=== PATIENT | male | born 1975 | race Caucasian/White ===

== ENCOUNTER 2016-07-15 11:50 | Emergency (ER) | payer BC, OTHER ==
[~2016-07-15] VITALS: Ht 190.5 cm; Wt 87.5 kg
[~2016-07-15 11:50] MED LIST: ACET325T96 PO; ASCA500 PO; CHOL100010 PO; CLS1 PO; CYAN100020 PO; ESCI1TAB10 PO; HYDR-5688 PO; PRD5 PO; RMCI IV; RWSE PR; ZOLP5TAB PO
[2016-07-15 11:53] VITALS: TEMP 36.5; Ht 190.5 cm; Wt 87.5 kg
[2016-07-15] MEDS ORDERED: DULO60CA44 PO (12:07)
[2016-07-15] MEDS ORDERED: VEDO1INJ IV (12:07)
[2016-07-15] MEDS ORDERED: ONDANSETRON INJ 2 MG/ML 2 ML VIAL IV STA (12:27)
[2016-07-15] MEDS ORDERED: SODIUM CHLORIDE 0.9% 1000ML 1,000 ML IV STA (12:27)
[2016-07-15 12:57] LABS: BASO % 0.3 %; BASO ABS # 0.02 K/uL (0-0.2); COMPLETE YES; EOS % 5.3 %; HEMATOCRIT 38.5 % (42-52); IG% 0.4 %; LYMPH % 21.1 %; LYMPH ABS # 1.55 K/uL (1.2-3.4); MEAN CELL VOLUME 79.7 fL (80-100); MEAN CORPUSCULAR HEMOGLOBIN 28.6 pg (25-34); MEAN CORPUSCULAR HGB CONC 35.8 g/dl (32-36); MEAN PLATELET VOLUME 8.5 fL (7.4-10.4); MONO % 6.5 %; NEUT % 66.4 %; PLATELET COUNT 155 K/uL (130-400); RED BLOOD COUNT 4.83 M/uL (4.7-6.1); WHITE BLOOD COUNT 7.34 K/uL (4.8-10.8)
[2016-07-15 13:15] LABS: CALCIUM 8.8 mg/dl (8.5-10.1); POTASSIUM 3.4 mmol/L (3.5-5.1)
[2016-07-15] MEDS ORDERED: PRED20TA PO (14:41)
--- NOTE | 2016-07-15 14:55 | Gastrointestinal Consultation ---
Gastrointestinal Consultation Date of Consultation: Jul 15, 2016 Consulting Physician: Donis Reason for Consultation: IBD flare History of Present Illness Patient is a 40 year old male with a past medical history significant for ulcerative colitis. This was first diagnosed in 2003. He presented to the ED today for evaluation of continued rectal bleeding with diarrhea and associated abdominal pain. GI was consulted. He follows closely with Dr. Edouard. He has failed treatment with Remicade, mesalamine, steroids and recently started treatment with entyvio infusion (first dose 07/14/16). He reports continued bloody BM, reporting stooling up to 10 times daily with associated abdominal pain. His abdominal pain is localized in the left lower quadrant and is sharp and cramping. He denies fever,chills, chest pain, SOB, black BMs, N/V. The patient is adamant about going home this afternoon and does not wish to be admitted for IV steroid treatment or a more thorough inpatient work-up, stating "I cannot miss work tomorrow". He is without an elevated white count and HGB is 13.8. His most recent colonoscopy was in May - severe proctosigmoiditis. Past Medical/Surgical History Medical Problems: (1) Abdominal pain Status: Acute (2) GI bleed Status: Acute (3) Intractable pain Status: Acute (4) Nausea vomiting and diarrhea Status: Acute (5) Renal colic Status: Acute Family History Diabetes mellitus FHx: cancer Social History Smoking Status: Never Smoker Alcohol Use: occasionally Drug Use: none Marital Status: Housing Status: lives with family Occupation Status: employed Allergies Coded Allergies: Mercaptopurine (Verified Allergy, Severe, SUPPRESSED IMMUNITY, 07/15/16) Morphine (Verified Adverse Reaction, Mild, HEADACHE, 07/15/16) Prochlorperazine (Verified Adverse Reaction, Mild, DYSTONIC, 07/15/16) NSAIDs (Verified Adverse Reaction, Unknown, SEE BELOW, 07/15/16) DOES NOT TAKE D/T COLITIS Current Medications Home Meds and Scripts Medications Dose Route/Sig Max Daily Dose Days Date Category Cymbalta (Duloxetine Hcl) 60 Mg Cap 60 Mg PO DAILY 07/15/16 Reported Entyvio (Vedolizumab) 300 Mg Inj Unknown Dose IV 07/15/16 Reported Vitamin B12 (Cyanocobalamin) 1,000 Mcg Tab 1,000 Mcg PO DAILY 04/08/16 Reported Vitamin D (Cholecalciferol) 1,000 Unit Tab 1,000 Units PO DAILY 04/08/16 Reported Vitamin C (Ascorbic Acid) 500 Mg Tab 500 Mg PO DAILY 04/08/16 Reported [place] 5MG/325MG (Acetaminophen/Hydrocodone Bitart) Tab 1 Tablet PO Q4H PRN 04/08/16 Reported Ambien (Zolpidem Tartrate) 5 Mg Tab 1 Tab PO HS PRN 30 11/29/15 Reported Tylenol (Acetaminophen) 325 Mg Tab 325 Mg PO Q4 PRN 11/17/15 Reported Review of Systems Constitutional: No chills, No fever Respiratory: No cough, No shortness of breath Cardiac: No chest pain, No edema Abdomen: + GI bleeding, + diarrhea, + pain, No nausea, No vomiting Physical Exam Date Time Temp Pulse Resp B/P Pulse Ox O2 Delivery O2 Flow Rate FiO2 07/15/16 13:38 81 16 99 Room Air 07/15/16 12:40 74 18 117/78 97 Room Air 07/15/16 11:53 36.5 90 18 137/90 97 Room Air General Appearance: no apparent distress Eyes: PERRL ENT: hearing grossly normal Neck: supple, trachea midline Respiratory/Chest: lungs clear, normal breath sounds, no respiratory distress, no accessory muscle use Cardiovascular: regular rate, rhythm, no edema, no gallop, no JVD, no murmur Abdomen: normal bowel sounds, soft, no organomegaly, no pulsatile mass, + tenderness Neurologic/Psych: alert, normal mood/affect, oriented x 3 Skin: normal color, no jaundice, warm/dry, no rash Laboratory Results Last 24 Hours Test 07/15/16 12:34 White Blood Count 7.34 K/uL Red Blood Count 4.83 M/uL Hemoglobin 13.8 g/dL Hematocrit 38.5 % Mean Corpuscular Volume 79.7 fL Mean Corpuscular Hemoglobin 28.6 pg Mean Corpuscular Hemoglobin Concent 35.8 g/dl Platelet Count 155 K/uL Mean Platelet Volume 8.5 fL Neutrophils (%) (Auto) 66.4 % Lymphocytes (%) (Auto) 21.1 % Monocytes (%) (Auto) 6.5 % Eosinophils (%) (Auto) 5.3 % Basophils (%) (Auto) 0.3 % Neutrophils # (Auto) 4.87 K/uL Lymphocytes # (Auto) 1.55 K/uL Monocytes # (Auto) 0.48 K/uL Eosinophils # (Auto) 0.39 K/uL Basophils # (Auto) 0.02 K/uL RDW Standard Deviation 43.8 fL RDW Coefficient of Variation 15.1 % Immature Granulocyte % (Auto) 0.4 % Immature Granulocyte # (Auto) 0.03 K/uL Sodium Level 141 mmol/L Potassium Level 3.4 mmol/L Chloride Level 106 mmol/L Carbon Dioxide Level 23 mmol/L Anion Gap 12.0 mmol/L Blood Urea Nitrogen 12 mg/dl Creatinine 1.00 mg/dl Est Creatinine Clear Calc Drug Dose 115.0 ml/min Estimated GFR () 107.1 Estimated GFR (Non- 92.4 BUN/Creatinine Ratio 12.0 Random Glucose 83 mg/dl Calcium Level 8.8 mg/dl Total Bilirubin 0.5 mg/dl Direct Bilirubin 0.1 mg/dl Aspartate Amino Transf (AST/SGOT) 15 U/L Alanine Aminotransferase (ALT/SGPT) 16 U/L Alkaline Phosphatase 52 U/L Total Protein 6.8 gm/dl Albumin 3.5 gm/dl Lipase 134 U/L Impression Patient is a 40 year old male with abdominal pain, rectal bleeding and diarrhea with a recent colonoscopy less than a month ago that was suggestive of severe proctosigmoiditis. He has recently stated Entyvio but appears to be in an acute flare, will treat with steroids now. Plan 1. stool cultures - c.diff 2. Begin steroid taper - 40 mg prednisone x 1 week, 30 mg prednisone x 1 week, 20 mg prednisone x 1 week, 10 mg prednisone x 1 week 3. Follow up outpatient with Dr. Edouard 4. Please seek medical attention with persisting or worsening rectal bleeding, abdominal pain or if new symptoms arise. Please discharge patient from the ED with a prescription to complete the above described prednisone taper.
[2016-07-15 15:04] VITALS: BP 122/78; PULSE 68; O2SAT 97
--- NOTE | 2016-07-15 17:45 | EMERGENCY ROOM VISIT NOTE ---
History Report prepared by Adriano: Carmen Treadwell Under the Supervision of: Dr. Bharat Funk M.D. First contact with patient: 12:11 Chief Complaint: ABDOMINAL PAIN Stated Complaint: COLITIS FLARE, AB PAIN, DIARRHEA Nursing Triage Summary: Ulcerative colitis flair for 4 months, told by PCP to come to ED. Unable to keep hydrated. 9lb weight loss in 8 days. Diarrhea. History of Present Illness The patient is a 40 year old male who presents to the Emergency Room with complaints of increased pain to his lower left abdominal quadrant over the past 8 days. Currently, he rates his discomfort as a 7/10, which becomes worse after eating, and when moving his bowels. The patient has a history of ulcerative colitis and experienced a flare up for 4 months prior to arrival, including pain to his lower left abdominal quadrant and multiple episodes of bloody diarrhea. At that time, he visited the ED and was hospitalized, and after being seen by GI, he was given mesalamine enemas and was then placed on steroids. As his pain and diarrhea has persisted since that time, the patient had a colonoscopy on June 24, which showed moderately severe proctosigmoiditis. Over the past 8 days, patient has continued to experience worsening pain to his left lower quadrant, as well as several movements of bloody diarrhea. He states that he has not been able to eat or drink very well as it has become to painful , and he now believes that he has become dehydrated. Patient states that he was switched from Remicade to Entyvio yesterday without improvement of his symptoms. He denies recent fevers, chills, chest pain, shortness of breath, vomiting or urinary symptoms. Source of History: patient Onset: over the past 8 days Position: abdomen (LLQ) Symptom Intensity: 7/10 Timing: worsening Modifying Factors (Worsening): eating, defecation Associated Symptoms: + diarrhea, No SOB, No chest pain, No chills, No fevers , No urinary symptoms, No vomiting Review of Systems See HPI for pertinent positives & negatives. A total of 10 systems reviewed and were otherwise negative. Past Medical & Surgical Medical Problems: (1) back surgery (2) Clostridium difficile colitis (3) Ulcerative colitis (4) Ulcerative colitis Family History Diabetes mellitus FHx: cancer Social History Smoking Status: Never Smoker Alcohol Use: occasionally Drug Use: none Marital Status: Housing Status: lives with family Occupation Status: employed Current/Historical Medications Scheduled Ascorbic Acid (Vitamin C), 500 MG PO DAILY Cholecalciferol (Vitamin D), 1,000 UNITS PO DAILY Cyanocobalamin (Vitamin B12), 1,000 MCG PO DAILY Duloxetine Hcl (Cymbalta), 60 MG PO DAILY Prednisone (Prednisone), 2 TAB PO DAILY Scheduled PRN Acetaminophen Tab (Tylenol), 325 MG PO Q4 PRN for Pain or Fever Hydrocodone/Acetaminophen 5MG/325MG ([place] 5MG/325MG), 1 TABLET PO Q4H PRN for Pain Zolpidem Tartrate (Ambien), 1 TAB PO HS PRN for Sleep Miscellaneous Medications Vedolizumab (Entyvio), Unknown Dose IV Allergies Coded Allergies: Mercaptopurine (Verified Allergy, Severe, SUPPRESSED IMMUNITY, 07/15/16) Morphine (Verified Adverse Reaction, Mild, HEADACHE, 07/15/16) Prochlorperazine (Verified Adverse Reaction, Mild, DYSTONIC, 07/15/16) NSAIDs (Verified Adverse Reaction, Unknown, SEE BELOW, 07/15/16) DOES NOT TAKE D/T COLITIS Physical Exam Vital Signs Date Time Temp Pulse Resp B/P Pulse Ox O2 Delivery O2 Flow Rate FiO2 07/15/16 15:04 68 16 122/78 97 07/15/16 13:38 81 16 99 Room Air 07/15/16 12:40 74 18 117/78 97 Room Air 07/15/16 11:53 36.5 90 18 137/90 97 Room Air Physical Exam Constitutional: Vital signs reviewed. Eyes: Pupils are equal round reactive to light. Conjunctiva are noninjected. ENT: Pharynx is clear without erythema or exudate. Mucous membranes are moist. Neck supple without meningeal signs. Respiratory: Clear to auscultation bilaterally. Breath sounds are equal bilaterally. Cardiovascular: Regular rate and rhythm. No rubs or gallops. GI: Soft, nondistended. Tenderness to the left lower quadrant. Bowel sounds are present. Musculoskeletal: No peripheral edema. No CVA tenderness. Integumentary: No cyanosis. Neurological: The patient is awake and alert. No focal deficits. Psychiatric: Normal affect. Medical Decision & Procedures Laboratory Results 07/15/16 12:34 Red Blood Count 4.83, Mean Corpuscular Volume 79.7, Mean Corpuscular Hemoglobin 28.6, Mean Corpuscular Hemoglobin Concent 35.8, Mean Platelet Volume 8.5, Neutrophils (%) (Auto) 66.4, Lymphocytes (%) (Auto) 21.1, Monocytes (%) (Auto) 6.5, Eosinophils (%) (Auto) 5.3, Basophils (%) (Auto) 0.3, Neutrophils # (Auto) 4.87, Lymphocytes # (Auto) 1.55, Monocytes # (Auto) 0.48, Eosinophils # (Auto) 0.39, Basophils # (Auto) 0.02 07/15/16 12:34 Test 07/15/16 12:34 White Blood Count 7.34 K/uL (4.8-10.8) Red Blood Count 4.83 M/uL (4.7-6.1) Hemoglobin 13.8 g/dL (14.0-18.0) Hematocrit 38.5 % (42-52) Mean Corpuscular Volume 79.7 fL (80-100) Mean Corpuscular Hemoglobin 28.6 pg (25-34) Mean Corpuscular Hemoglobin Concent 35.8 g/dl (32-36) Platelet Count 155 K/uL (130-400) Mean Platelet Volume 8.5 fL (7.4-10.4) Neutrophils (%) (Auto) 66.4 % Lymphocytes (%) (Auto) 21.1 % Monocytes (%) (Auto) 6.5 % Eosinophils (%) (Auto) 5.3 % Basophils (%) (Auto) 0.3 % Neutrophils # (Auto) 4.87 K/uL (1.4-6.5) Lymphocytes # (Auto) 1.55 K/uL (1.2-3.4) Monocytes # (Auto) 0.48 K/uL (0.11-0.59) Eosinophils # (Auto) 0.39 K/uL (0-0.5) Basophils # (Auto) 0.02 K/uL (0-0.2) RDW Standard Deviation 43.8 fL (36.4-46.3) RDW Coefficient of Variation 15.1 % (11.5-14.5) Immature Granulocyte % (Auto) 0.4 % Immature Granulocyte # (Auto) 0.03 K/uL (0.00-0.02) Anion Gap 12.0 mmol/L (3-11) Est Creatinine Clear Calc Drug Dose 115.0 ml/min Estimated GFR () 107.1 Estimated GFR (Non- 92.4 BUN/Creatinine Ratio 12.0 (10-20) Calcium Level 8.8 mg/dl (8.5-10.1) Total Bilirubin 0.5 mg/dl (0.2-1) Direct Bilirubin 0.1 mg/dl (0-0.2) Aspartate Amino Transf (AST/SGOT) 15 U/L (15-37) Alanine Aminotransferase (ALT/SGPT) 16 U/L (12-78) Alkaline Phosphatase 52 U/L (45-117) Total Protein 6.8 gm/dl (6.4-8.2) Albumin 3.5 gm/dl (3.4-5.0) Lipase 134 U/L (73-393) Laboratory results as reviewed by me. Medications Administered Medications (Trade) Dose Ordered Sig/Luis Carlos Route Start Time Stop Time Status Last Admin Dose Admin Ondansetron HCl 4 mg 4 mg NOW STAT IV 07/15/16 12:27 07/15/16 12:29 DC 07/15/16 12:41 4 MG Sodium Chloride (Nss 1000ml) 1,000 ml @ 999 mls/hr Q1H1M STAT IV 07/15/16 12:27 07/15/16 13:27 DC 07/15/16 12:41 999 MLS/HR ED Course 1215: The patient was evaluated in room A4. A complete history and physical exam was performed. 1227: NSS bolus IV and Zofran 4 mg IV were ordered. 1335: I have reviewed the results of the patient's previous colonoscopy, as well as his lab tests today. The lease attendant will be contacted. 1340: I discussed the patient's case with Yvonne Chang PA-C of GI. She will be in to evaluate the patient. 1440: Yvonne Chang PA-C has evaluated the patient. She suggested placing him on 40 mg of Prednisone for a week, and would then start him on a taper when she follows up with him in their office next week. Medical Decision This is a 40-year-old male who presents with abdominal pain. Differential diagnosis includes ulcerative colitis flare, enteritis, colitis, anemia. I did perform a limited focused review of portions of the patient's old chart on the electronic medical record. The patient was admitted in March for an ulcerative colitis flare. He was seen by GI, who added a mesalamine enema, then placed him on steroids. The patient also had a colonoscopy on June 24, which showed moderately severe proctosigmoiditis. I did evaluate the patient as noted above. He is presenting with continued pain for the past 4 months which has worsened over the past 8 days. IV access was established. I did treat the patient with IV Zofran. He was also given normal saline IV. I did order and review the patient's blood work as noted in the electronic medical record. He is slightly anemic. His white blood cell count is not elevated. His potassium is slightly low. This is likely from his diarrhea. I did consult gastroenterology. The patient was evaluated here by gastroenterology and after discussion with the patient they recommended the patient take prednisone. She asked me to place the patient on 40 mg of prednisone daily for a week and they will continue tapering prednisone follow up. The patient was therefore discharged with a prescription for prednisone. [place] Drug Monitoring Program Search Results: patient reviewed within database Drug Monitoring Findings: Patient is on the no narcotics list. Consults Time Called: 1335, 1440 Consulting Physician: Yvonne Chang PA-C GI Returned Call: 1340, 1440 1340: Discussed the patient's case. She will be in to evaluate him. 1440: Yvonne Chang PA-C has evaluated the patient. She suggested placing him on 40 mg of Prednisone for a week, and would then start him on a taper when she follows up with him in their office next week. Impression Primary Impression: Exacerbation of ulcerative colitis Scribe Attestation The scribe's documentation has been prepared under my direct and personally reviewed by me in its entirety. I confirm that the note above accurately reflects all work, treatment, procedures, and medical decision making performed by me. Departure Information Dispostion Home / Self-Care Prescriptions Prednisone (Prednisone) 20 Mg Tab 2 TAB PO DAILY for 7 Days, #14 TAB FOR 4 DAYS Prov: Bharat Funk M.D. 07/15/16 Referrals Oscar Ruiz M.D. (PCP) Forms Call Back Authorization, HOME CARE DOCUMENTATION FORM, IMPORTANT VISIT INFORMATION Patient Instructions Colitis Ulcerative Ch, My [facility] Additional Instructions You have been examined and treated today on an emergency basis only. This is not a substitute for, or an effort to provide, complete comprehensive medical care. It is impossible to recognize and treat all injuries or illnesses in a single emergency department visit. It is therefore important that you follow up closely with your physician within a week. Call as soon as possible for an appointment. Return for worsening symptoms or if you develop fever or any other concerning symptoms. Problem Qualifiers Primary Impression: Exacerbation of ulcerative colitis Digestive disease complication type: with rectal bleeding Qualified Codes: K51.911 - Ulcerative colitis, unspecified with rectal bleeding
[2016-09-10] MEDS ORDERED: ONDA8TAB12 PO (13:31)
== END 2016-07-15 15:04 | disposition home or self-care (01) ==
LOC: C.EDB 11:52 → C.EDA 15:04
DX: K51.90 Ulcerative colitis, unspecified, without complications (principal); Z79.899 Other long term (current) drug therapy

== ENCOUNTER → 2016-09-12 | Day surgery (SDC) | payer BC ==
[2016-09-10 13:31] VITALS: BMI 22.0
[~2016-09-12] VITALS: Ht 190.5 cm; Wt 79.5 kg
[~2016-09-12] MED LIST changes: +ACET-1222 PO; +ATV/1 PO; +CIPR-255 PO; +CLB/200 PO; -CLS1 PO; +DULO60CA44 PO; +ENOX40IN SQ; -ESCI1TAB10 PO; +FENTANYL CITRATE INJ 50 MCG/1 ML 2 ML VIAL IV ONE; +FENTANYL CITRATE INJ 50 MCG/1 ML 2 ML VIAL ONE; +FLUC150T54 PO; +HYDROmorphone INJ 1 MG/ML SYR IV PRN; +LIDOCAINE HCL 2% 2 ML VIAL (20MG/ML) ONE; +MULT-506 PO; +ONDA4TAB10 SL; +ONDA8TAB12 PO; +ONDANSETRON INJ 2 MG/ML 2 ML VIAL ONE; +OXYC-292 PO; +OXYC1TAB3 PO; -PRD5 PO; +PROPOFOL IV EMULSION 10 MG/ML 20 ML VIAL IV ONE; -RMCI IV; -RWSE PR; +ZOLP10TA6 PO
[2016-09-12 10:54] VITALS: Ht 190.5 cm; Wt 79.5 kg
--- NOTE | 2016-09-12 12:16 | Endo History and Physical ---
History & Physical Date of Service: Sep 12, 2016. Chief Complaint: HX ULCERATIVE COLITIS Referring Physician: DR. IFTIKHAR MA History of Present Illness H/o ulcerative colitis Past Surgical History Hx Cardiac Surgery: No Hx Internal Defibrillator: No Hx Pacemaker: No Hx Abdominal Surgery: Yes (APPY) Hx of Implantable Prosthesis: No Hx Post-Op Nausea and Vomiting: No Hx Cancer Surgery: No Hx Thoracic Surgery: Yes (LUMBAR CYST EXCISION-NEUROSURGERY) Hx Orthopedic: Yes (RT RCR, LEFT KNEE ARTHROSCOPY) Hx Urinary Tract Surgery: No Family History None Social History Smoking Status: Never Smoker Hx Substance Use: Yes (SEE MED REC) Hx Alcohol Use: Yes (RARELY) Allergies Coded Allergies: Mercaptopurine (Verified Allergy, Severe, SUPPRESSED IMMUNITY, 09/12/16) Morphine (Verified Adverse Reaction, Mild, HEADACHE, 09/12/16) Prochlorperazine (Verified Adverse Reaction, Mild, DYSTONIC, 09/12/16) NSAIDs (Verified Adverse Reaction, Unknown, SEE BELOW, 09/12/16) DOES NOT TAKE D/T COLITIS Current Medications Reported Home Medications Medications Dose Route/Sig Max Daily Dose Days Date Category Zofran (Ondansetron Hcl) 8 Mg Tab 8 Mg PO PRN PRN 09/10/16 Reported Cymbalta (Duloxetine Hcl) 60 Mg Cap 60 Mg PO QAM 07/15/16 Reported Vitamin B12 (Cyanocobalamin) 1,000 Mcg Tab 1,000 Mcg PO QAM 04/08/16 Reported Vitamin D (Cholecalciferol) 1,000 Unit Tab 1,000 Units PO QAM 04/08/16 Reported Vitamin C (Ascorbic Acid) 500 Mg Tab 500 Mg PO QAM 04/08/16 Reported [place] 5MG/325MG (Acetaminophen/Hydrocodone Bitart) Tab 1 Tablet PO Q4H PRN 04/08/16 Reported Ambien (Zolpidem Tartrate) 5 Mg Tab 1 Tab PO HS PRN 30 11/29/15 Reported Tylenol (Acetaminophen) 325 Mg Tab 325 Mg PO Q4 PRN 11/17/15 Reported Vital Signs Weight (Kilograms): 79.55 Height (Feet): 6 Height (Inches): 3 Date Time Temp Pulse Resp B/P Pulse Ox O2 Delivery O2 Flow Rate FiO2 09/12/16 11:00 37.3 97 18 108/66 95 Room Air Physical Exam General Appearance: no apparent distress Respiratory/Chest: Auscultation: breath sounds normal Cardiovascular: Heart Auscultation: RRR Abdomen: Inspection & Palpation: soft Assessment and Plan UC - EGD/cscopy
[2016-09-12] MEDS: FENTANYL CITRATE INJ 50 MCG/1 ML 2 ML VIAL IV PRN ×2 (13:46→14:25)
--- NOTE | 2016-09-12 13:51 | GI REPORT ---
Procedure Date: 09/12/2016 11:49 AM Procedure: Upper GI endoscopy Indications: Nausea Medicines: See the Anesthesia note for documentation of the administered medications Complications: No immediate complications. Estimated Blood Loss: Estimated blood loss: none. Procedure: Pre-Anesthesia Assessment: - After reviewing the risks and benefits, the patient was deemed in satisfactory condition to undergo the procedure. - ASA Grade Assessment: III - A patient with severe systemic disease. After obtaining informed consent, the endoscope was passed under direct vision. Throughout the procedure, the patient's blood pressure, pulse, and oxygen saturations were monitored continuously. The Scope was introduced through the mouth, and advanced to the second part of duodenum. The upper GI endoscopy was accomplished without difficulty. The patient tolerated the procedure well. Findings: The examined esophagus was normal. A few sessile polyps with no bleeding and no stigmata of recent bleeding were found in the stomach. A few of these polyps were removed with a cold biopsy forceps. Resection and retrieval were complete. The exam of the stomach was otherwise normal. The examined duodenum was normal. Biopsies were taken with a cold forceps in the entire duodenum for histology. Impression: - A few gastric polyps, sampled. Otherwise normal exam. Recommendation: - Await pathology results. - Discharge patient to home. Sam Edouard M.D. Sam Edouard MD 09/12/2016 1:51:47 PM This report has been signed electronically. Note Initiated On: 09/12/2016 11:49 AM I attest to the content of the Intraoperative Record and orders documented therein, exceptions below
[2016-09-12 14:15] VITALS: BP 114/69; PULSE 84; O2SAT 98
--- NOTE | 2016-09-12 14:22 | GI REPORT ---
Procedure Date: 09/12/2016 12:36 PM Procedure: Colonoscopy Indications: Follow-up of ulcerative colitis Medicines: See the Anesthesia note for documentation of the administered medications Complications: No immediate complications. Estimated Blood Loss: Estimated blood loss: none. Procedure: Pre-Anesthesia Assessment: - ASA Grade Assessment: III - A patient with severe systemic disease. After I obtained informed consent, the scope was passed under direct vision. Throughout the procedure, the patient's blood pressure, pulse, and oxygen saturations were monitored continuously. The scope was introduced through the anus and advanced to the terminal ileum. The colonoscopy was performed without difficulty. The patient tolerated the procedure well. Findings: The perianal and digital rectal examinations were normal. Prep through entire intestine was fair, with semi solid stool in the proximal colon. There was evidence of severe watson colitis. These changes were more severe distally, with shallow circumferential ulceration in the sigmoid. There was diffuse, circumferential granularity, friability, and edema of the entire colon; the colon was covered in exudate. Ileum was normal. Biopsies taken from throughout the colon and the ileum. Impression: Severe watson colitis. Fair prep. Recommendation: - Discharge patient to home. - Surgery referral. Sam Edouard M.D. Sam Edouard MD 09/12/2016 2:21:59 PM This report has been signed electronically. Note Initiated On: 09/12/2016 12:36 PM I attest to the content of the Intraoperative Record and orders documented therein, exceptions below
[2016-09-12 15:49] LABS: HEMATOCRIT 28.9 % (42-52); MEAN CELL VOLUME 76.1 fL (80-100); MEAN CORPUSCULAR HEMOGLOBIN 25.5 pg (25-34); MEAN CORPUSCULAR HGB CONC 33.6 g/dl (32-36); MEAN PLATELET VOLUME 7.4 fL (7.4-10.4); PLATELET COUNT 178 K/uL (130-400)
--- NOTE | 2016-09-12 15:49 | Discharge Instructions ---
Endoscopy Patient Instructions Date / Procedure(s) Performed Sep 12, 2016. Colonoscopy, EGD Allergy Information Coded Allergies: Mercaptopurine (Verified Allergy, Severe, SUPPRESSED IMMUNITY, 09/12/16) Morphine (Verified Adverse Reaction, Mild, HEADACHE, 09/12/16) Prochlorperazine (Verified Adverse Reaction, Mild, DYSTONIC, 09/12/16) NSAIDs (Verified Adverse Reaction, Unknown, SEE BELOW, 09/12/16) DOES NOT TAKE D/T COLITIS Discharge Date / Findings Sep 12, 2016. Severe colitis. + C diff. Unremarkable EGD. Provider Instructions Activity Restrictions - No exercising or heavy lifting for 24 hours. - Do not drink alcohol the day of the procedure. - Do not drive a car or operate machinery until the day after the procedure. - Do not make any important decisions or sign important papers in 24 hours after the procedure. Following Day: - Return to full activity which may include returning to work/school. Diet Start your diet with liquids and light foods (jello, soup, juice, toast). Then eat your usual diet if not nauseated. Treatment For Common After Affects For mild abdominal pain, bloating, or excessive gas: - Rest - Eat lightly - Lie on right side Follow-Up Information Follow-up with DR. IFTIKHAR MA as scheduled Anesthesia Information What You Should Know You have had a procedure that required some medicine to reduce anxiety and discomfort. This treatment is called moderate sedation. After receiving the treatment, you may be sleepy, but you will be able to breathe on your own. The effects of the treatment may last for several hours. Follow these instructions along with Activity/Diet recommendations noted above: * Do NOT do anything where dizziness or clumsiness would be dangerous. * Rest quietly at home today, then you can be up and about tomorrow. * Have a responsible person stay with you the rest of today. * You may have had an I.V. today. If so, you may take the dressing off later today. Recommendations Call your doctor if: * Trouble breathing * Continuous vomiting for more than 24 hours * Temperature above 101 degrees * Severe abdominal pain or bloating * Pain not relieved by pain medicine ordered * There is increased drainage or redness from any incision * A large amount of rectal bleeding greater than 2-3 tablespoons. (If you had a polyp/s removed or have hemorrhoids, a small amount of blood - from the rectum is to be expected.) * You have any unanswered questions or concerns. IN THE EVENT OF A SERIOUS EMERGENCY, GO TO THE NEAREST EMERGENCY ROOM Your discharge instructions were prepared by provider Sam Guzman. Patient Instructions Signature Page Jesús Cummins Patient (or Guardian) Signature/Date: I have read and understand the instructions given to me by my caregivers. Caregiver/RN/Doctor Signature/Date: The above-named patient and/or guardian has received patient instructions on this date. + Original Patient Signature Page (only) stays with chart. Please make copy for patient.
--- NOTE | 2016-09-12 15:50 | Anesthesiology Progress Note ---
Anesthesia Post Op Note Date & Time Sep 12, 2016 at 15:49 Vital Signs Pain Intensity: 6.0 Vital Signs Past 12 Hours Date Time Temp Pulse Resp B/P Pulse Ox O2 Delivery O2 Flow Rate FiO2 09/12/16 14:15 84 16 114/69 98 Room Air 09/12/16 13:25 94 16 93/52 98 Room Air 09/12/16 13:10 93 16 93/52 97 Room Air 09/12/16 12:55 99 16 105/67 97 Room Air 09/12/16 11:00 37.3 97 18 108/66 95 Room Air Notes Mental Status: alert / awake / arousable, participated in evaluation Pt Amnestic to Procedure: Yes Nausea / Vomiting: adequately controlled Pain: adequately controlled, improving with treatment Airway Patency, RR, SpO2: stable & adequate BP & HR: stable & adequate Hydration State: stable & adequate Anesthetic Complications: no major complications apparent Pain improved with several doses of fentanyl and dilaudid. States pain is now tolerable and is appropriate for discharge. All questions answered.
[2016-09-12 16:11] LABS: C-REACTIVE PROTEIN 7.75 mg/dl (0-0.29)
[2016-09-12 16:29] LABS: BASO % 0.5 %; BASO ABS # 0.04 K/uL (0-0.2); COMPLETE YES; EOS % 15.4 %; IG% 0.4 %; LYMPH % 23.9 %; LYMPH ABS # 1.98 K/uL (1.2-3.4); MONO % 7.5 %; NEUT % 52.3 %
== END | disposition home or self-care (01) ==
LOC: C.GI 10:26
PROVIDERS: ATTEND Internal Medicine Gastroenterology
DX: K51.00 Ulcerative (chronic) pancolitis without complications (principal); R11.0 Nausea; K31.7 Polyp of stomach and duodenum

== ENCOUNTER 2016-10-26 06:13 | Inpatient (IN) | payer BC ==
[2016-10-26] VITALS (7 sets, daily range): BP systolic 94–136; BP diastolic 60–78; PULSE 62–69; TEMP 36.6–36.9; O2SAT 98–99; Ht 190.5 cm; Wt 80.6 kg
[~2016-10-26] VITALS: Ht 190.5 cm; Wt 80.6 kg
[~2016-10-26 06:13] MED LIST changes: -ACET-1222 PO; -ATV/1 PO; -CIPR-255 PO; -CLB/200 PO; -ENOX40IN SQ; -FENTANYL CITRATE INJ 50 MCG/1 ML 2 ML VIAL IV ONE; -FENTANYL CITRATE INJ 50 MCG/1 ML 2 ML VIAL ONE; -FLUC150T54 PO; -HYDROmorphone INJ 1 MG/ML SYR IV PRN; -LIDOCAINE HCL 2% 2 ML VIAL (20MG/ML) ONE; -MULT-506 PO; -ONDA4TAB10 SL; -ONDANSETRON INJ 2 MG/ML 2 ML VIAL ONE; -OXYC-292 PO; -OXYC1TAB3 PO; -PROPOFOL IV EMULSION 10 MG/ML 20 ML VIAL IV ONE; -ZOLP10TA6 PO
[2016-10-26] MEDS ORDERED: ACET-1222 PO (06:48)
[2016-10-26] MEDS ORDERED: ENOX40IN SQ (06:52)
[2016-10-26] MEDS ORDERED: KETOROLAC TROMETHAMINE 30 MG/ML VIAL IV STA (06:53)
[2016-10-26] MEDS ORDERED: HYDROmorphone INJ 2 MG/ML SYR/VIAL IV STA (06:53)
[2016-10-26] MEDS ORDERED: ONDANSETRON INJ 2 MG/ML 2 ML VIAL IV STA (06:53)
[2016-10-26] MEDS ORDERED: HYDROmorphone INJ 2 MG/ML SYR/VIAL ONE ×2 (06:53→12:58)
[2016-10-26] MEDS ORDERED: SODIUM CHLORIDE 0.9% 1000ML 1,000 ML IV STA ×2 (06:53)
[2016-10-26] MEDS ORDERED: MULT-506 PO (06:53)
[2016-10-26 06:54] LABS: HEMATOCRIT 32.9 % (42-52); MEAN CELL VOLUME 74.6 fL (80-100); MEAN CORPUSCULAR HEMOGLOBIN 21.8 pg (25-34); MEAN CORPUSCULAR HGB CONC 29.2 g/dl (32-36); MEAN PLATELET VOLUME 7.7 fL (7.4-10.4); PLATELET COUNT 168 K/uL (130-400); RED BLOOD COUNT 4.41 M/uL (4.7-6.1)
[2016-10-26] MEDS ORDERED: OXYC1TAB3 PO (06:54)
[2016-10-26] MEDS ORDERED: KETOROLAC TROMETHAMINE 30 MG/ML VIAL ONE (06:54)
[2016-10-26] MEDS ORDERED: ONDANSETRON INJ 2 MG/ML 2 ML VIAL ONE (06:54)
--- NOTE | 2016-10-26 06:59 | EMERGENCY ROOM VISIT NOTE ---
History Report prepared by Adriano: He Martino Under the Supervision of: Dr. Rosa M Buck D.O. First contact with patient: 06:44 Chief Complaint: FLANK PAIN Stated Complaint: KIDNEY STONE History of Present Illness The patient is a 41 year old male who presents to the Emergency Room with complaints of persistent left sided flank pain beginning about 1 hour ago. He notes he had a kidney stone about 1 year ago, and that his current pain is similar, just on the other side. He rates his pain a 9/10 in severity. He reports having his colon removed due to ulcerative colitis 3 weeks ago at [facility], but has not had any other issues since this surgery. He has an ostomy bag in his abdomen, and denies and blood in the bag. He also denies any urinary symptoms. He is on oxycodone at home for his pain, but has not taken it in the past few days as he notes he has not needed. The patient admits to having an allergy to compazine, morphine, and mercaptopurine. Source of History: patient Onset: about 1 hour ago Position: other (left flank) Symptom Intensity: 9/10 Quality: other (flank pain) Timing: other (persistent) Associated Symptoms: No urinary symptoms Note: Patient denies any blood in his ostomy. Review of Systems See HPI for pertinent positives & negatives. A total of 10 systems reviewed and were otherwise negative. Past Medical & Surgical Medical Problems: (1) back surgery (2) Clostridium difficile colitis (3) Ulcerative colitis (4) Ulcerative colitis Surgical Problems: (1) History of appendectomy (2) History of knee surgery (3) History of shoulder surgery (4) History of total colectomy Family History Diabetes mellitus FHx: cancer Social History Smoking Status: Never Smoker Alcohol Use: occasionally Drug Use: none Marital Status: Housing Status: lives with family Occupation Status: employed Current/Historical Medications Scheduled Ascorbic Acid (Vitamin C), 500 MG PO QAM Cholecalciferol (Vitamin D), 1,000 UNITS PO QAM Cyanocobalamin (Vitamin B12), 1,000 MCG PO QAM Duloxetine Hcl (Cymbalta), 60 MG PO QAM Enoxaparin (Lovenox), 40 MG SQ DAILY Multivitamin (Multivitamin), 1 TAB PO DAILY Scheduled PRN Acetaminophen (Acetaminophen Extra Stren), 1,000 MG PO Q6H PRN for Pain or Fever Lorazepam (Ativan), 1 MG PO TID PRN for Anxiety Ondansetron Hcl (Zofran), 8 MG PO Q8 PRN for Nausea Oxycodone Ir (Roxicodone Ir), 10 MG PO Q6H PRN for Pain Zolpidem Tartrate (Ambien), 5 MG PO HS PRN for Sleep Allergies Coded Allergies: Mercaptopurine (Verified Allergy, Severe, SUPPRESSED IMMUNITY, 09/12/16) Morphine (Verified Adverse Reaction, Mild, HEADACHE, 09/12/16) Prochlorperazine (Verified Adverse Reaction, Mild, DYSTONIC, 09/12/16) NSAIDs (Verified Adverse Reaction, Unknown, SEE BELOW, 09/12/16) DOES NOT TAKE D/T COLITIS Physical Exam Vital Signs Date Time Temp Pulse Resp B/P Pulse Ox O2 Delivery O2 Flow Rate FiO2 10/26/16 09:35 99 Room Air 10/26/16 08:00 73 16 107/62 99 Room Air 10/26/16 06:17 36.5 91 18 116/80 100 Room Air Physical Exam General: Patient is extremely uncomfortable secondary to left flank pain. HEENT: Head - normocephalic and atraumatic Pupils are equal, round, and reactive to light. Extraocular eye muscles are intact, and sclera are anicteric. Nose - moist nasal mucosa without discharge. Mouth - moist buccal mucosa. Oropharynx is nonerythematous and there is no tonsillar exudate or edema noted. Neck: Supple; no JVD, nuchal rigidity, cervical lymphadenopathy, or auscultated bruits. Heart: Regular rate and rhythm. There is a normal S1 and S2 with no murmurs, clicks, or gallops appreciated. Lungs: Clear to auscultation bilaterally with no wheezes, rales, or rhonchi. Back: Left CVA tenderness noted. Abdomen: Soft, completely nontender, nondistended, with good bowel sounds. There are no palpable pulsatile masses or hepatosplenomegaly. There is no guarding, rigidity, or rebound noted. Extremities: No evidence of cyanosis, clubbing, or edema. There are easily palpable peripheral pulses. Skin: Skin is pale and diaphoretic. Medical Decision & Procedures ER Provider Diagnostic Interpretation: Radiology results as stated below per my review and the radiologist's interpretation: EUFEMIA CHEST RADIOGRAPH AND UPRIGHT AND SUPINE AP RADIOGRAPHS OF THE ABDOMEN FINDINGS: Lung volumes are normal. There is no pneumothorax or pleural effusion. Calcified nodules within the lungs are unchanged and suggest granulomas. Cardiomediastinal silhouette is normal. There is no evidence of pulmonary edema. There is no free air. Bowel gas pattern is normal. No urinary calculi are identified. IMPRESSION: 1. No free air or evidence of bowel obstruction. 2. No urinary calculi identified. 3. No acute cardiopulmonary findings. Electronically signed by: Timbo Stokes M.D. 10/26/2016 7:56 AM Dictated Date/Time: 10/26/2016 7:55 AM RENAL ULTRASOUND FINDINGS: There is no hydronephrosis. The right kidney measures 10.7 x 4.6 x 5.3 cm and the left measures 12.4 x 5.7 x 5.7 cm. No urinary calculi are identified by sonography. There is a 1.6 cm cyst within the lower pole of the right kidney. Neither ureteral jet was identified. Mild splenomegaly is similar to prior CT. Numerous hepatic cysts are noted. A 2 cm hypoechoic right hepatic lobe lesion was shown to likely reflect a hemangioma on prior imaging studies. A small to moderate amount of ascites is noted. IMPRESSION: 1. No hydronephrosis. No calculi identified by sonography. 2. Small to moderate ascites. 3. Several hepatic lesions which likely reflect cysts and hemangiomas, as shown on prior imaging studies. 4. Mild splenomegaly, either unchanged or slightly increased since CT of December 27, 2015. Electronically signed by: Timbo Stokes M.D. 10/26/2016 7:52 AM Dictated Date/Time: 10/26/2016 7:47 AM Laboratory Results 10/26/16 06:33 10/26/16 06:33 Test 10/26/16 00:00 10/26/16 06:25 10/26/16 06:33 Urine Random Creatinine 380.0 mg/dl Urine Random Sodium 194 mEq/L Urine Random Potassium 51.5 mEq/L Urine Random Chloride 248 mEq/L Urine Color YELLOW Urine Appearance CLEAR (CLEAR) Urine pH 5.5 (4.5-7.5) Urine Specific [place] 1.017 (1.000-1.030) Urine Protein NEG (NEG) Urine Glucose (UA) NEG (NEG) Urine Ketones NEG (NEG) Urine Occult Blood TRACE (NEG) Urine Nitrite NEG (NEG) Urine Bilirubin NEG (NEG) Urine Urobilinogen NEG (NEG) Urine Leukocyte Esterase NEG (NEG) Urine WBC (Auto) 1-5 /hpf (0-5) Urine RBC (Auto) 0-4 /hpf (0-4) Urine Hyaline Casts (Auto) 0 /lpf (0-5) Urine Epithelial Cells (Auto) 0-5 /lpf (0-5) Urine Bacteria (Auto) NEG (NEG) Red Blood Count 4.41 M/uL (4.7-6.1) Mean Corpuscular Volume 74.6 fL (80-100) Mean Corpuscular Hemoglobin 21.8 pg (25-34) Mean Corpuscular Hemoglobin Concent 29.2 g/dl (32-36) RDW Standard Deviation 44.4 fL (36.4-46.3) RDW Coefficient of Variation 16.2 % (11.5-14.5) Mean Platelet Volume 7.7 fL (7.4-10.4) Anion Gap 8.0 mmol/L (3-11) Est Creatinine Clear Calc Drug Dose 54.3 ml/min Estimated GFR () 46.0 Estimated GFR (Non- 39.7 BUN/Creatinine Ratio 6.8 (10-20) Calcium Level 8.5 mg/dl (8.5-10.1) Laboratory results per my review. Medications Administered Medications (Trade) Dose Ordered Sig/Luis Carlos Route Start Time Stop Time Status Last Admin Dose Admin Sodium Chloride 1,000 ml @ 999 mls/hr Q1H1M STAT IV 10/26/16 06:53 10/26/16 07:53 DC 10/26/16 07:00 999 MLS/HR Sodium Chloride (Nss 1000ml) 1,000 ml @ 250 mls/hr Q4H STAT IV 10/26/16 06:53 10/26/16 10:52 DC 10/26/16 08:12 250 MLS/HR Ketorolac Tromethamine (Toradol Inj) 30 mg NOW STAT IV 10/26/16 06:53 10/26/16 06:56 DC 10/26/16 07:01 30 MG Hydromorphone HCl (Dilaudid Inj) 2 mg NOW STAT IV 10/26/16 06:53 10/26/16 06:56 DC 10/26/16 07:00 2 MG Ondansetron HCl (Zofran Inj) 4 mg NOW STAT IV 10/26/16 06:53 10/26/16 06:56 DC 10/26/16 07:00 4 MG Hydromorphone HCl (Dilaudid Inj) 1 mg NOW STAT IV 10/26/16 08:06 10/26/16 08:07 DC 10/26/16 08:12 1 MG Hydromorphone HCl (Dilaudid Inj) 1 mg NOW STAT IV 10/26/16 09:53 10/26/16 09:54 DC 10/26/16 10:03 1 MG Procedure Medications Ordered: 0653: Ordered Zofran Inj 4 mg IV, Dilaudid Inj 2 mg IV, Toradol Inj 30 mg IV, NSS 1,000 ml @ 250 mls/hr IV, and NSS 1,000 ml @ 999 mls/hr IV. 0806: Ordered Dilaudid Inj 1 mg IV. 0953: Ordered Dilaudid Inj 1 mg IV. ED Course 0649: Past medical records reviewed. The patient was evaluated in room A3. A complete history and physical exam was performed. In review of the patient's records, it is noted that he has had 4 CT scans of his abdomen and pelvis at this institution, and he describes an additional 3 CT scans in the past 8 months during his most recent flare of ulcerative colitis. 0653: Ordered Zofran Inj 4 mg IV, Dilaudid Inj 2 mg IV, Toradol Inj 30 mg IV, NSS 1,000 ml @ 250 mls/hr IV, and NSS 1,000 ml @ 999 mls/hr IV. 0717: I went to reassess the patient, and he is at US. The nurses tell me that the patient was more comfortable prior to going to US. 0806: Upon returning from radiology, the patient had increased left flank pain. I Ordered Dilaudid Inj 1 mg IV. 0809: I reassessed the patient. He is again more comfortable with the second dose of Dilaudid. He notes he has never had issues with his kidneys in the past. 0848: Discussed the patient's case with Dr. Chandler. The patient will be evaluated for further management. 0953: Ordered Dilaudid Inj 1 mg IV. Medical Decision The patient is a 41 year old male who presents to the Emergency Room with complaints of persistent left sided flank pain beginning about 1 hour ago. Differential Diagnoses: Bowel obstruction, ureteral stone, pyelonephritis, colitis, and perforated viscous. Laboratory Interpretations: WBC of 5.7; hemoglobin is 9.6; creatinine is 2; glucose is 105; UA shows trace blood. This is a 41-year-old male patient with history of ureteral colic and recent total colectomy from ulcerative colitis with colostomy. Plain x-rays and ultrasound were essentially unremarkable. However, the patient 's creatinine has doubled and is now 2.0. I kept the patient abreast of the results. I discussed the case with the [facility] hospitalist and they will evaluate for further management.. Consults Time Called: 0840 Consulting Physician: [place]. [place], [facility] [place] Returned Call: [phone] Discussed the patient's case with Dr. Chandler. The patient will be evaluated for further management. Impression Primary Impression: Acute renal failure Additional Impression: Left flank pain Scribe Attestation The scribe's documentation has been prepared under my direction and personally reviewed by me in its entirety. I confirm that the note above accurately reflects all work, treatment, procedures, and medical decision making performed by me. Departure Information Dispostion Being Evaluated By Hospitalist Referrals Oscar Ruiz M.D. (PCP) Patient Instructions My [facility] Health Problem Qualifiers
[2016-10-26] MEDS ORDERED: ATV/1 PO (07:01)
[2016-10-26 07:04] LABS: BUN/CREATININE RATIO 6.8 (10-20); CALCIUM 8.5 mg/dl (8.5-10.1); POTASSIUM 3.6 mmol/L (3.5-5.1)
[2016-10-26 07:05] LABS: URINE APPEARANCE CLEAR (CLEAR); URINE BILIRUBIN NEG (NEG); URINE COLOR YELLOW; URINE EPITHELIAL CELL AUTO 0-5 /lpf (0-5); URINE NITRITE NEG (NEG); URINE PH 5.5 (4.5-7.5); URINE SPECIFIC GRAVITY 1.017 (1.000-1.030); UROBILINOGEN NEG (NEG); ZZUR CULT IF INDIC CLEAN CATCH NO
[2016-10-26 07:06] LABS: MANUAL MICROSCOPIC REQUIRED? NO; REVIEW REQ? NO
--- NOTE | 2016-10-26 07:53 | DIAGNOSTIC IMAGING REPORT ---
RENAL ULTRASOUND CLINICAL HISTORY: Evaluate for left-sided ureteral stone. COMPARISON STUDY: CT of the abdomen and pelvis December 27, 2015. TECHNIQUE: Sonography of the kidneys and the urinary bladder was performed. FINDINGS: There is no hydronephrosis. The right kidney measures 10.7 x 4.6 x 5.3 cm and the left measures 12.4 x 5.7 x 5.7 cm. No urinary calculi are identified by sonography. There is a 1.6 cm cyst within the lower pole of the right kidney. Neither ureteral jet was identified. Mild splenomegaly is similar to prior CT. Numerous hepatic cysts are noted. A 2 cm hypoechoic right hepatic lobe lesion was shown to likely reflect a hemangioma on prior imaging studies. A small to moderate amount of ascites is noted. IMPRESSION: 1. No hydronephrosis. No calculi identified by sonography. 2. Small to moderate ascites. 3. Several hepatic lesions which likely reflect cysts and hemangiomas, as shown on prior imaging studies. 4. Mild splenomegaly, either unchanged or slightly increased since CT of December 27, 2015. Electronically signed by: Timbo Stokes M.D. 10/26/2016 7:52 AM Dictated Date/Time: 10/26/2016 7:47 AM
--- NOTE | 2016-10-26 07:58 | DIAGNOSTIC IMAGING REPORT ---
PA CHEST RADIOGRAPH AND UPRIGHT AND SUPINE AP RADIOGRAPHS OF THE ABDOMEN CLINICAL HISTORY: Abdominal pain. Evaluate for left-sided stone and small bowel obstruction. COMPARISON STUDY: CT of the abdomen and pelvis December 27, 2015 and chest radiograph April 09, 2016. FINDINGS: Lung volumes are normal. There is no pneumothorax or pleural effusion. Calcified nodules within the lungs are unchanged and suggest granulomas. Cardiomediastinal silhouette is normal. There is no evidence of pulmonary edema. There is no free air. Bowel gas pattern is normal. No urinary calculi are identified. IMPRESSION: 1. No free air or evidence of bowel obstruction. 2. No urinary calculi identified. 3. No acute cardiopulmonary findings. Electronically signed by: Timbo Stokes M.D. 10/26/2016 7:56 AM Dictated Date/Time: 10/26/2016 7:55 AM
[2016-10-26] MEDS ORDERED: HYDROmorphone INJ 1 MG/ML SYR IV STA ×2 (08:06→09:53)
--- NOTE | 2016-10-26 10:14 | History and Physical ---
History & Physical Date & Time of Service: Oct 26, 2016 at 10:07 Chief Complaint: Kidney Stone Primary Care Physician: Oscar Ruiz M.D. History of Present Illness Source: patient Mr. Au is a 41 year-old male with known Ulcerative colitis s/p recent total colectomy with colostomy a few weeks ago at [facility] and a prior renal calculi a year ago who comes in with left flank pain x1 day. He reports he was doing well post-op and was in his usual state of health until this morning when he had sudden onset left flank pain reminiscent of his kidney stone pain from a year ago. He has been eating and drinking well until this morning, no nausea/ vomiting. No NSAID use. No increased output from colostomy bag but did note some watery, loose output in the past 24 hours. He notes no dysuria, hematuria, or increased in urinary frequency. No fevers/chills. Of note, he was given toradol this morning prior to labs coming back. Past Medical/Surgical History Medical Problems: (1) back surgery Status: Chronic (2) Clostridium difficile colitis Status: Resolved (3) Ulcerative colitis Status: Chronic Family History Diabetes mellitus FHx: cancer PMH - ulcerative colitis s/p total colectomy with ostomy - anxiety/depression PSH - multiple scopings EGD/colonoscopy - appendectomy - total colectomy with colostomy Fhx: no kidney diseases known Social History Smoking Status: Never Smoker Drug Use: none Marital Status: Housing status: lives with significant other Occupational Status: employed Immunizations History of Influenza Vaccine: No History of Tetanus Vaccine?: Yes History of Pneumococcal: No History of Hepatitis B Vaccine: No Allergies Coded Allergies: Mercaptopurine (Verified Allergy, Severe, SUPPRESSED IMMUNITY, 09/12/16) Morphine (Verified Adverse Reaction, Mild, HEADACHE, 09/12/16) Prochlorperazine (Verified Adverse Reaction, Mild, DYSTONIC, 09/12/16) NSAIDs (Verified Adverse Reaction, Unknown, SEE BELOW, 09/12/16) DOES NOT TAKE D/T COLITIS Home Medications Scheduled Ascorbic Acid (Vitamin C), 500 MG PO QAM Cholecalciferol (Vitamin D), 1,000 UNITS PO QAM Cyanocobalamin (Vitamin B12), 1,000 MCG PO QAM Duloxetine Hcl (Cymbalta), 60 MG PO QAM Enoxaparin (Lovenox), 40 MG SQ DAILY Multivitamin (Multivitamin), 1 TAB PO DAILY Scheduled PRN Acetaminophen (Acetaminophen Extra Stren), 1,000 MG PO Q6H PRN for Pain or Fever Lorazepam (Ativan), 1 MG PO TID PRN for Anxiety Ondansetron Hcl (Zofran), 8 MG PO Q8 PRN for Nausea Oxycodone Ir (Roxicodone Ir), 10 MG PO Q6H PRN for Pain Zolpidem Tartrate (Ambien), 5 MG PO HS PRN for Sleep Review of Systems ROS as per HPI. Rest of ROS negative. Physical Exam Vital Signs Date Time Temp Pulse Resp B/P Pulse Ox O2 Delivery O2 Flow Rate FiO2 10/26/16 09:35 99 Room Air 10/26/16 08:00 73 16 107/62 99 Room Air 10/26/16 06:17 36.5 91 18 116/80 100 Room Air NAD, aox3, anicteric s1 s2 rrr, no murmurs/rubs/gallops appreciated ctab no w/r/r abd soft, ostomy noted with minimal output, nt/nd +left cva tenderness no LE edema Diagnostics Laboratory Results Results Past 24 Hours Test 10/26/16 06:25 10/26/16 06:33 Range/Units Urine Color YELLOW Urine Appearance CLEAR CLEAR Urine pH 5.5 4.5-7.5 Urine Specific [place] 1.017 1.000-1.030 Urine Protein NEG NEG Urine Glucose (UA) NEG NEG Urine Ketones NEG NEG Urine Occult Blood TRACE NEG Urine Nitrite NEG NEG Urine Bilirubin NEG NEG Urine Urobilinogen NEG NEG Urine Leukocyte Esterase NEG NEG Urine WBC (Auto) 1-5 0-5 /hpf Urine RBC (Auto) 0-4 0-4 /hpf Urine Hyaline Casts (Auto) 0 0-5 /lpf Urine Epithelial Cells (Auto) 0-5 0-5 /lpf Urine Bacteria (Auto) NEG NEG White Blood Count 5.70 4.8-10.8 K/uL Red Blood Count 4.41 4.7-6.1 M/uL Hemoglobin 9.6 14.0-18.0 g/dL Hematocrit 32.9 42-52 % Mean Corpuscular Volume 74.6 80-100 fL Mean Corpuscular Hemoglobin 21.8 25-34 pg Mean Corpuscular Hemoglobin Concent 29.2 32-36 g/dl RDW Standard Deviation 44.4 36.4-46.3 fL RDW Coefficient of Variation 16.2 11.5-14.5 % Platelet Count 168 130-400 K/uL Mean Platelet Volume 7.7 7.4-10.4 fL Sodium Level 143 136-145 mmol/L Potassium Level 3.6 3.5-5.1 mmol/L Chloride Level 108 98-107 mmol/L Carbon Dioxide Level 27 21-32 mmol/L Anion Gap 8.0 3-11 mmol/L Blood Urea Nitrogen 14 7-18 mg/dl Creatinine 2.00 0.60-1.40 mg/dl Est Creatinine Clear Calc Drug Dose 54.3 ml/min Estimated GFR () 46.0 Estimated GFR (Non- 39.7 BUN/Creatinine Ratio 6.8 10-20 Random Glucose 105 70-99 mg/dl Calcium Level 8.5 8.5-10.1 mg/dl Diagnostic Radiology RENAL ULTRASOUND CLINICAL HISTORY: Evaluate for left-sided ureteral stone. COMPARISON STUDY: CT of the abdomen and pelvis December 27, 2015. TECHNIQUE: Sonography of the kidneys and the urinary bladder was performed. FINDINGS: There is no hydronephrosis. The right kidney measures 10.7 x 4.6 x 5.3 cm and the left measures 12.4 x 5.7 x 5.7 cm. No urinary calculi are identified by sonography. There is a 1.6 cm cyst within the lower pole of the right kidney. Neither ureteral jet was identified. Mild splenomegaly is similar to prior CT. Numerous hepatic cysts are noted. A 2 cm hypoechoic right hepatic lobe lesion was shown to likely reflect a hemangioma on prior imaging studies. A small to moderate amount of ascites is noted. IMPRESSION: 1. No hydronephrosis. No calculi identified by sonography. 2. Small to moderate ascites. 3. Several hepatic lesions which likely reflect cysts and hemangiomas, as shown on prior imaging studies. 4. Mild splenomegaly, either unchanged or slightly increased since CT of December 27, 2015. PA CHEST RADIOGRAPH AND UPRIGHT AND SUPINE AP RADIOGRAPHS OF THE ABDOMEN CLINICAL HISTORY: Abdominal pain. Evaluate for left-sided stone and small bowel obstruction. COMPARISON STUDY: CT of the abdomen and pelvis December 27, 2015 and chest radiograph April 09, 2016. FINDINGS: Lung volumes are normal. There is no pneumothorax or pleural effusion. Calcified nodules within the lungs are unchanged and suggest granulomas. Cardiomediastinal silhouette is normal. There is no evidence of pulmonary edema. There is no free air. Bowel gas pattern is normal. No urinary calculi are identified. IMPRESSION: 1. No free air or evidence of bowel obstruction. 2. No urinary calculi identified. 3. No acute cardiopulmonary findings. Impression Assessment and Plan 1. Left flank pain - h/o kidney stones - recent bowel resection - obtain CT abd/pelv with oral contrast to evaluate for radiolucent kidney stones and bowel integrity - pain meds as ordered, prn zofran - high-rate IVF fluids for now - UA 2. ARIN - no known CKD - no hydronephrosis on CT - may have some element of volume depletion - given toradol prior to lab results - avoid NSAIDs and non-urgent IV contrast studies, and other nephrotoxins - avoid volume depletion and hypotension - IVF - send urine studies 3. UC -s/p total colectomy - monitor ostomy output - IVF hydration 4. Anxiety/depression - cont cymbalta and prn benzos for now 5. 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 Y/N: Yes Risk Level: Very Low
[2016-10-26] MEDS ORDERED: HYDROmorphone INJ 1 MG/ML SYR IV PRN ×2 (10:15→15:30)
[2016-10-26] MEDS ORDERED: ENOXAPARIN 40 MG/0.4 ML SYR SQ SCH (10:15)
[2016-10-26] MEDS ORDERED: HYDROmorphone INJ 2 MG/ML SYR/VIAL IV PRN (10:15)
[2016-10-26] MEDS ORDERED: LORAZEPAM 1 MG TAB PO PRN (10:15)
--- NOTE | 2016-10-26 13:02 | DIAGNOSTIC IMAGING REPORT ---
CT OF THE ABDOMEN AND PELVIS WITH ORAL CONTRAST ONLY CT DOSE: 416.12 mGy.cm CLINICAL HISTORY: Flank pain. Recent colectomy. TECHNIQUE: Axial images of the abdomen and pelvis were obtained without IV contrast. Oral contrast was administered. COMPARISON STUDY: CT of the abdomen and pelvis December 27, 2015 and renal ultrasound and abdominal series performed earlier today. FINDINGS: Evaluation of the abdomen and pelvis is suboptimal given the lack of IV contrast. Numerous hepatic cysts are noted. Intermediate attenuation hepatic lesions were shown to represent hemangiomas on prior imaging studies. There is a small to moderate amount of abdominal and pelvic ascites. There is upper omental infiltration which is moderate in degree. There are findings consistent with a subtotal colectomy. There is a right lower quadrant ileostomy. There is no evidence for a bowel obstruction. No pneumatosis, free air or portal venous gas is present. No renal, ureteral or bladder calculi are present. No suspicious skeletal lesions are identified. There is a cyst within the lower pole of the right kidney, better depicted on prior contrast enhanced exams. IMPRESSION: 1. Mild left collecting system dilatation. No ureteral calculi identified. This finding is nonspecific but could be related to a recently passed calculus or less likely an infectious process. 2. Status post subtotal colectomy. No bowel obstruction. Small to moderate abdominal and pelvic ascites. 3. Upper omental infiltration. This is nonspecific in the early postoperative setting although an omental infarct could have this imaging appearance. Electronically signed by: Timbo Stokes M.D. 10/26/2016 1:00 PM Dictated Date/Time: 10/26/2016 12:41 PM
[2016-10-26] MEDS ORDERED: IV FLUIDS COMPLETED PRN (13:15)
[2016-10-26 13:59] LABS: URINE APPEARANCE CLEAR (CLEAR); URINE BILIRUBIN NEG (NEG); URINE COLOR YELLOW; URINE NITRITE NEG (NEG); URINE PH 5.5 (4.5-7.5); UROBILINOGEN NEG (NEG)
[2016-10-26 14:03] LABS: MANUAL MICROSCOPIC REQUIRED? NO; REVIEW REQ? NO
[2016-10-26 14:17] LABS: PARTIAL THROMBOPLASTIN RATIO 1.1; PROTHROMBIN TIME (PATIENT) 10.7 SECONDS (9.0-12.0)
[2016-10-26] MEDS ORDERED: NURSING VERBAL MED ORDER ONE (15:00)
[2016-10-26] MEDS: SODIUM CHLORIDE 0.45% 1000ML 1,000 ML IV SCH ×2 (15:03→21:46)
[2016-10-26] MEDS: DULOXETINE HCL 60 MG CAP PO SCH (15:04)
[2016-10-26] MEDS: HEPARIN SOD 5000 UNIT/0.5 ML CARP SQ SCH ×2 (15:35→21:48)
[2016-10-26] MEDS: HYDROmorphone INJ 2 MG/ML SYR/VIAL IV PRN ×3 (17:06→21:55)
[2016-10-26] MEDS: ZOLPIDEM TARTRATE 5 MG TAB PO PRN (23:16)
[2016-10-27 00:19] VITALS: BP 109/71; PULSE 94; TEMP 37.2; O2SAT 100
[2016-10-27] MEDS: ONDANSETRON INJ 6 MG in DEXTROSE 5% 50ML 50 ML IV PRN ×3 (00:25→18:18)
[2016-10-27] MEDS: HYDROmorphone INJ 2 MG/ML SYR/VIAL IV PRN ×6 (01:54→12:24)
[2016-10-27] MEDS: SODIUM CHLORIDE 0.45% 1000ML 1,000 ML IV SCH ×4 (03:00→22:08)
[2016-10-27 04:00] VITALS: BP 115/78; PULSE 77
[2016-10-27] MEDS: HEPARIN SOD 5000 UNIT/0.5 ML CARP SQ SCH ×3 (05:49→21:03)
[2016-10-27 07:30] VITALS: BP 126/83; PULSE 82; TEMP 36.9; O2SAT 100
[2016-10-27 07:38] LABS: BASO % 0.1 %; BASO ABS # 0.01 K/uL (0-0.2); EOS % 0.5 %; HEMATOCRIT 28.9 % (42-52); IG% 0.1 %; LYMPH % 14.3 %; MEAN CELL VOLUME 74.5 fL (80-100); MEAN CORPUSCULAR HEMOGLOBIN 22.2 pg (25-34); MEAN CORPUSCULAR HGB CONC 29.8 g/dl (32-36); MEAN PLATELET VOLUME 7.7 fL (7.4-10.4); MONO % 6.7 %; NEUT % 78.3 %; PLATELET COUNT 139 K/uL (130-400); RED BLOOD COUNT 3.88 M/uL (4.7-6.1)
[2016-10-27 08:00] VITALS: O2SAT 100
[2016-10-27] MEDS: MULTIVITAMIN TAB PO SCH (08:04)
[2016-10-27] MEDS: CYANOCOBALAMIN 500 MCG TAB (VIT B-12) PO SCH (08:04)
[2016-10-27] MEDS: DULOXETINE HCL 60 MG CAP PO SCH (08:04)
[2016-10-27 08:08] LABS: COMPLETE YES; TEAR DROP CELLS OCCASIONAL
--- NOTE | 2016-10-27 08:12 | DIAGNOSTIC IMAGING REPORT ---
Duplex renal and to a Doppler DUPLEX RENAL ARTERY CLINICAL HISTORY: persistent left flank pain, eval thrombosis flank pain TECHNIQUE: Renal arterial Doppler COMPARISON STUDY: 10/26/2016 FINDINGS: No evidence for thrombosis. Venous flow characteristics bilaterally are unremarkable. No significant arterial stenotic process of the right kidney. Slight fullness left renal collecting system. No significant proximal renal arterial stenotic process. Possible moderate narrowing distally. IMPRESSION: No significant stenotic process. Slight fullness left renal collecting system. No significant thrombosis of the arterial or venous structures. Electronically signed by: Geovany Allen M.D. 10/27/2016 8:11 AM Dictated Date/Time: 10/27/2016 8:07 AM
[2016-10-27 08:34] LABS: CALCIUM 8.9 mg/dl (8.5-10.1); CREATININE 1.9 mg/dl (0.60-1.40); MAGNESIUM 1.9 mg/dl (1.8-2.4); POTASSIUM 3.9 mmol/L (3.5-5.1)
[2016-10-27] MEDS ORDERED: HYDROmorphone INJ 0.5 MG/0.5 ML SYR ONE (09:09)
[2016-10-27] MEDS ORDERED: HYDROmorphone INJ 0.5 MG/0.5 ML SYR IV ONE (09:15)
[2016-10-27] MEDS ORDERED: NURSING VERBAL MED ORDER ONE (09:15)
[2016-10-27] MEDS ORDERED: NALOXONE HCL 0.4 MG/1 ML VIAL/CARP IV PRN (12:30)
--- NOTE | 2016-10-27 12:44 | Medical Consult ---
Consultation Date of Consultation: October 27, 2016. Attending Physician: Martha Hardin M.D. Reason for Consultation: Left-sided flank pain. History of Present Illness 41-year-old male with past medical history significant for ulcerative colitis presents to [facility] ED complaining of left-sided flank pain. Patient is approximately 1 month s/p colon resection on by Meghan Munson. Patient reports that he had been doing fine since the surgery up until yesterday. Patient reports that pain is similar to pain he experienced approximately 1 year ago when he had a kidney stone. Pain radiates to left groin. Patient has ostomy bag- denies increase in output. In fact, no output from ostomy bag today. Denies pain or burning with urination. Past Medical/Surgical History Medical Problems: (1) Abdominal pain Status: Acute (2) Acute renal failure Status: Acute (3) GI bleed Status: Acute (4) Intractable pain Status: Acute (5) Left flank pain Status: Acute (6) Nausea vomiting and diarrhea Status: Acute (7) Renal colic Status: Acute Surgical History 1. History of Total Colectomy (10/01/16- Meghan) 2. History of Appendectomy 3. History of Knee Surgery 4. History of Shoulder Surgery Family History Diabetes mellitus FHx: cancer Social History Smoking Status: Never Smoker Alcohol Use: occasionally Drug Use: none Marital Status: Housing Status: lives with family Occupation Status: employed Allergies Coded Allergies: Mercaptopurine (Verified Allergy, Severe, SUPPRESSED IMMUNITY, 09/12/16) Morphine (Verified Adverse Reaction, Mild, HEADACHE, 09/12/16) Prochlorperazine (Verified Adverse Reaction, Mild, DYSTONIC, 09/12/16) NSAIDs (Verified Adverse Reaction, Unknown, SEE BELOW, 09/12/16) DOES NOT TAKE D/T COLITIS Current Inpatient Medications Current Inpatient Medications Medications (Trade) Dose Ordered Sig/Luis Carlos Route Start Time Stop Time Status Last Admin Dose Admin Ondansetron HCl 6 mg/Dextrose 53 ml @ 200 mls/hr Q6H PRN IV 10/26/16 10:15 11/25/16 10:14 10/27/16 08:38 200 MLS/HR Sodium Chloride (1/2 Nss 1000ml) 1,000 ml @ 150 mls/hr Q6H40M IV 10/26/16 13:15 11/25/16 13:14 10/27/16 08:04 150 MLS/HR Duloxetine HCl (Cymbalta Cap) 60 mg QAM PO 10/27/16 09:00 11/26/16 08:59 10/27/16 08:04 60 MG Lorazepam (Ativan Tab) 1 mg TID PRN PO 10/26/16 10:15 11/25/16 10:14 Multivitamins (Multivitamin Tab) 1 tab DAILY PO 10/27/16 09:00 11/26/16 08:59 10/27/16 08:04 1 TAB Zolpidem Tartrate (Ambien Tab) 5 mg HS PRN PO 10/26/16 10:15 11/25/16 10:14 10/26/16 23:16 5 MG Cyanocobalamin (Vitamin B-12 Tab) 1,000 mcg QAM PO 10/27/16 09:00 11/26/16 08:59 10/27/16 08:04 1,000 MCG Heparin Sodium (Porcine) (Heparin Sq 5000 Unit/0.5ml) 5,000 unit Q8 SQ 10/26/16 15:00 11/25/16 14:59 10/27/16 05:49 5,000 UNIT Miscellaneous (Iv Fluids Completed) 1 ea PRN PRN N/A 10/26/16 13:15 10/26/17 13:14 Hydromorphone HCl (Dilaudid Inj) 1 mg Q2H PRN IV 10/26/16 15:30 11/09/16 15:29 10/27/16 00:14 1 MG Hydromorphone HCl (Dilaudid Inj) 2 mg Q2H PRN IV 10/26/16 15:30 11/09/16 15:29 10/27/16 10:29 2 MG Review of Systems Abdomen: + pain Genitourinary - Male: No hematuria, No urinary frequency Physical Exam Date Time Temp Pulse Resp B/P Pulse Ox O2 Delivery O2 Flow Rate FiO2 10/27/16 08:00 100 Room Air 10/27/16 07:30 36.9 82 20 126/83 100 Room Air 10/27/16 04:00 77 115/78 10/27/16 00:19 37.2 94 20 109/71 100 Room Air 20.0 10/26/16 23:59 Room Air 10/26/16 20:00 Room Air 10/26/16 19:45 114/74 10/26/16 17:04 69 117/78 10/26/16 16:00 99 Room Air 10/26/16 14:59 69 105/62 10/26/16 14:54 36.9 62 18 94/60 99 Room Air General Appearance: + moderate distress (Patient sitting in chair next to bed in visible pain and discomfort. ) Head: normocephalic, atraumatic Abdomen/GI: soft, + tenderness (patient did not want abdomen palpated due to pain. ) Laboratory Results Last 24 Hours Test 10/26/16 13:49 10/27/16 07:18 Prothrombin Time 10.7 SECONDS Prothromb Time International Ratio 1.0 Activated Partial Thromboplast Time 27.4 SECONDS Partial Thromboplastin Ratio 1.1 White Blood Count 8.40 K/uL Red Blood Count 3.88 M/uL Hemoglobin 8.6 g/dL Hematocrit 28.9 % Mean Corpuscular Volume 74.5 fL Mean Corpuscular Hemoglobin 22.2 pg Mean Corpuscular Hemoglobin Concent 29.8 g/dl Platelet Count 139 K/uL Mean Platelet Volume 7.7 fL Neutrophils (%) (Auto) 78.3 % Lymphocytes (%) (Auto) 14.3 % Monocytes (%) (Auto) 6.7 % Eosinophils (%) (Auto) 0.5 % Basophils (%) (Auto) 0.1 % Neutrophils # (Auto) 6.58 K/uL Lymphocytes # (Auto) 1.20 K/uL Monocytes # (Auto) 0.56 K/uL Eosinophils # (Auto) 0.04 K/uL Basophils # (Auto) 0.01 K/uL RDW Standard Deviation 45.3 fL RDW Coefficient of Variation 16.5 % Immature Granulocyte % (Auto) 0.1 % Immature Granulocyte # (Auto) 0.01 K/uL Tear Drop Cells OCCASIONAL Sodium Level 140 mmol/L Potassium Level 3.9 mmol/L Chloride Level 106 mmol/L Carbon Dioxide Level 25 mmol/L Anion Gap 9.0 mmol/L Blood Urea Nitrogen 11 mg/dl Creatinine 1.90 mg/dl Est Creatinine Clear Calc Drug Dose 57.2 ml/min Estimated GFR () 49.0 Estimated GFR (Non- 42.2 BUN/Creatinine Ratio 6.0 Random Glucose 107 mg/dl Calcium Level 8.9 mg/dl Magnesium Level 1.9 mg/dl Total Bilirubin 0.5 mg/dl Aspartate Amino Transf (AST/SGOT) 17 U/L Alanine Aminotransferase (ALT/SGPT) 31 U/L Alkaline Phosphatase 62 U/L Total Protein 7.0 gm/dl Albumin 3.5 gm/dl Globulin 3.5 gm/dl Albumin/Globulin Ratio 1.0 CT OF THE ABDOMEN AND PELVIS WITH ORAL CONTRAST ONLY CT DOSE: 416.12 mGy.cm CLINICAL HISTORY: Flank pain. Recent colectomy. TECHNIQUE: Axial images of the abdomen and pelvis were obtained without IV contrast. Oral contrast was administered. COMPARISON STUDY: CT of the abdomen and pelvis December 27, 2015 and renal ultrasound and abdominal series performed earlier today. FINDINGS: Evaluation of the abdomen and pelvis is suboptimal given the lack of IV contrast. Numerous hepatic cysts are noted. Intermediate attenuation hepatic lesions were shown to represent hemangiomas on prior imaging studies. There is a small to moderate amount of abdominal and pelvic ascites. There is upper omental infiltration which is moderate in degree. There are findings consistent with a subtotal colectomy. There is a right lower quadrant ileostomy. There is no evidence for a bowel obstruction. No pneumatosis, free air or portal venous gas is present. No renal, ureteral or bladder calculi are present. No suspicious skeletal lesions are identified. There is a cyst within the lower pole of the right kidney, better depicted on prior contrast enhanced exams. IMPRESSION: 1. Mild left collecting system dilatation. No ureteral calculi identified. This finding is nonspecific but could be related to a recently passed calculus or less likely an infectious process. 2. Status post subtotal colectomy. No bowel obstruction. Small to moderate abdominal and pelvic ascites. 3. Upper omental infiltration. This is nonspecific in the early postoperative setting although an omental infarct could have this imaging appearance. Electronically signed by: Timbo Stokes M.D. 10/26/2016 1:00 PM Dictated Date/Time: 10/26/2016 12:41 PM Duplex renal and to a Doppler DUPLEX RENAL ARTERY CLINICAL HISTORY: persistent left flank pain, eval thrombosis flank pain TECHNIQUE: Renal arterial Doppler COMPARISON STUDY: 10/26/2016 FINDINGS: No evidence for thrombosis. Venous flow characteristics bilaterally are unremarkable. No significant arterial stenotic process of the right kidney. Slight fullness left renal collecting system. No significant proximal renal arterial stenotic process. Possible moderate narrowing distally. IMPRESSION: No significant stenotic process. Slight fullness left renal collecting system. No significant thrombosis of the arterial or venous structures. Electronically signed by: Geovany Allen M.D. 10/27/2016 8:11 AM Dictated Date/Time: 10/27/2016 8:07 AM Assessment & Plan 1. Abdominal Pain- While in to see patient, met with Dr. Mccain, GI, to discuss patient. Dr. Weston and Dr. Mccain spoke regarding patient. Etiology of abdominal pain unknown at this time. Patient may need to return to Dr. Sotelo ([place]). No intervention indicated at this time from a General Surgery standpoint. Will defer to GI. Thank you for this consult, we will continue to follow along. As above. Spoke again with Dr. Mccain who continues to feel there is no gen surgery issue. he has a call out to his colorectal surgeon in [place]. with normal WBC and dilated renal collecting system, would appear more likely to be urologic in nature. will follow along.
--- NOTE | 2016-10-27 13:21 | Gastrointestinal Consultation ---
Gastrointestinal Consultation Date of Consultation: October 27, 2016 Attending Physician: Dr. Hardin Consulting Physician: Dr. Friedman Reason for Consultation: Abdominal pain History of Present Illness Patient is a 41 year old male patient of Dr. Harsh Ruiz with a hx of UC followed by Dr. Edouard. He failed medical management and underwent colectomy with ileostomy a few weeks ago at [facility]. Initially, he did well but yesterday, presented to the ED with left flank pain, now moving down to the LLQ with radiation in to the scrotum. On arrival, CT and US with mild hydronephrosis and ureteral dilation. UA with microscopic blood. The patient is seen and examined while he is sitting on a chair at the bedside. He is awake, alert, oriented but diaphoretic and appears acutely ill, in severe discomfort, guarding/leaning forward in the chair. Past Medical/Surgical History Medical Problems: (1) Abdominal pain Status: Acute (2) Acute renal failure Status: Acute (3) GI bleed Status: Acute (4) Intractable pain Status: Acute (5) Left flank pain Status: Acute (6) Nausea vomiting and diarrhea Status: Acute (7) Renal colic Status: Acute Past Medical History: 1. Kidney stones 2. UC Past Surgical History: 1. Colectomy at [facility]. 2. Multiple prior colonoscopies. Family History Diabetes mellitus FHx: cancer Social History Smoking Status: Never Smoker Alcohol Use: occasionally Drug Use: none Marital Status: Housing Status: lives with family Occupation Status: employed Allergies Coded Allergies: Mercaptopurine (Verified Allergy, Severe, SUPPRESSED IMMUNITY, 09/12/16) Morphine (Verified Adverse Reaction, Mild, HEADACHE, 09/12/16) Prochlorperazine (Verified Adverse Reaction, Mild, DYSTONIC, 09/12/16) NSAIDs (Verified Adverse Reaction, Unknown, SEE BELOW, 09/12/16) DOES NOT TAKE D/T COLITIS Current Medications Home Meds and Scripts Medications Dose Route/Sig Max Daily Dose Days Date Category Ativan (Lorazepam) 1 Mg Tab 1 Mg PO TID PRN 10/26/16 Reported Roxicodone Ir (Oxycodone HCl) 5 Mg Tab 10 Mg PO Q6H PRN 10/26/16 Reported Multivitamin (Multivitamins) Tab 1 Tab PO DAILY 10/26/16 Reported Lovenox (Enoxaparin Sodium) 40 Mg/0.4 Ml Inj 40 Mg SQ DAILY 10/26/16 Reported Acetaminophen Extra Stren (Acetaminophen) 500 Mg Tab 1,000 Mg PO Q6H PRN 10/26/16 Reported Zofran (Ondansetron Hcl) 8 Mg Tab 8 Mg PO Q8 PRN 09/10/16 Reported Cymbalta (Duloxetine Hcl) 60 Mg Cap 60 Mg PO QAM 07/15/16 Reported Vitamin B12 (Cyanocobalamin) 1,000 Mcg Tab 1,000 Mcg PO QAM 04/08/16 Reported Vitamin D (Cholecalciferol) 1,000 Unit Tab 1,000 Units PO QAM 04/08/16 Reported Vitamin C (Ascorbic Acid) 500 Mg Tab 500 Mg PO QAM 04/08/16 Reported Ambien (Zolpidem Tartrate) 5 Mg Tab 5 Mg PO HS PRN 11/29/15 Reported Review of Systems Constitutional: No chills, No fever, No sweats, No weakness, No weight loss Eyes: No eye pain, No redness ENT: No pain on swallowing, No sore throat, No trouble swallowing Respiratory: No cough, No dyspnea on exertion, No shortness of breath, No wheezing Cardiac: No chest pain, No edema, No palpitations Abdomen: + nausea, + pain, + see HPI Neuro: No balance problems, No memory loss, No numbness/tingling, No vertigo, No weakness Psych: No anxiety, No depression symptoms, No insomnia Heme: No abnormal bleeding/bruising, No night sweats Endo: No excessive thirst, No excessive urination Skin: No itch, No jaundice, No new/changing skin lesions, No rash Physical Exam Date Time Temp Pulse Resp B/P Pulse Ox O2 Delivery O2 Flow Rate FiO2 10/27/16 08:00 100 Room Air 10/27/16 07:30 36.9 82 20 126/83 100 Room Air 10/27/16 04:00 77 115/78 10/27/16 00:19 37.2 94 20 109/71 100 Room Air 20.0 10/26/16 23:59 Room Air 10/26/16 20:00 Room Air 10/26/16 19:45 114/74 10/26/16 17:04 69 117/78 10/26/16 16:00 99 Room Air 10/26/16 14:59 69 105/62 10/26/16 14:54 36.9 62 18 94/60 99 Room Air General Appearance: + severe distress Eyes: normal inspection, EOMI Neck: supple, no adenopathy, thyroid normal, no JVD Respiratory/Chest: chest non-tender, lungs clear, normal breath sounds, no accessory muscle use Cardiovascular: regular rate, rhythm, no JVD, no murmur Abdomen: normal bowel sounds, soft, no organomegaly, + guarding, + tenderness ( exquisitly tender in the LLQ) Extremities: normal inspection, no pedal edema, normal capillary refill Neurologic/Psych: alert, normal mood/affect, oriented x 3 Skin: normal color, no jaundice, warm/dry, no rash Laboratory Results Last 24 Hours Test 10/26/16 13:49 10/27/16 07:18 Prothrombin Time 10.7 SECONDS Prothromb Time International Ratio 1.0 Activated Partial Thromboplast Time 27.4 SECONDS Partial Thromboplastin Ratio 1.1 White Blood Count 8.40 K/uL Red Blood Count 3.88 M/uL Hemoglobin 8.6 g/dL Hematocrit 28.9 % Mean Corpuscular Volume 74.5 fL Mean Corpuscular Hemoglobin 22.2 pg Mean Corpuscular Hemoglobin Concent 29.8 g/dl Platelet Count 139 K/uL Mean Platelet Volume 7.7 fL Neutrophils (%) (Auto) 78.3 % Lymphocytes (%) (Auto) 14.3 % Monocytes (%) (Auto) 6.7 % Eosinophils (%) (Auto) 0.5 % Basophils (%) (Auto) 0.1 % Neutrophils # (Auto) 6.58 K/uL Lymphocytes # (Auto) 1.20 K/uL Monocytes # (Auto) 0.56 K/uL Eosinophils # (Auto) 0.04 K/uL Basophils # (Auto) 0.01 K/uL RDW Standard Deviation 45.3 fL RDW Coefficient of Variation 16.5 % Immature Granulocyte % (Auto) 0.1 % Immature Granulocyte # (Auto) 0.01 K/uL Tear Drop Cells OCCASIONAL Sodium Level 140 mmol/L Potassium Level 3.9 mmol/L Chloride Level 106 mmol/L Carbon Dioxide Level 25 mmol/L Anion Gap 9.0 mmol/L Blood Urea Nitrogen 11 mg/dl Creatinine 1.90 mg/dl Est Creatinine Clear Calc Drug Dose 57.2 ml/min Estimated GFR () 49.0 Estimated GFR (Non- 42.2 BUN/Creatinine Ratio 6.0 Random Glucose 107 mg/dl Calcium Level 8.9 mg/dl Magnesium Level 1.9 mg/dl Total Bilirubin 0.5 mg/dl Aspartate Amino Transf (AST/SGOT) 17 U/L Alanine Aminotransferase (ALT/SGPT) 31 U/L Alkaline Phosphatase 62 U/L Total Protein 7.0 gm/dl Albumin 3.5 gm/dl Globulin 3.5 gm/dl Albumin/Globulin Ratio 1.0 Impression Patient is a 41 year old male who is S/P recent colectomy for UC, now with severe LLQ abdominal pain. Differentials considered are kidney stones, pyelonephritis, ischemic bowel. Plan The CT films were reviewed by Dr. Friedman with radiology. Viewing CT films, in the context of his symptoms, this is very suspicious for ischemic bowel. Discussed with surgery. Recommend transfer to [facility]. -I have seen, examined, and agree with the exam and findings as above as Ms. 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 -Spoke with Dr. Sotelo at [place] who requested to hold course, CT scan with IV contrast if Cr improves and symptoms persist. -Continue with IV pain control, if pain persists or clinical decompensation, then please arrange tx to [place].
[2016-10-27] MEDS: SODIUM CHLORIDE 0.9% 1000ML 1,000 ML IV SCH (13:25)
--- NOTE | 2016-10-27 13:30 | Urology Consultation ---
History General Date of Service: October 27, 2016. Chief Complaint: Left flank pain Primary Care Physician: Oscar Ruiz M.D. Pt seen a urologist before?: Yes If yes, why?: Myself, 3 years ago for pain and hematuria History of Present Illness Poorly compliant 41 yo male, last seen by myself 3 years ago (Jul 2013) for back pain and hematuria, currently admitted for L flank pain which the patient characterizes as colicky in origin. He feels this is consistent with his previous kidney stone pain. His inpatient and outpatient chart is reviewed, CT scan images also personally reviewed and reports noted of renal imaging in [facility] system going back to 2011. He has also had an outside CT scan in [place] which is scanned in his outpatient chart. None of his imaging studies have demonstrated any documented stones in the past, borderline hydro on either side being sometimes noted. In addition he has never brought in a stone for analysis and notes that they have always been "tiny." Patient seems comfortable enough on entering the room but complains of mounting pain and anxiety as discussion progresses. consultation is being sought out to r/o a renal cause to his pain. His current negative renal US (for hydro, stone or thrombosis) and his CT scan as noted below are reviewed. He had previously been scheduled for an office cystoscopy to complete his hematuria workup but never showed for follow- up with our service of any kind. 1. Mild left collecting system dilatation. No ureteral calculi identified. This finding is nonspecific but could be related to a recently passed calculus or less likely an infectious process. 2. Status post subtotal colectomy. No bowel obstruction. Small to moderate abdominal and pelvic ascites. 3. Upper omental infiltration. This is nonspecific in the early postoperative setting although an omental infarct could have this imaging appearance. Imaging Imaging: CT Laboratory Last 24 Hours Test 10/26/16 13:49 10/27/16 07:18 Prothrombin Time 10.7 SECONDS Prothromb Time International Ratio 1.0 Activated Partial Thromboplast Time 27.4 SECONDS Partial Thromboplastin Ratio 1.1 White Blood Count 8.40 K/uL Red Blood Count 3.88 M/uL Hemoglobin 8.6 g/dL Hematocrit 28.9 % Mean Corpuscular Volume 74.5 fL Mean Corpuscular Hemoglobin 22.2 pg Mean Corpuscular Hemoglobin Concent 29.8 g/dl Platelet Count 139 K/uL Mean Platelet Volume 7.7 fL Neutrophils (%) (Auto) 78.3 % Lymphocytes (%) (Auto) 14.3 % Monocytes (%) (Auto) 6.7 % Eosinophils (%) (Auto) 0.5 % Basophils (%) (Auto) 0.1 % Neutrophils # (Auto) 6.58 K/uL Lymphocytes # (Auto) 1.20 K/uL Monocytes # (Auto) 0.56 K/uL Eosinophils # (Auto) 0.04 K/uL Basophils # (Auto) 0.01 K/uL RDW Standard Deviation 45.3 fL RDW Coefficient of Variation 16.5 % Immature Granulocyte % (Auto) 0.1 % Immature Granulocyte # (Auto) 0.01 K/uL Tear Drop Cells OCCASIONAL Sodium Level 140 mmol/L Potassium Level 3.9 mmol/L Chloride Level 106 mmol/L Carbon Dioxide Level 25 mmol/L Anion Gap 9.0 mmol/L Blood Urea Nitrogen 11 mg/dl Creatinine 1.90 mg/dl Est Creatinine Clear Calc Drug Dose 57.2 ml/min Estimated GFR () 49.0 Estimated GFR (Non- 42.2 BUN/Creatinine Ratio 6.0 Random Glucose 107 mg/dl Calcium Level 8.9 mg/dl Magnesium Level 1.9 mg/dl Total Bilirubin 0.5 mg/dl Aspartate Amino Transf (AST/SGOT) 17 U/L Alanine Aminotransferase (ALT/SGPT) 31 U/L Alkaline Phosphatase 62 U/L Total Protein 7.0 gm/dl Albumin 3.5 gm/dl Globulin 3.5 gm/dl Albumin/Globulin Ratio 1.0 Problem List Medical Problems: (1) Abdominal pain Status: Acute (2) Acute renal failure Status: Acute (3) GI bleed Status: Acute (4) Intractable pain Status: Acute (5) Left flank pain Status: Acute (6) Nausea vomiting and diarrhea Status: Acute (7) Renal colic Status: Acute Past History anxiety, depression, seasonal allergies, ulcerative colitis, other (Chronic abdominal and back pain, history of C. Diff colitis, chronic headaches) Past Surgical History: appendectomy, colectomy, colostomy, orthopedic surgery ( knee arthroscopy, wrist surgery), other (lipoma excision, rotator cuff surgery) Family History Diabetes mellitus FHx: cancer Prostate cancer in father, dyslipidemia in sibling Social History Hx Tobacco Use In Past Year?: No Smoking: non-smoker Alcohol: other (denies) Marital status: Housing status: lives with significant other Occupation status: employed Immunizations History of Influenza Vaccine: No History of Tetanus Vaccine?: Yes History of Pneumococcal: No History of Hepatitis B Vaccine: No Allergies Coded Allergies: Mercaptopurine (Verified Allergy, Severe, SUPPRESSED IMMUNITY, 09/12/16) Morphine (Verified Adverse Reaction, Mild, HEADACHE, 09/12/16) Prochlorperazine (Verified Adverse Reaction, Mild, DYSTONIC, 09/12/16) NSAIDs (Verified Adverse Reaction, Unknown, SEE BELOW, 09/12/16) DOES NOT TAKE D/T COLITIS Medications Home Medications: Home Meds and Scripts Medications Dose Route/Sig Max Daily Dose Days Date Category Ativan (Lorazepam) 1 Mg Tab 1 Mg PO TID PRN 10/26/16 Reported Roxicodone Ir (Oxycodone HCl) 5 Mg Tab 10 Mg PO Q6H PRN 10/26/16 Reported Multivitamin (Multivitamins) Tab 1 Tab PO DAILY 10/26/16 Reported Lovenox (Enoxaparin Sodium) 40 Mg/0.4 Ml Inj 40 Mg SQ DAILY 10/26/16 Reported Acetaminophen Extra Stren (Acetaminophen) 500 Mg Tab 1,000 Mg PO Q6H PRN 10/26/16 Reported Zofran (Ondansetron Hcl) 8 Mg Tab 8 Mg PO Q8 PRN 09/10/16 Reported Cymbalta (Duloxetine Hcl) 60 Mg Cap 60 Mg PO QAM 07/15/16 Reported Vitamin B12 (Cyanocobalamin) 1,000 Mcg Tab 1,000 Mcg PO QAM 04/08/16 Reported Vitamin D (Cholecalciferol) 1,000 Unit Tab 1,000 Units PO QAM 04/08/16 Reported Vitamin C (Ascorbic Acid) 500 Mg Tab 500 Mg PO QAM 04/08/16 Reported Ambien (Zolpidem Tartrate) 5 Mg Tab 5 Mg PO HS PRN 11/29/15 Reported Inpatient Medications: Current Inpatient Medications Medications (Trade) Dose Ordered Sig/Luis Carlos Route Start Time Stop Time Status Last Admin Dose Admin Ondansetron HCl 6 mg/Dextrose 53 ml @ 200 mls/hr Q6H PRN IV 10/26/16 10:15 11/25/16 10:14 10/27/16 08:38 200 MLS/HR Sodium Chloride (1/2 Nss 1000ml) 1,000 ml @ 150 mls/hr Q6H40M IV 10/26/16 13:15 11/25/16 13:14 10/27/16 08:04 150 MLS/HR Duloxetine HCl (Cymbalta Cap) 60 mg QAM PO 10/27/16 09:00 11/26/16 08:59 10/27/16 08:04 60 MG Lorazepam (Ativan Tab) 1 mg TID PRN PO 10/26/16 10:15 11/25/16 10:14 Multivitamins (Multivitamin Tab) 1 tab DAILY PO 10/27/16 09:00 11/26/16 08:59 10/27/16 08:04 1 TAB Zolpidem Tartrate (Ambien Tab) 5 mg HS PRN PO 10/26/16 10:15 11/25/16 10:14 10/26/16 23:16 5 MG Cyanocobalamin (Vitamin B-12 Tab) 1,000 mcg QAM PO 10/27/16 09:00 11/26/16 08:59 10/27/16 08:04 1,000 MCG Heparin Sodium (Porcine) (Heparin Sq 5000 Unit/0.5ml) 5,000 unit Q8 SQ 10/26/16 15:00 11/25/16 14:59 10/27/16 05:49 5,000 UNIT Miscellaneous (Iv Fluids Completed) 1 ea PRN PRN N/A 10/26/16 13:15 10/26/17 13:14 Hydromorphone HCl (Dilaudid Inj) 1 mg Q2H PRN IV 10/26/16 15:30 11/09/16 15:29 10/27/16 00:14 1 MG Hydromorphone HCl (Dilaudid Inj) 2 mg Q2H PRN IV 10/26/16 15:30 11/09/16 15:29 10/27/16 12:24 2 MG Naloxone HCl (Narcan Inj) 0.1 mg Q5M PRN IV 10/27/16 12:30 11/26/16 12:29 Hydromorphone HCl 25 mg 25 mg PRN PRN IV 10/27/16 12:30 11/10/16 12:29 Sodium Chloride (Nss 1000ml) 1,000 ml @ 15 mls/hr Q24H IV 10/27/16 12:26 11/26/16 12:25 Review of Systems Review of Systems Constitutional: No chills, No fever Eyes: No double vision, No eye pain Neurological: No seizures Endocrine: + tired/sluggish Gastrointestinal: + abdominal pain, No vomiting Cardiovascular: No irregular heartbeat Respiratory: No coughing up blood, No shortness of breath Skin: No boils, No dry skin Musculoskeletal: + back pain Ears / Nose / Throat: No hearing loss, No sinus Psychologic / Mental: + nervous, No trouble remembering Male : + see HPI Physical Exam Vital Signs: Vital Signs Past 12 Hours Date Time Temp Pulse Resp B/P Pulse Ox O2 Delivery O2 Flow Rate FiO2 10/27/16 08:00 100 Room Air 10/27/16 07:30 36.9 82 20 126/83 100 Room Air 10/27/16 04:00 77 115/78 Physical Exam: General Appearance: + mild distress, + thin ENT: normal ENT inspection, hearing grossly normal Neck: supple, no adenopathy Respiratory/Chest: no respiratory distress, no accessory muscle use Cardiovascular: no JVD Gastrointestinal: Abdomen: pertinent finding (functional ostomy, ecchymosis on lower abdomen, ? heparin injection site) Bladder: normal bladder Renal: cva tenderness (severe tenderness on superficial touch to left flank , no percussion - out of proportion and not typical of renal pain / colic) Hernia: absent hernia Liver: normal liver Spleen: normal spleen Neurologic/Psychiatric: alert Skin: normal color Assessment & Plan Assessment & Plan A/P 41 yo male with L flank pain. Findings reviewed, care d/w hospitalist service. First of all, the patient since 2011 has no imaging study of his many CT scans, ultrasounds and plain films which has demonstrated a stone that I can find. Therefore, in my opinion, he has no confirmed history of stone disease. In addition his physical exam findings and imaging studies are not consistent with a renal source of his pain. For example, despite the minimal proximal ureteral fullness on the left, there is no perinephric inflammation or other expected sequelae of an obstructive or inflammatory renal process which would be expected to cause the patient's reported pain. If there is concern over a dynamic obstructive process , eg. a congenital UPJ obstruction, which seems relatively unlikely seen the stability of his imaging findings and the lack of significant hydronephrosis during episodes of pain, a Lasix renal scan to document a lack of obstruction could be done. However I would tend to doubt his system as the source of his current pain and would not expect him to improve with any surgical intervention. Continue management per primary service. Thank you for allowing us to participate in this patient's care. Please contact our service with any questions or concerns.
[2016-10-27] MEDS: HYDROmorphone HCL 0.5MG/ML 50 ML CASSETTE IV PRN ×2 (13:36→22:08)
[2016-10-27 15:13] VITALS: BP 132/79; PULSE 78; TEMP 37.4; O2SAT 99
--- NOTE | 2016-10-27 16:23 | Family Medicine Progress Note ---
Progress Note Date of Service October 27, 2016. Subjective Pt evaluation today including: conversation w/ patient, physical exam, chart review, lab review Pain: complains of severe left flank pain 40-year-old male with past medical history of ulcerative colitis status post total colectomy with colostomy done early September at [facility], history of renal calculus presented to the ER with complaints of left-sided flank pain which started about a day after arrival. Complained of excruciating left flank pain radiating to the groin, described as constant, more than 10/10 in severity and associated with nausea. Denied any hematuria, dysuria, passing stones, denied any BRBPR, blood in the colostomy bag. Constitutional: No chills, No fever Eyes: No worsening of vision Respiratory: No cough, No wheezing Cardiovascular: No chest pain Abdomen: + nausea, + pain (left flank pain), No diarrhea, No vomiting Musculoskeletal: No joint pain Male : No dysuria, No incontinence Neurologic: No memory loss Psychiatric: No depression symptoms Medications Current Inpatient Medications Medications (Trade) Dose Ordered Sig/Luis Carlos Route Start Time Stop Time Status Last Admin Dose Admin Ondansetron HCl 6 mg/Dextrose 53 ml @ 200 mls/hr Q6H PRN IV 10/26/16 10:15 11/25/16 10:14 10/27/16 08:38 200 MLS/HR Sodium Chloride (1/2 Nss 1000ml) 1,000 ml @ 150 mls/hr Q6H40M IV 10/26/16 13:15 11/25/16 13:14 10/27/16 16:14 150 MLS/HR Duloxetine HCl (Cymbalta Cap) 60 mg QAM PO 10/27/16 09:00 11/26/16 08:59 10/27/16 08:04 60 MG Lorazepam (Ativan Tab) 1 mg TID PRN PO 10/26/16 10:15 11/25/16 10:14 Multivitamins (Multivitamin Tab) 1 tab DAILY PO 10/27/16 09:00 11/26/16 08:59 10/27/16 08:04 1 TAB Zolpidem Tartrate (Ambien Tab) 5 mg HS PRN PO 10/26/16 10:15 11/25/16 10:14 10/26/16 23:16 5 MG Cyanocobalamin (Vitamin B-12 Tab) 1,000 mcg QAM PO 10/27/16 09:00 11/26/16 08:59 10/27/16 08:04 1,000 MCG Heparin Sodium (Porcine) (Heparin Sq 5000 Unit/0.5ml) 5,000 unit Q8 SQ 10/26/16 15:00 11/25/16 14:59 10/27/16 13:37 5,000 UNIT Miscellaneous (Iv Fluids Completed) 1 ea PRN PRN N/A 10/26/16 13:15 10/26/17 13:14 Hydromorphone HCl (Dilaudid Inj) 1 mg Q2H PRN IV 10/26/16 15:30 11/09/16 15:29 10/27/16 00:14 1 MG Hydromorphone HCl (Dilaudid Inj) 2 mg Q2H PRN IV 10/26/16 15:30 11/09/16 15:29 10/27/16 12:24 2 MG Naloxone HCl (Narcan Inj) 0.1 mg Q5M PRN IV 10/27/16 12:30 11/26/16 12:29 Hydromorphone HCl 25 mg 25 mg PRN PRN IV 10/27/16 12:30 11/10/16 12:29 10/27/16 13:36 25 MG Sodium Chloride (Nss 1000ml) 1,000 ml @ 15 mls/hr Q24H IV 10/27/16 12:26 11/26/16 12:25 10/27/16 13:25 15 MLS/HR Objective Vital Signs Date Time Temp Pulse Resp B/P Pulse Ox O2 Delivery O2 Flow Rate FiO2 10/27/16 15:13 37.4 78 20 132/79 99 Room Air 10/27/16 08:00 100 Room Air 10/27/16 07:30 36.9 82 20 126/83 100 Room Air 10/27/16 04:00 77 115/78 10/27/16 00:19 37.2 94 20 109/71 100 Room Air 20.0 10/26/16 23:59 Room Air 10/26/16 20:00 Room Air 10/26/16 19:45 114/74 10/26/16 17:04 69 117/78 Physical Exam General Appearance: WD/WN, + moderate distress Eyes: normal inspection ENT: normal ENT inspection, hearing grossly normal Neck: supple Respiratory/Chest: chest non-tender, lungs clear, normal breath sounds, no respiratory distress, no accessory muscle use Cardiovascular: regular rate, rhythm Abdomen: normal bowel sounds, soft, + tenderness (left flank and LLQ), + pertinent finding (colostomy ) Extremities: normal range of motion, non-tender, no pedal edema Neurologic/Psychiatric: alert, normal mood/affect, oriented x 3 Laboratory Results 10/27/16 07:18 Red Blood Count 3.88, Mean Corpuscular Volume 74.5, Mean Corpuscular Hemoglobin 22.2, Mean Corpuscular Hemoglobin Concent 29.8, Mean Platelet Volume 7.7, Neutrophils (%) (Auto) 78.3, Lymphocytes (%) (Auto) 14.3, Monocytes (%) (Auto) 6.7, Eosinophils (%) (Auto) 0.5, Basophils (%) (Auto) 0.1, Neutrophils # (Auto) 6.58, Lymphocytes # (Auto) 1.20, Monocytes # (Auto) 0.56, Eosinophils # (Auto) 0.04, Basophils # (Auto) 0.01 10/27/16 07:18 Test 10/27/16 07:18 White Blood Count 8.40 K/uL (4.8-10.8) Red Blood Count 3.88 M/uL (4.7-6.1) Hemoglobin 8.6 g/dL (14.0-18.0) Hematocrit 28.9 % (42-52) Mean Corpuscular Volume 74.5 fL (80-100) Mean Corpuscular Hemoglobin 22.2 pg (25-34) Mean Corpuscular Hemoglobin Concent 29.8 g/dl (32-36) Platelet Count 139 K/uL (130-400) Mean Platelet Volume 7.7 fL (7.4-10.4) Neutrophils (%) (Auto) 78.3 % Lymphocytes (%) (Auto) 14.3 % Monocytes (%) (Auto) 6.7 % Eosinophils (%) (Auto) 0.5 % Basophils (%) (Auto) 0.1 % Neutrophils # (Auto) 6.58 K/uL (1.4-6.5) Lymphocytes # (Auto) 1.20 K/uL (1.2-3.4) Monocytes # (Auto) 0.56 K/uL (0.11-0.59) Eosinophils # (Auto) 0.04 K/uL (0-0.5) Basophils # (Auto) 0.01 K/uL (0-0.2) RDW Standard Deviation 45.3 fL (36.4-46.3) RDW Coefficient of Variation 16.5 % (11.5-14.5) Immature Granulocyte % (Auto) 0.1 % Immature Granulocyte # (Auto) 0.01 K/uL (0.00-0.02) Tear Drop Cells OCCASIONAL Anion Gap 9.0 mmol/L (3-11) Est Creatinine Clear Calc Drug Dose 57.2 ml/min Estimated GFR () 49.0 Estimated GFR (Non- 42.2 BUN/Creatinine Ratio 6.0 (10-20) Calcium Level 8.9 mg/dl (8.5-10.1) Magnesium Level 1.9 mg/dl (1.8-2.4) Total Bilirubin 0.5 mg/dl (0.2-1) Aspartate Amino Transf (AST/SGOT) 17 U/L (15-37) Alanine Aminotransferase (ALT/SGPT) 31 U/L (12-78) Alkaline Phosphatase 62 U/L (45-117) Total Protein 7.0 gm/dl (6.4-8.2) Albumin 3.5 gm/dl (3.4-5.0) Globulin 3.5 gm/dl (2.5-4.0) Albumin/Globulin Ratio 1.0 (0.9-2) Assessment and Plan 40-year-old male with past medical history of ulcerative colitis status post total colectomy with colostomy done early September at [facility], history of renal calculus presented to the ER with complaints of left-sided flank pain which started about a day after arrival. Left-sided flank/abdominal pain: - CT abdomen and pelvis suggestive of dilatation of the collecting system but no renal calculi are identified. Upper omental infiltration. Small to moderate ascites - IV Dilaudid unable to control pain. - Extremely tender in flank/abdomen and diminished bowel sound - Consulted - GI, urology, surgery - Dilaudid [employer] started - Per urology - no concern of urinary stone considering negative imaging and negative urinalysis. - Contacted Dr. Chacon from [facility] - recommended CT scan with IV contrast after hydration considering elevated creatinine - Continue IVF and to have CT with IV contrast in am. ARIN: Creatinine at presentation 2, today at 1.9 - Baseline, around 1 - continue IV hydration - Avoid nephrotoxins - consult nephrology since doesn't seem prerenal. History of ulcerative colitis status post colectomy - Stable Anxiety/depression -Continue Cymbalta DVT prophylaxis: Heparin subcutaneous Full code Disposition- monitor and MedSurg Continued [facility] stay due to: inadequate oral pain control Resident Tracking Resident Involvement: Resident Care Provided Care Provided: Adult Hospital Medicine Reviewed: Pt Seen/Exam by Me History having extreme pain asking to have IV [employer] pump since unable to stay ahead of pain with IV meds Constitutional: denies: fever Respiratory: negative: short of breath Cardiovascular: denies chest pain General Appearance: moderate distress Respiratory: lungs clear, no respiratory distress Cardiovascular: regular rate, rhythm Gastrointestinal: soft, tenderness (across the whole abdomen and in flank), other (diminished bowel sounds) Neurologic/Psychiatric: alert, oriented x 3 Skin Characteristics: warm/dry Assessment/Plan I have reviewed the medical record and performed a history and physical examination of this patient today. I have discussed the case with Dr. Carrillo. The above note reflects my findings, conclusions, and recommendations.
--- NOTE | 2016-10-27 17:23 | Nephrology Consultation ---
Nephrology Consultation Date & Providers Date of Consultation: October 27, 2016. Primary Care Provider: Oscar Ruiz M.D. Referring Provider: Reason for Consultation Acute renal insufficiency History of Present Illness Mr. Jesús Cummins is a 41-year-old male with ulcerative colitis. He underwent subtotal colectomy with ileostomy placement at [facility] last month. The procedure was uncomplicated. Mr. Cummins reports uneventful post operative recovery. He had follow up with Dr. Sotelo was last week. Yesterday, Mr. Cummins experienced a sudden onset of severe left flank pain while resting in bed. The pain was stabbing and unremitting. There was tenderness in his back below the ribs which persists. He reported similar symptoms in November. In November, imaging revealed fullness of the left renal collecting system with microscopic hematuria. It was felt that a recently passed kidney stone was responsible for the symptoms. Symptoms resolved and he was discharged home. He has never seen a kidney stone and denies any other history of nephrolithiasis. He has a history of microscopic hematuria for which he was previously scheduled to undergo urologic intervention but unfortunately did not follow up. He took a couple of oxycodone at home which provided minimal initial relief. Pain has changed slightly in location. Intensity changes with time. There are no specific aggravating triggers to his symptoms. There is associated tenderness. There is no prior history of ARIN that he is aware of. Jesús reports that his appetite was normal prior to the onset of pain. He reports good fluid intake. He does not consume NSAIDs. He denies any fevers or chills. He denies any history of gross hematuria. He denies dysuria. Past Medical/Surgical History Medical: Ulcerative colitis; history of post concussive syndrome Surgical: Colectomy with ileostomy; appendectomy; arthroscopy Allergies Coded Allergies: Mercaptopurine (Verified Allergy, Severe, SUPPRESSED IMMUNITY, 09/12/16) Morphine (Verified Adverse Reaction, Mild, HEADACHE, 09/12/16) Prochlorperazine (Verified Adverse Reaction, Mild, DYSTONIC, 09/12/16) NSAIDs (Verified Adverse Reaction, Unknown, SEE BELOW, 09/12/16) DOES NOT TAKE D/T COLITIS Inpatient Medications Current Inpatient Medications Medications (Trade) Dose Ordered Sig/Luis Carlos Route Start Time Stop Time Status Last Admin Dose Admin Ondansetron HCl 6 mg/Dextrose 53 ml @ 200 mls/hr Q6H PRN IV 10/26/16 10:15 11/25/16 10:14 10/27/16 08:38 200 MLS/HR Sodium Chloride (1/2 Nss 1000ml) 1,000 ml @ 150 mls/hr Q6H40M IV 10/26/16 13:15 11/25/16 13:14 10/27/16 16:14 150 MLS/HR Duloxetine HCl (Cymbalta Cap) 60 mg QAM PO 10/27/16 09:00 11/26/16 08:59 10/27/16 08:04 60 MG Lorazepam (Ativan Tab) 1 mg TID PRN PO 10/26/16 10:15 11/25/16 10:14 Multivitamins (Multivitamin Tab) 1 tab DAILY PO 10/27/16 09:00 11/26/16 08:59 10/27/16 08:04 1 TAB Zolpidem Tartrate (Ambien Tab) 5 mg HS PRN PO 10/26/16 10:15 11/25/16 10:14 10/26/16 23:16 5 MG Cyanocobalamin (Vitamin B-12 Tab) 1,000 mcg QAM PO 10/27/16 09:00 11/26/16 08:59 10/27/16 08:04 1,000 MCG Heparin Sodium (Porcine) (Heparin Sq 5000 Unit/0.5ml) 5,000 unit Q8 SQ 10/26/16 15:00 11/25/16 14:59 10/27/16 13:37 5,000 UNIT Miscellaneous (Iv Fluids Completed) 1 ea PRN PRN N/A 10/26/16 13:15 10/26/17 13:14 Hydromorphone HCl (Dilaudid Inj) 1 mg Q2H PRN IV 10/26/16 15:30 11/09/16 15:29 10/27/16 00:14 1 MG Hydromorphone HCl (Dilaudid Inj) 2 mg Q2H PRN IV 10/26/16 15:30 11/09/16 15:29 10/27/16 12:24 2 MG Naloxone HCl (Narcan Inj) 0.1 mg Q5M PRN IV 10/27/16 12:30 11/26/16 12:29 Hydromorphone HCl 25 mg 25 mg PRN PRN IV 10/27/16 12:30 11/10/16 12:29 10/27/16 13:36 25 MG Sodium Chloride (Nss 1000ml) 1,000 ml @ 15 mls/hr Q24H IV 10/27/16 12:26 11/26/16 12:25 10/27/16 13:25 15 MLS/HR Family History Diabetes mellitus FHx: cancer Social History Smoking Status: Never Smoker Alcohol Use: occasionally Drug Use: none Marital Status: Housing Status: lives with significant other Occupation: employed Review of Systems Constitutional: No chills, No fever, No weight loss Abdomen: + pain, No diarrhea, No nausea, No vomiting Genitourinary - Male: No dysuria, No hematuria, No urinary frequency, No urinary hesitancy, No urinary incontinence, No urinary retention, No urinary urgency A complete review of systems was performed. Pertinent positives are noted above. All other systems are negative. Physical Exam Date Time Temp Pulse Resp B/P Pulse Ox O2 Delivery O2 Flow Rate FiO2 10/27/16 15:13 37.4 78 20 132/79 99 Room Air 10/27/16 08:00 100 Room Air 10/27/16 07:30 36.9 82 20 126/83 100 Room Air 10/27/16 04:00 77 115/78 10/27/16 00:19 37.2 94 20 109/71 100 Room Air 20.0 10/26/16 23:59 Room Air 10/26/16 20:00 Room Air 10/26/16 19:45 114/74 10/26/16 17:04 69 117/78 General Appearance: WD/WN, no apparent distress Head: normocephalic, atraumatic Eyes: normal inspection, sclerae normal ENT: normal ENT inspection, pharynx normal Neck: supple, no JVD Respiratory/Chest: lungs clear, no respiratory distress, no accessory muscle use Cardiovascular: regular rate, rhythm, no murmur Abdomen/GI: normal bowel sounds, soft, + pertinent finding (ostomy pink and patent with minimal liquid stool in bag; eccymotic bruise on left lower quadrant ) Back: + pertinent finding (tenderness below the ribs on the left, no paraspinal tenderness, no SI tenderness) Extremities/Musculoskelatal: normal inspection, no pedal edema Neurologic/Psych: alert, oriented x 3 Skin: normal color Laboratory Results Last 24 Hours Test 10/27/16 07:18 White Blood Count 8.40 K/uL Red Blood Count 3.88 M/uL Hemoglobin 8.6 g/dL Hematocrit 28.9 % Mean Corpuscular Volume 74.5 fL Mean Corpuscular Hemoglobin 22.2 pg Mean Corpuscular Hemoglobin Concent 29.8 g/dl Platelet Count 139 K/uL Mean Platelet Volume 7.7 fL Neutrophils (%) (Auto) 78.3 % Lymphocytes (%) (Auto) 14.3 % Monocytes (%) (Auto) 6.7 % Eosinophils (%) (Auto) 0.5 % Basophils (%) (Auto) 0.1 % Neutrophils # (Auto) 6.58 K/uL Lymphocytes # (Auto) 1.20 K/uL Monocytes # (Auto) 0.56 K/uL Eosinophils # (Auto) 0.04 K/uL Basophils # (Auto) 0.01 K/uL RDW Standard Deviation 45.3 fL RDW Coefficient of Variation 16.5 % Immature Granulocyte % (Auto) 0.1 % Immature Granulocyte # (Auto) 0.01 K/uL Tear Drop Cells OCCASIONAL Sodium Level 140 mmol/L Potassium Level 3.9 mmol/L Chloride Level 106 mmol/L Carbon Dioxide Level 25 mmol/L Anion Gap 9.0 mmol/L Blood Urea Nitrogen 11 mg/dl Creatinine 1.90 mg/dl Est Creatinine Clear Calc Drug Dose 57.2 ml/min Estimated GFR () 49.0 Estimated GFR (Non- 42.2 BUN/Creatinine Ratio 6.0 Random Glucose 107 mg/dl Calcium Level 8.9 mg/dl Magnesium Level 1.9 mg/dl Total Bilirubin 0.5 mg/dl Aspartate Amino Transf (AST/SGOT) 17 U/L Alanine Aminotransferase (ALT/SGPT) 31 U/L Alkaline Phosphatase 62 U/L Total Protein 7.0 gm/dl Albumin 3.5 gm/dl Globulin 3.5 gm/dl Albumin/Globulin Ratio 1.0 Impression (1) Acute renal insufficiency (2) Left flank pain (3) Microscopic hematuria (4) Left lower quadrant pain Mr. Jesús Cummins is a 41-year-old male with UC admitted with left sided flank and abdominal pain. Medical records and imaging studies including abdominal CT scan, renal ultrasound and renal artery duplex were reviewed. Baseline creatinine 1.0 mg/dL in June. He was admitted with ARIN and a serum creatinine of 2.0 mg/dL. He is non oliguric. Urine microscopy notable for 5- 10 RBC and 5-10 WBC/hpf. Renal ultrasound shows fullness of the left renal collecting system. Dr. Holland's consultation was reviewed providing a detailed account of the medical history. There is no definitive history of nephrolithiasis but a recently passed stone cannot be excluded. The etiology of ARIN remains unclear. At this time, volume status and blood pressure are appropriate. Medications are appropriate for renal function (note that Toradol was given on admission). Clinical presentation is not consistent with GN. I would suggest continued IVF and documentation of I/O's. Continue to monitor daily metabolic profile for renal recovery. Repeat UA/microscopy tomorrow AM. Medications are appropriately dosed for renal function. Avoid any additional NSAIDs. Recommendations -- Continue NS at 100-150 ml/hr -- Repeat UA/micro and renal panel tomorrow AM -- Avoid NSAIDs -- Document I/O's -- Follow up with urology regarding history of microscopic hematuria
[2016-10-27 19:42] VITALS: BP 106/68; PULSE 96; TEMP 37.4; O2SAT 98
[2016-10-27] MEDS: ZOLPIDEM TARTRATE 5 MG TAB PO PRN (22:28)
[2016-10-28] VITALS (8 sets, daily range): BP systolic 89–118; BP diastolic 52–78; PULSE 103–114; TEMP 37–37.7; O2SAT 93–98
[2016-10-28] MEDS: SODIUM CHLORIDE 0.45% 1000ML 1,000 ML IV SCH ×3 (05:07→18:42)
[2016-10-28] MEDS: HEPARIN SOD 5000 UNIT/0.5 ML CARP SQ SCH ×3 (05:08→22:18)
[2016-10-28] MEDS: ONDANSETRON INJ 6 MG in DEXTROSE 5% 50ML 50 ML IV PRN (05:21)
[2016-10-28 08:29] LABS: HEMATOCRIT 30.7 % (42-52); MEAN CELL VOLUME 72.6 fL (80-100); MEAN CORPUSCULAR HEMOGLOBIN 22.2 pg (25-34); MEAN CORPUSCULAR HGB CONC 30.6 g/dl (32-36); MEAN PLATELET VOLUME 7.9 fL (7.4-10.4); PLATELET COUNT 199 K/uL (130-400); RED BLOOD COUNT 4.23 M/uL (4.7-6.1)
[2016-10-28 09:00] LABS: CALCIUM 9.1 mg/dl (8.5-10.1); CREATININE 1.7 mg/dl (0.60-1.40); POTASSIUM 3.9 mmol/L (3.5-5.1)
[2016-10-28] MEDS: DULOXETINE HCL 60 MG CAP PO SCH (09:33)
[2016-10-28] MEDS: MULTIVITAMIN TAB PO SCH (09:33)
[2016-10-28] MEDS: CYANOCOBALAMIN 500 MCG TAB (VIT B-12) PO SCH (09:33)
[2016-10-28] MEDS: HYDROmorphone HCL 0.5MG/ML 50 ML CASSETTE IV PRN (09:33)
[2016-10-28] MEDS ORDERED: OPTIRAY 320 IV PRN (10:00)
--- NOTE | 2016-10-28 10:24 | Gastroenterology Progress Note ---
Progress Note Date of Service: October 28, 2016 Subjective Pt evaluation today including: conversation w/ patient, physical exam, chart review, lab review, review of studies, review of inpatient medication list Mr. Cummins is a 41 yr old male admitted with abdominal pain 3 weeks after colectomy and ileostomy for UC at [facility]. Pt awake, alert. Today on [employer] with slight improvement in the abdominal pain. Labs: new mild leukocytosis today with WBC 12.9; BUN was 2 on arrival now 1.7. Review of Systems Constitutional: + fatigue, + sweats, No chills, No fever, No weakness Respiratory: No cough Cardiac: No chest pain Abdomen: + pain, No GI bleeding, No acolic stools, No constipation, No diarrhea , No dysphagia, No jaundice, No nausea, No odynophagia, No vomiting Male : No dysuria Neuro: No memory loss Psych: No depression symptoms Heme: No abnormal bleeding/bruising Endo: + fatigue Skin: No color change, No jaundice, No rash Medications Current Inpatient Medications Medications (Trade) Dose Ordered Sig/Luis Carlos Route Start Time Stop Time Status Last Admin Dose Admin Ondansetron HCl 6 mg/Dextrose 53 ml @ 200 mls/hr Q6H PRN IV 10/26/16 10:15 11/25/16 10:14 10/28/16 05:21 200 MLS/HR Sodium Chloride (1/2 Nss 1000ml) 1,000 ml @ 150 mls/hr Q6H40M IV 10/26/16 13:15 11/25/16 13:14 10/28/16 05:07 150 MLS/HR Duloxetine HCl (Cymbalta Cap) 60 mg QAM PO 10/27/16 09:00 11/26/16 08:59 10/28/16 09:33 60 MG Lorazepam (Ativan Tab) 1 mg TID PRN PO 10/26/16 10:15 11/25/16 10:14 Multivitamins (Multivitamin Tab) 1 tab DAILY PO 10/27/16 09:00 11/26/16 08:59 10/28/16 09:33 1 TAB Zolpidem Tartrate (Ambien Tab) 5 mg HS PRN PO 10/26/16 10:15 11/25/16 10:14 10/27/16 22:28 5 MG Cyanocobalamin (Vitamin B-12 Tab) 1,000 mcg QAM PO 10/27/16 09:00 11/26/16 08:59 10/28/16 09:33 1,000 MCG Heparin Sodium (Porcine) (Heparin Sq 5000 Unit/0.5ml) 5,000 unit Q8 SQ 10/26/16 15:00 11/25/16 14:59 10/28/16 05:08 5,000 UNIT Miscellaneous (Iv Fluids Completed) 1 ea PRN PRN N/A 10/26/16 13:15 10/26/17 13:14 Hydromorphone HCl (Dilaudid Inj) 1 mg Q2H PRN IV 10/26/16 15:30 11/09/16 15:29 10/27/16 00:14 1 MG Hydromorphone HCl (Dilaudid Inj) 2 mg Q2H PRN IV 10/26/16 15:30 11/09/16 15:29 10/27/16 12:24 2 MG Naloxone HCl (Narcan Inj) 0.1 mg Q5M PRN IV 10/27/16 12:30 11/26/16 12:29 Hydromorphone HCl 25 mg 25 mg PRN PRN IV 10/27/16 12:30 11/10/16 12:29 10/28/16 09:33 25 MG Sodium Chloride (Nss 1000ml) 1,000 ml @ 15 mls/hr Q24H IV 10/27/16 12:26 11/26/16 12:25 10/27/16 13:25 15 MLS/HR Ioversol (Optiray 320) 125 ml UD PRN IV 10/28/16 10:00 11/01/16 09:59 UNV Objective Vital Signs Date Time Temp Pulse Resp B/P Pulse Ox O2 Delivery O2 Flow Rate FiO2 10/28/16 08:00 Room Air 10/28/16 07:27 37.3 112 16 118/78 94 Room Air 10/28/16 04:04 37.5 104 16 110/70 94 Room Air 10/28/16 02:21 37.3 10/28/16 00:00 37.7 103 20 109/70 96 Room Air 10/28/16 00:00 Room Air 10/27/16 20:00 Room Air 10/27/16 19:42 37.4 96 18 106/68 98 Room Air 10/27/16 16:00 Room Air 10/27/16 15:13 37.4 78 20 132/79 99 Room Air Physical Exam General Appearance: no apparent distress ENT: TMs normal Neck: no JVD Respiratory/Chest: lungs clear Cardiovascular: regular rate, rhythm, no JVD, no murmur Abdomen: soft, + tenderness (exquisitely over entire abdomen, worse in both lower quadrants) Neurologic/Psych: alert, normal mood/affect, oriented x 3 Skin: no jaundice Laboratory Results Last 24 Hours Test 10/28/16 08:10 White Blood Count 12.90 K/uL Red Blood Count 4.23 M/uL Hemoglobin 9.4 g/dL Hematocrit 30.7 % Mean Corpuscular Volume 72.6 fL Mean Corpuscular Hemoglobin 22.2 pg Mean Corpuscular Hemoglobin Concent 30.6 g/dl RDW Standard Deviation 45.2 fL RDW Coefficient of Variation 16.9 % Platelet Count 199 K/uL Mean Platelet Volume 7.9 fL Sodium Level 135 mmol/L Potassium Level 3.9 mmol/L Chloride Level 100 mmol/L Carbon Dioxide Level 24 mmol/L Anion Gap 11.0 mmol/L Blood Urea Nitrogen 10 mg/dl Creatinine 1.70 mg/dl Est Creatinine Clear Calc Drug Dose 63.9 ml/min Estimated GFR () 56.0 Estimated GFR (Non- 48.3 BUN/Creatinine Ratio 6.0 Random Glucose 108 mg/dl Calcium Level 9.1 mg/dl Assessment and Plan Mr. Cummins is a 41 yr old male with abdominal pain S/P colectomy. Differentials are omental infarct, mesenteric clot, Plan: 1. Plan to order CT with IV contrast to r/o mesenteric clot/ischemia when creatinine further improves. 2. Will continue to watch very carefully. Will continue to discuss with Dr. Smart his surgeon from [facility] and Dr. Weston who completed a consult and is following from the surgical service here. Will continue to discuss timing of CT with IV contrast in light of elevated creatinine to determine best timing for the CT with contrast, I have seen, examined, and agree with the plan as outlined by GEOFF Roberts -mildly improved -very concerned that has inflammatory process in the abdomen ? infarcted omental , left kidney process given degree of thickening of ureter, not sure has pancreatitis given normal biochemical profile -Discuss with Urology and Colorectal surgery in [place], but given symptoms and post surgery will need tx to [place]
--- NOTE | 2016-10-28 10:24 | Nephrology Progress Note ---
Nephrology Progress Note Date of Service October 28, 2016. Chief Complaint Acute renal insufficiency Subjective No acute events overnight. Mr. Cummins was ambulating in the carlos this morning. Reports continued persistent abdominal and flank pain. Appetite fair. No hematuria. No fevers or chills. Voiding urine without difficulty. Review of Systems A complete review of systems was performed. Pertinent positives are noted above. All other systems are negative. Vital Signs Last 8 Hrs Date Time Temp Pulse Resp B/P Pulse Ox O2 Delivery O2 Flow Rate FiO2 10/28/16 08:00 Room Air 10/28/16 07:27 37.3 112 16 118/78 94 Room Air 10/28/16 04:04 37.5 104 16 110/70 94 Room Air 10/28/16 02:21 37.3 I & O 24-Hour Column 10/28/16 07:59 Intake Total 4517 ml Output Total 2950 ml Balance 1567 ml Last Recorded Weight Weight (Kilograms): 80.600 Physical Exam General Appearance: WD/WN, no apparent distress Head: normocephalic, atraumatic Eyes: normal inspection, sclerae normal ENT: normal ENT inspection, pharynx normal Neck: supple, no JVD Respiratory/Chest: lungs clear, no respiratory distress, no accessory muscle use Cardiovascular: regular rate, rhythm, no gallop Abdomen/GI: non tender, soft Extremities/Musculoskelatal: normal inspection, no pedal edema Neurologic/Psych: alert, oriented x 3 Family History Diabetes mellitus FHx: cancer Social History Smoking Status: Never smoker Alcohol Use: occasionally Drug Use: none Marital Status: Housing Status: lives with significant other Occupation: employed Laboratory Results Past 24 Hours 10/28/16 08:10 10/28/16 08:10 Test 10/28/16 08:10 10/28/16 10:13 Red Blood Count 4.23 M/uL (4.7-6.1) Mean Corpuscular Volume 72.6 fL (80-100) Mean Corpuscular Hemoglobin 22.2 pg (25-34) Mean Corpuscular Hemoglobin Concent 30.6 g/dl (32-36) RDW Standard Deviation 45.2 fL (36.4-46.3) RDW Coefficient of Variation 16.9 % (11.5-14.5) Mean Platelet Volume 7.9 fL (7.4-10.4) Anion Gap 11.0 mmol/L (3-11) Est Creatinine Clear Calc Drug Dose 63.9 ml/min Estimated GFR () 56.0 Estimated GFR (Non- 48.3 BUN/Creatinine Ratio 6.0 (10-20) Calcium Level 9.1 mg/dl (8.5-10.1) Allergies Coded Allergies: Mercaptopurine (Verified Allergy, Severe, SUPPRESSED IMMUNITY, 09/12/16) Morphine (Verified Adverse Reaction, Mild, HEADACHE, 09/12/16) Prochlorperazine (Verified Adverse Reaction, Mild, DYSTONIC, 09/12/16) NSAIDs (Verified Adverse Reaction, Unknown, SEE BELOW, 09/12/16) DOES NOT TAKE D/T COLITIS Medications Current Inpatient Medications Medications (Trade) Dose Ordered Sig/Luis Carlos Route Start Time Stop Time Status Last Admin Dose Admin Ondansetron HCl 6 mg/Dextrose 53 ml @ 200 mls/hr Q6H PRN IV 10/26/16 10:15 11/25/16 10:14 10/28/16 05:21 200 MLS/HR Sodium Chloride (1/2 Nss 1000ml) 1,000 ml @ 150 mls/hr Q6H40M IV 10/26/16 13:15 11/25/16 13:14 10/28/16 05:07 150 MLS/HR Duloxetine HCl (Cymbalta Cap) 60 mg QAM PO 10/27/16 09:00 11/26/16 08:59 10/28/16 09:33 60 MG Lorazepam (Ativan Tab) 1 mg TID PRN PO 10/26/16 10:15 11/25/16 10:14 Multivitamins (Multivitamin Tab) 1 tab DAILY PO 10/27/16 09:00 11/26/16 08:59 10/28/16 09:33 1 TAB Zolpidem Tartrate (Ambien Tab) 5 mg HS PRN PO 10/26/16 10:15 11/25/16 10:14 10/27/16 22:28 5 MG Cyanocobalamin (Vitamin B-12 Tab) 1,000 mcg QAM PO 10/27/16 09:00 11/26/16 08:59 10/28/16 09:33 1,000 MCG Heparin Sodium (Porcine) (Heparin Sq 5000 Unit/0.5ml) 5,000 unit Q8 SQ 10/26/16 15:00 11/25/16 14:59 10/28/16 05:08 5,000 UNIT Miscellaneous (Iv Fluids Completed) 1 ea PRN PRN N/A 10/26/16 13:15 10/26/17 13:14 Hydromorphone HCl (Dilaudid Inj) 1 mg Q2H PRN IV 10/26/16 15:30 11/09/16 15:29 10/27/16 00:14 1 MG Hydromorphone HCl (Dilaudid Inj) 2 mg Q2H PRN IV 10/26/16 15:30 11/09/16 15:29 10/27/16 12:24 2 MG Naloxone HCl (Narcan Inj) 0.1 mg Q5M PRN IV 10/27/16 12:30 11/26/16 12:29 Hydromorphone HCl 25 mg 25 mg PRN PRN IV 10/27/16 12:30 11/10/16 12:29 10/28/16 09:33 25 MG Sodium Chloride (Nss 1000ml) 1,000 ml @ 15 mls/hr Q24H IV 10/27/16 12:26 11/26/16 12:25 10/27/16 13:25 15 MLS/HR Ioversol (Optiray 320) 125 ml UD PRN IV 10/28/16 10:00 11/01/16 09:59 UNV Impression (1) Acute renal insufficiency (2) Left flank pain (3) Microscopic hematuria (4) Left lower quadrant pain Mr. Jesús Cummins is a 41-year-old male with UC admitted with left sided flank and abdominal pain. He presented with ARIN of unclear etiology. Baseline creatinine 1.0 mg/dL in June. He was admitted with ARIN and a serum creatinine of 2.0 mg/dL. Creatinine was 1.3-.14 when discharged from [facility] in April 2017. He is non oliguric. Urine microscopy negative. Renal ultrasound shows fullness of the left renal collecting system. It is very unlikely that symptoms are related to kidney stone disease. At this time, volume status and blood pressure are appropriate. Medications are appropriate for renal function (note that Toradol was given on admission). Creatinine improving and volume status acceptable. Given the need to exclude omental infarct or etiology such as SMV thrombosis, it is reasonable to obtain CT of abdomin with IV contrast today. Continue IVF pending CT. Continue to monitor daily metabolic profile for renal recovery. Repeat UA/microscopy pending. Medications are appropriately dosed for renal function. Avoid any additional NSAIDs. Plan of care discussed with Dr. Friedman and Dr. Hardin, Recommendations -- Continue NS at 100-150 ml/hr -- Repeat UA/micro pending -- Monitor metabolic profile daily -- Avoid NSAIDs -- Document I/O's -- Obtain abdominal CT with contrast
--- NOTE | 2016-10-28 10:37 | Surgery Progress Note ---
Surgery Progress Note Date of Service October 28, 2016. Subjective pt continues to have pain...perhaps slightly better than when he came in and he was able to get some sleep last night, however he did have a low grade temp last night. his pain in his flank/back has resolved but he continues to have rather severe lower/mid abdominal pain. comes in waves. only has nausea when the pain comes. Objective Vital Signs: Date Time Temp Pulse Resp B/P Pulse Ox O2 Delivery O2 Flow Rate FiO2 10/28/16 08:00 Room Air 10/28/16 07:27 37.3 112 16 118/78 94 Room Air 10/28/16 04:04 37.5 104 16 110/70 94 Room Air 10/28/16 02:21 37.3 10/28/16 00:00 37.7 103 20 109/70 96 Room Air 10/28/16 00:00 Room Air 10/27/16 20:00 Room Air 10/27/16 19:42 37.4 96 18 106/68 98 Room Air 10/27/16 16:00 Room Air 10/27/16 15:13 37.4 78 20 132/79 99 Room Air General Appearance: + mild distress Neck: supple Respiratory/Chest: no respiratory distress, no accessory muscle use Abdomen: + pertinent finding (pt refusing exam secondary to pain. ileostomy nice and pink and functioning. no sign of ischemia. abdomen not distended. ) Laboratory Results: Results Past 24 Hours Test 10/28/16 08:10 10/28/16 10:13 10/28/16 10:25 Range/Units White Blood Count 12.90 4.8-10.8 K/uL Red Blood Count 4.23 4.7-6.1 M/uL Hemoglobin 9.4 14.0-18.0 g/dL Hematocrit 30.7 42-52 % Mean Corpuscular Volume 72.6 80-100 fL Mean Corpuscular Hemoglobin 22.2 25-34 pg Mean Corpuscular Hemoglobin Concent 30.6 32-36 g/dl RDW Standard Deviation 45.2 36.4-46.3 fL RDW Coefficient of Variation 16.9 11.5-14.5 % Platelet Count 199 130-400 K/uL Mean Platelet Volume 7.9 7.4-10.4 fL Sodium Level 135 136-145 mmol/L Potassium Level 3.9 3.5-5.1 mmol/L Chloride Level 100 98-107 mmol/L Carbon Dioxide Level 24 21-32 mmol/L Anion Gap 11.0 3-11 mmol/L Blood Urea Nitrogen 10 7-18 mg/dl Creatinine 1.70 0.60-1.40 mg/dl Est Creatinine Clear Calc Drug Dose 63.9 ml/min Estimated GFR () 56.0 Estimated GFR (Non- 48.3 BUN/Creatinine Ratio 6.0 10-20 Random Glucose 108 70-99 mg/dl Calcium Level 9.1 8.5-10.1 mg/dl Assessment & Plan difficult scenario. pt now with elevated wbc for first time. I'm concerned he may have some bowel ischemia. ....will obtain lactic acid level though will be somewhat elevated b./c of kidney function. strongly recommend transferring to his surgical team at [place]. pain has been persistent/unchanged since Thursday morning. will d/w primary service and GI.
[2016-10-28 10:56] LABS: URINE APPEARANCE CLEAR (CLEAR); URINE BILIRUBIN NEG (NEG); URINE COLOR YELLOW; URINE EPITHELIAL CELL AUTO 0-5 /lpf (0-5); URINE NITRITE NEG (NEG); URINE PH 5.5 (4.5-7.5); URINE SPECIFIC GRAVITY 1.008 (1.000-1.030); UROBILINOGEN NEG (NEG)
--- NOTE | 2016-10-28 11:04 | DIAGNOSTIC IMAGING REPORT ---
CT ABD/PELVIS IV CONTRAST ONLY CLINICAL HISTORY: Severe abdominal pain. Recent colectomy. History of ulcerative colitis. COMPARISON STUDY: 10/26/2016 TECHNIQUE: Following the IV administration of 116 mL of Optiray-320, CT scan of the abdomen and pelvis was performed from the lung bases to the proximal femurs. Images are reviewed in the axial, sagittal, and coronal planes. IV contrast was administered without complication. CT DOSE: 558.86 mGycm FINDINGS: Lower chest: There is bibasal atelectasis. There is a small left pleural effusion. Liver: There is a 15 mm hypervascular right lobe nodule. There is a 13 mm hypodensity within the right over the liver superiorly which does not meet the criteria for simple cyst. There are several additional hypodensities, likely representing cysts. Gallbladder: Unremarkable. Spleen: The spleen is enlarged measuring 14.8 cm. Pancreas: No intrinsic pancreatic masses are visualized. There is peripancreatic fluid present. Adrenal glands: Unremarkable. Kidneys: There is left-sided perinephric fluid. There is left-sided uroepithelial enhancement. Clinical correlation regards to a urinary tract infection is recommended. No calculi are visualized. Bowel: The patient is status post a partial colectomy. There are no transition zones indicate bowel obstruction. There is a right lower quadrant ostomy. Peritoneum: There is increasing ascites. There is stable omental infiltration Vasculature: The abdominal aorta is normal in course and caliber. Adenopathy: None. Pelvic viscera: The bladder, and pelvic viscera are unremarkable. Skeletal structures: No destructive osseous lesions are seen. IMPRESSION: 1. Postsurgical changes of a subtotal colectomy. No evidence of bowel obstruction. Right lower quadrant ostomy. 2. Increasing ascites. 3. Peripancreatic fluid. This appears slightly loculated. While this could be secondary to generalized ascites, correlation with amylase and lipase is recommended to exclude pancreatitis 4. Persistent splenomegaly 5. Left-sided uroepithelial enhancement. No calculi identified. Clinical correlation in regards to a urinary tract infection is recommended 6. Multiple hepatic lesions, likely representing a combination of cysts and hemangiomas 7. Stable nonspecific infiltration of the omentum 8. Small left pleural effusion Electronically signed by: Dimitrios Abad M.D. 10/28/2016 11:03 AM Dictated Date/Time: 10/28/2016 10:49 AM
[2016-10-28 11:12] LABS: MANUAL MICROSCOPIC REQUIRED? NO; REVIEW REQ? NO
[2016-10-28] MEDS: SODIUM CHLORIDE 0.9% 1000ML 1,000 ML IV SCH (11:34)
[2016-10-28 12:59] LABS: AMYLASE 39 U/L (25-115)
--- NOTE | 2016-10-28 18:19 | Family Medicine Progress Note ---
Progress Note Date of Service October 28, 2016. Subjective Pt evaluation today including: conversation w/ patient, physical exam, chart review, lab review Pain: better controlled PO Intake: good Voiding: no voiding problems 40-year-old male with past medical history of ulcerative colitis status post total colectomy with colostomy done early September at [place], history of renal calculus presented to the ER with complaints of left-sided flank pain which started about a day after arrival. Has a Dilaudid [employer] currently in thinks pain is better controlled. Denies fever/chills, chest pain, shortness of breath. Has good output from ileostomy bag, denies any bright red blood . Still has some nausea Constitutional: No chills, No fever Eyes: No worsening of vision ENT: No hearing loss Respiratory: No cough, No sputum Cardiovascular: No chest pain Abdomen: + nausea, + pain (left lower quadrant), No vomiting Musculoskeletal: No joint pain Male : No dysuria, No incontinence, No urinary frequency Neurologic: No memory loss Psychiatric: No depression symptoms Heme: No abnormal bleeding/bruising Medications Current Inpatient Medications Medications (Trade) Dose Ordered Sig/Luis Carlos Route Start Time Stop Time Status Last Admin Dose Admin Ondansetron HCl 6 mg/Dextrose 53 ml @ 200 mls/hr Q6H PRN IV 10/26/16 10:15 11/25/16 10:14 10/28/16 05:21 200 MLS/HR Sodium Chloride (1/2 Nss 1000ml) 1,000 ml @ 150 mls/hr Q6H40M IV 10/26/16 13:15 11/25/16 13:14 10/28/16 11:33 150 MLS/HR Duloxetine HCl (Cymbalta Cap) 60 mg QAM PO 10/27/16 09:00 11/26/16 08:59 10/28/16 09:33 60 MG Lorazepam (Ativan Tab) 1 mg TID PRN PO 10/26/16 10:15 11/25/16 10:14 Multivitamins (Multivitamin Tab) 1 tab DAILY PO 10/27/16 09:00 11/26/16 08:59 10/28/16 09:33 1 TAB Zolpidem Tartrate (Ambien Tab) 5 mg HS PRN PO 10/26/16 10:15 11/25/16 10:14 10/27/16 22:28 5 MG Cyanocobalamin (Vitamin B-12 Tab) 1,000 mcg QAM PO 10/27/16 09:00 11/26/16 08:59 10/28/16 09:33 1,000 MCG Heparin Sodium (Porcine) (Heparin Sq 5000 Unit/0.5ml) 5,000 unit Q8 SQ 10/26/16 15:00 11/25/16 14:59 10/28/16 13:47 5,000 UNIT Miscellaneous (Iv Fluids Completed) 1 ea PRN PRN N/A 10/26/16 13:15 10/26/17 13:14 Hydromorphone HCl (Dilaudid Inj) 1 mg Q2H PRN IV 10/26/16 15:30 11/09/16 15:29 10/27/16 00:14 1 MG Hydromorphone HCl (Dilaudid Inj) 2 mg Q2H PRN IV 10/26/16 15:30 11/09/16 15:29 10/27/16 12:24 2 MG Naloxone HCl (Narcan Inj) 0.1 mg Q5M PRN IV 10/27/16 12:30 11/26/16 12:29 Hydromorphone HCl 25 mg 25 mg PRN PRN IV 10/27/16 12:30 11/10/16 12:29 10/28/16 09:33 25 MG Sodium Chloride (Nss 1000ml) 1,000 ml @ 15 mls/hr Q24H IV 10/27/16 12:26 11/26/16 12:25 10/27/16 13:25 15 MLS/HR Ioversol (Optiray 320) 125 ml UD PRN IV 10/28/16 10:00 11/01/16 09:59 Objective Vital Signs Date Time Temp Pulse Resp B/P Pulse Ox O2 Delivery O2 Flow Rate FiO2 10/28/16 15:31 37.6 110 18 98/63 93 Room Air 10/28/16 11:04 37.0 110 16 118/73 98 Room Air 10/28/16 08:00 Room Air 10/28/16 07:27 37.3 112 16 118/78 94 Room Air 10/28/16 04:04 37.5 104 16 110/70 94 Room Air 10/28/16 02:21 37.3 10/28/16 00:00 37.7 103 20 109/70 96 Room Air 10/28/16 00:00 Room Air 10/27/16 20:00 Room Air 10/27/16 19:42 37.4 96 18 106/68 98 Room Air Physical Exam General Appearance: WD/WN, no apparent distress Eyes: normal inspection ENT: normal ENT inspection, hearing grossly normal Neck: supple Respiratory/Chest: chest non-tender, lungs clear, normal breath sounds, no respiratory distress, no accessory muscle use Cardiovascular: regular rate, rhythm, no edema Abdomen: normal bowel sounds, soft, + tenderness (left lower quadrant), + pertinent finding (ileostomy bag) Extremities: no pedal edema Neurologic/Psychiatric: alert, normal mood/affect, oriented x 3 Laboratory Results 10/28/16 08:10 10/28/16 08:10 Test 10/28/16 08:10 10/28/16 10:25 10/28/16 10:55 10/28/16 12:34 Red Blood Count 4.23 M/uL (4.7-6.1) Mean Corpuscular Volume 72.6 fL (80-100) Mean Corpuscular Hemoglobin 22.2 pg (25-34) Mean Corpuscular Hemoglobin Concent 30.6 g/dl (32-36) RDW Standard Deviation 45.2 fL (36.4-46.3) RDW Coefficient of Variation 16.9 % (11.5-14.5) Mean Platelet Volume 7.9 fL (7.4-10.4) Anion Gap 11.0 mmol/L (3-11) Est Creatinine Clear Calc Drug Dose 63.9 ml/min Estimated GFR () 56.0 Estimated GFR (Non- 48.3 BUN/Creatinine Ratio 6.0 (10-20) Calcium Level 9.1 mg/dl (8.5-10.1) Urine Color YELLOW Urine Appearance CLEAR (CLEAR) Urine pH 5.5 (4.5-7.5) Urine Specific [place] 1.008 (1.000-1.030) Urine Protein NEG (NEG) Urine Glucose (UA) NEG (NEG) Urine Ketones TRACE (NEG) Urine Occult Blood TRACE (NEG) Urine Nitrite NEG (NEG) Urine Bilirubin NEG (NEG) Urine Urobilinogen NEG (NEG) Urine Leukocyte Esterase NEG (NEG) Urine WBC (Auto) 1-5 /hpf (0-5) Urine RBC (Auto) 0-4 /hpf (0-4) Urine Hyaline Casts (Auto) 0 /lpf (0-5) Urine Epithelial Cells (Auto) 0-5 /lpf (0-5) Urine Bacteria (Auto) NEG (NEG) Lactic Acid Level 1.1 mmol/L (0.4-2.0) Amylase Level 39 U/L (25-115) Lipase 137 U/L (73-393) CT ABD/PELVIS IV CONTRAST ONLY CLINICAL HISTORY: Severe abdominal pain. Recent colectomy. History of ulcerative colitis. COMPARISON STUDY: 10/26/2016 TECHNIQUE: Following the IV administration of 116 mL of Optiray-320, CT scan of the abdomen and pelvis was performed from the lung bases to the proximal femurs. Images are reviewed in the axial, sagittal, and coronal planes. IV contrast was administered without complication. CT DOSE: 558.86 mGycm FINDINGS: Lower chest: There is bibasal atelectasis. There is a small left pleural effusion. Liver: There is a 15 mm hypervascular right lobe nodule. There is a 13 mm hypodensity within the right over the liver superiorly which does not meet the criteria for simple cyst. There are several additional hypodensities, likely representing cysts. Gallbladder: Unremarkable. Spleen: The spleen is enlarged measuring 14.8 cm. Pancreas: No intrinsic pancreatic masses are visualized. There is peripancreatic fluid present. Adrenal glands: Unremarkable. Kidneys: There is left-sided perinephric fluid. There is left-sided uroepithelial enhancement. Clinical correlation regards to a urinary tract infection is recommended. No calculi are visualized. Bowel: The patient is status post a partial colectomy. There are no transition zones indicate bowel obstruction. There is a right lower quadrant ostomy. Peritoneum: There is increasing ascites. There is stable omental infiltration Vasculature: The abdominal aorta is normal in course and caliber. Adenopathy: None. Pelvic viscera: The bladder, and pelvic viscera are unremarkable. Skeletal structures: No destructive osseous lesions are seen. IMPRESSION: 1. Postsurgical changes of a subtotal colectomy. No evidence of bowel obstruction. Right lower quadrant ostomy. 2. Increasing ascites. 3. Peripancreatic fluid. This appears slightly loculated. While this could be secondary to generalized ascites, correlation with amylase and lipase is recommended to exclude pancreatitis 4. Persistent splenomegaly 5. Left-sided uroepithelial enhancement. No calculi identified. Clinical correlation in regards to a urinary tract infection is recommended 6. Multiple hepatic lesions, likely representing a combination of cysts and hemangiomas 7. Stable nonspecific infiltration of the omentum 8. Small left pleural effusion Electronically signed by: Dimitrios Abad M.D. 10/28/2016 11:03 AM Dictated Date/Time: 10/28/2016 10:49 AM Assessment and Plan 41-year-old male with past medical history of ulcerative colitis status post total colectomy with colostomy done early September at [place], history of renal calculus presented to the ER with complaints of left-sided flank pain which started about a day after arrival. Some concern of pancreatitis today based of CT scan and elevated white count Left-sided flank/abdominal pain: - CT abdomen and pelvis suggestive of dilatation of the collecting system but no renal calculi are identified. Upper omental infiltration. Small to moderate ascites - CT abdomen and pelvis with contrast obtained today:1. Postsurgical changes of a subtotal colectomy. No evidence of bowel obstruction. Right lower quadrant ostomy. 2. Increasing ascites. 3. Peripancreatic fluid. This appears slightly loculated. While this could be secondary to generalized ascites, correlation with amylase and lipase is recommended to exclude pancreatitis 4. Persistent splenomegaly 5. Left-sided uroepithelial enhancement. No calculi identified. Clinical correlation in regards to a urinary tract infection is recommended 6. Multiple hepatic lesions, likely representing a combination of cysts and hemangiomas 7. Stable nonspecific infiltration of the omentum 8. Small left pleural effusion - Continue Dilaudid [employer]IC - Per urology - no concern of urinary stone considering negative imaging and negative urinalysis. - Contacted Dr. Chacon from [place] again today - Check amylase and lipase with chart within normal limits - Recommended transfer patient to [facility] [place] - patient not agreable. 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 I have discussed the case with Dr. Carrillo. The above note reflects my findings, conclusions, and recommendations.
[2016-10-28] MEDS: ZOLPIDEM TARTRATE 5 MG TAB PO PRN (21:51)
[2016-10-29] MEDS: SODIUM CHLORIDE 0.45% 1000ML 1,000 ML IV SCH ×2 (01:25→08:21)
[2016-10-29 01:45] VITALS: BP 100/62
[2016-10-29 04:05] VITALS: BP 106/69; PULSE 109; TEMP 36.5; O2SAT 95
[2016-10-29] MEDS: HEPARIN SOD 5000 UNIT/0.5 ML CARP SQ SCH (05:51)
[2016-10-29 07:16] VITALS: BP 105/67; PULSE 102; TEMP 37.6; O2SAT 92
[2016-10-29 07:21] LABS: HEMATOCRIT 22.9 % (42-52); MEAN CELL VOLUME 72.5 fL (80-100); MEAN CORPUSCULAR HEMOGLOBIN 22.2 pg (25-34); MEAN CORPUSCULAR HGB CONC 30.6 g/dl (32-36); MEAN PLATELET VOLUME 7.7 fL (7.4-10.4); PLATELET COUNT 131 K/uL (130-400); RED BLOOD COUNT 3.16 M/uL (4.7-6.1); WHITE BLOOD COUNT 8.91 K/uL (4.8-10.8)
[2016-10-29] MEDS: HYDROmorphone HCL 0.5MG/ML 50 ML CASSETTE IV PRN (07:33)
[2016-10-29 08:01] LABS: CALCIUM 8.3 mg/dl (8.5-10.1); CREATININE 1.7 mg/dl (0.60-1.40); POTASSIUM 3.6 mmol/L (3.5-5.1)
[2016-10-29 08:04] LABS: ALB/GLOB RATIO 0.7 (0.9-2)
[2016-10-29] MEDS: CYANOCOBALAMIN 500 MCG TAB (VIT B-12) PO SCH (08:21)
[2016-10-29] MEDS: DULOXETINE HCL 60 MG CAP PO SCH (08:21)
[2016-10-29] MEDS: MULTIVITAMIN TAB PO SCH (08:21)
[2016-10-29] MEDS ORDERED: ACETAMINOPHEN IV 650 MG in EMPTY BAG 0 ML IV PRN (09:00)
[2016-10-29] MEDS ORDERED: ONDANSETRON INJ 2 MG/ML 2 ML VIAL IV. SCH (09:00)
--- NOTE | 2016-10-29 09:37 | Surgery Progress Note ---
Surgery Progress Note Date of Service October 29, 2016. Subjective Patient reports slight improvement from yesterday. He was able to get about 1.5hrs of sleep last night; however, he woke up in severe pain. Patient using [employer]. Reports nausea when pain increases. Patient continues to have lower abdominal pain that comes in waves. Objective Vital Signs: Date Time Temp Pulse Resp B/P Pulse Ox O2 Delivery O2 Flow Rate FiO2 10/29/16 07:16 37.6 102 18 105/67 92 Room Air 10/29/16 04:05 36.5 109 20 106/69 95 Room Air 10/29/16 01:45 100/62 10/29/16 00:00 Room Air 10/28/16 23:53 37.6 114 18 89/52 93 Room Air 10/28/16 20:05 37.4 104 18 107/68 94 Room Air 10/28/16 16:00 Room Air 10/28/16 15:31 37.6 110 18 98/63 93 Room Air 10/28/16 11:04 37.0 110 16 118/73 98 Room Air Abdomen: + pertinent finding (Patient still hesitant to have abdomen examined for fear of pain. Stoma pink- functioning. ) Laboratory Results: Results Past 24 Hours Test 10/28/16 10:25 10/28/16 10:55 10/28/16 12:34 10/29/16 06:58 Range/Units Urine Color YELLOW Urine Appearance CLEAR CLEAR Urine pH 5.5 4.5-7.5 Urine Specific [place] 1.008 1.000-1.030 Urine Protein NEG NEG Urine Glucose (UA) NEG NEG Urine Ketones TRACE NEG Urine Occult Blood TRACE NEG Urine Nitrite NEG NEG Urine Bilirubin NEG NEG Urine Urobilinogen NEG NEG Urine Leukocyte Esterase NEG NEG Urine WBC (Auto) 1-5 0-5 /hpf Urine RBC (Auto) 0-4 0-4 /hpf Urine Hyaline Casts (Auto) 0 0-5 /lpf Urine Epithelial Cells (Auto) 0-5 0-5 /lpf Urine Bacteria (Auto) NEG NEG Lactic Acid Level 1.1 0.4-2.0 mmol/L Amylase Level 39 25-115 U/L Lipase 137 68 73-393 U/L White Blood Count 8.91 4.8-10.8 K/uL Red Blood Count 3.16 4.7-6.1 M/uL Hemoglobin 7.0 14.0-18.0 g/dL Hematocrit 22.9 42-52 % Mean Corpuscular Volume 72.5 80-100 fL Mean Corpuscular Hemoglobin 22.2 25-34 pg Mean Corpuscular Hemoglobin Concent 30.6 32-36 g/dl RDW Standard Deviation 45.8 36.4-46.3 fL RDW Coefficient of Variation 17.3 11.5-14.5 % Platelet Count 131 130-400 K/uL Mean Platelet Volume 7.7 7.4-10.4 fL Sodium Level 136 136-145 mmol/L Potassium Level 3.6 3.5-5.1 mmol/L Chloride Level 103 98-107 mmol/L Carbon Dioxide Level 25 21-32 mmol/L Anion Gap 8.0 3-11 mmol/L Blood Urea Nitrogen 10 7-18 mg/dl Creatinine 1.70 0.60-1.40 mg/dl Est Creatinine Clear Calc Drug Dose 63.9 ml/min Estimated GFR () 56.0 Estimated GFR (Non- 48.3 BUN/Creatinine Ratio 6.0 10-20 Random Glucose 85 70-99 mg/dl Calcium Level 8.3 8.5-10.1 mg/dl Total Bilirubin 0.7 0.2-1 mg/dl Aspartate Amino Transf (AST/SGOT) 15 15-37 U/L Alanine Aminotransferase (ALT/SGPT) 27 12-78 U/L Alkaline Phosphatase 52 45-117 U/L Total Protein 6.4 6.4-8.2 gm/dl Albumin 2.7 3.4-5.0 gm/dl Globulin 3.7 2.5-4.0 gm/dl Albumin/Globulin Ratio 0.7 0.9-2 Microbiology Results 10/29/16 Urine Culture, Received Pending CT ABD/PELVIS IV CONTRAST ONLY CLINICAL HISTORY: Severe abdominal pain. Recent colectomy. History of ulcerative colitis. COMPARISON STUDY: 10/26/2016 TECHNIQUE: Following the IV administration of 116 mL of Optiray-320, CT scan of the abdomen and pelvis was performed from the lung bases to the proximal femurs. Images are reviewed in the axial, sagittal, and coronal planes. IV contrast was administered without complication. CT DOSE: 558.86 mGycm FINDINGS: Lower chest: There is bibasal atelectasis. There is a small left pleural effusion. Liver: There is a 15 mm hypervascular right lobe nodule. There is a 13 mm hypodensity within the right over the liver superiorly which does not meet the criteria for simple cyst. There are several additional hypodensities, likely representing cysts. Gallbladder: Unremarkable. Spleen: The spleen is enlarged measuring 14.8 cm. Pancreas: No intrinsic pancreatic masses are visualized. There is peripancreatic fluid present. Adrenal glands: Unremarkable. Kidneys: There is left-sided perinephric fluid. There is left-sided uroepithelial enhancement. Clinical correlation regards to a urinary tract infection is recommended. No calculi are visualized. Bowel: The patient is status post a partial colectomy. There are no transition zones indicate bowel obstruction. There is a right lower quadrant ostomy. Peritoneum: There is increasing ascites. There is stable omental infiltration Vasculature: The abdominal aorta is normal in course and caliber. Adenopathy: None. Pelvic viscera: The bladder, and pelvic viscera are unremarkable. Skeletal structures: No destructive osseous lesions are seen. IMPRESSION: 1. Postsurgical changes of a subtotal colectomy. No evidence of bowel obstruction. Right lower quadrant ostomy. 2. Increasing ascites. 3. Peripancreatic fluid. This appears slightly loculated. While this could be secondary to generalized ascites, correlation with amylase and lipase is recommended to exclude pancreatitis 4. Persistent splenomegaly 5. Left-sided uroepithelial enhancement. No calculi identified. Clinical correlation in regards to a urinary tract infection is recommended 6. Multiple hepatic lesions, likely representing a combination of cysts and hemangiomas 7. Stable nonspecific infiltration of the omentum 8. Small left pleural effusion Electronically signed by: Dimitrios Abad M.D. 10/28/2016 11:03 AM Dictated Date/Time: 10/28/2016 10:49 AM Assessment & Plan 10/29/16 Dr. Weston in to see patient. Reviewed patient's CT scan from yesterday. Reviewed labs from yesterday and this AM. Less likely bowel ischemia- possible omental infarct? urological origin? Discussed patient with Dr. Hardin again today- her service will add IV tylenol and increase Zofran from 4mg to 8mg. We will continue to follow along. 10/28/16 difficult scenario. pt now with elevated wbc for first time. I'm concerned he may have some bowel ischemia. ....will obtain lactic acid level though will be somewhat elevated b./c of kidney function. strongly recommend transferring to his surgical team at [place]. pain has been persistent/unchanged since Thursday morning. will d/w primary service and GI. d/w Dr. Hardin....she is aware of the situation and in contact with his primary surgical team...plan is to obtain ct scan with contrast and then d/w with his [facility] surgeon... may simply be omental infarction but could be small bowel ischemia. will help in any way but will likely need transferred to [place].
--- NOTE | 2016-10-29 09:56 | Nephrology Progress Note ---
Nephrology Progress Note Date of Service October 29, 2016. Chief Complaint Acute renal insufficiency Subjective No acute events overnight. Reports minimal improvement in pain this morning. Appetite good. No nausea. Abdominal tenderness improving. Some left sided tenderness near the back persists. No fevers or chills. No dysuria. Ostomy draining liquid stool. Ambulating without difficulty. Abdominal CT reviewed yesterday. Review of Systems A complete review of systems was performed. Pertinent positives are noted above. All other systems are negative. Vital Signs Last 8 Hrs Date Time Temp Pulse Resp B/P Pulse Ox O2 Delivery O2 Flow Rate FiO2 10/29/16 07:16 37.6 102 18 105/67 92 Room Air 10/29/16 04:05 36.5 109 20 106/69 95 Room Air I & O 24-Hour Column 10/29/16 08:00 Intake Total 4262 ml Output Total 2425 ml Balance 1837 ml Last Recorded Weight Weight (Kilograms): 80.600 Physical Exam General Appearance: WD/WN, no apparent distress Head: normocephalic, atraumatic Eyes: normal inspection, sclerae normal ENT: normal ENT inspection, pharynx normal Neck: supple, no JVD Respiratory/Chest: lungs clear, no respiratory distress, no accessory muscle use Cardiovascular: regular rate, rhythm, no murmur Abdomen/GI: soft, + tenderness, + pertinent finding (ostomy draining liquid stool) Extremities/Musculoskelatal: normal inspection, no pedal edema Neurologic/Psych: alert, oriented x 3 Family History Diabetes mellitus FHx: cancer Social History Smoking Status: Never smoker Alcohol Use: occasionally Drug Use: none Marital Status: Housing Status: lives with significant other Occupation: employed Laboratory Results Past 24 Hours 10/29/16 06:58 10/29/16 06:58 Test 10/28/16 10:25 10/28/16 10:55 10/28/16 12:34 10/29/16 06:58 Urine Color YELLOW Urine Appearance CLEAR (CLEAR) Urine pH 5.5 (4.5-7.5) Urine Specific [place] 1.008 (1.000-1.030) Urine Protein NEG (NEG) Urine Glucose (UA) NEG (NEG) Urine Ketones TRACE (NEG) Urine Occult Blood TRACE (NEG) Urine Nitrite NEG (NEG) Urine Bilirubin NEG (NEG) Urine Urobilinogen NEG (NEG) Urine Leukocyte Esterase NEG (NEG) Urine WBC (Auto) 1-5 /hpf (0-5) Urine RBC (Auto) 0-4 /hpf (0-4) Urine Hyaline Casts (Auto) 0 /lpf (0-5) Urine Epithelial Cells (Auto) 0-5 /lpf (0-5) Urine Bacteria (Auto) NEG (NEG) Lactic Acid Level 1.1 mmol/L (0.4-2.0) Amylase Level 39 U/L (25-115) Lipase 137 U/L (73-393) 68 U/L (73-393) Red Blood Count 3.16 M/uL (4.7-6.1) Mean Corpuscular Volume 72.5 fL (80-100) Mean Corpuscular Hemoglobin 22.2 pg (25-34) Mean Corpuscular Hemoglobin Concent 30.6 g/dl (32-36) RDW Standard Deviation 45.8 fL (36.4-46.3) RDW Coefficient of Variation 17.3 % (11.5-14.5) Mean Platelet Volume 7.7 fL (7.4-10.4) Anion Gap 8.0 mmol/L (3-11) Est Creatinine Clear Calc Drug Dose 63.9 ml/min Estimated GFR () 56.0 Estimated GFR (Non- 48.3 BUN/Creatinine Ratio 6.0 (10-20) Calcium Level 8.3 mg/dl (8.5-10.1) Total Bilirubin 0.7 mg/dl (0.2-1) Aspartate Amino Transf (AST/SGOT) 15 U/L (15-37) Alanine Aminotransferase (ALT/SGPT) 27 U/L (12-78) Alkaline Phosphatase 52 U/L (45-117) Total Protein 6.4 gm/dl (6.4-8.2) Albumin 2.7 gm/dl (3.4-5.0) Globulin 3.7 gm/dl (2.5-4.0) Albumin/Globulin Ratio 0.7 (0.9-2) Allergies Coded Allergies: Mercaptopurine (Verified Allergy, Severe, SUPPRESSED IMMUNITY, 09/12/16) Morphine (Verified Adverse Reaction, Mild, HEADACHE, 09/12/16) Prochlorperazine (Verified Adverse Reaction, Mild, DYSTONIC, 09/12/16) NSAIDs (Verified Adverse Reaction, Unknown, SEE BELOW, 09/12/16) DOES NOT TAKE D/T COLITIS Medications Current Inpatient Medications Medications (Trade) Dose Ordered Sig/Luis Carlos Route Start Time Stop Time Status Last Admin Dose Admin Sodium Chloride (1/2 Nss 1000ml) 1,000 ml @ 150 mls/hr Q6H40M IV 10/26/16 13:15 11/25/16 13:14 10/29/16 08:21 150 MLS/HR Duloxetine HCl (Cymbalta Cap) 60 mg QAM PO 10/27/16 09:00 11/26/16 08:59 10/29/16 08:21 60 MG Lorazepam (Ativan Tab) 1 mg TID PRN PO 10/26/16 10:15 11/25/16 10:14 Multivitamins (Multivitamin Tab) 1 tab DAILY PO 10/27/16 09:00 11/26/16 08:59 10/29/16 08:21 1 TAB Zolpidem Tartrate (Ambien Tab) 5 mg HS PRN PO 10/26/16 10:15 11/25/16 10:14 10/28/16 21:51 5 MG Cyanocobalamin (Vitamin B-12 Tab) 1,000 mcg QAM PO 10/27/16 09:00 11/26/16 08:59 10/29/16 08:21 1,000 MCG Heparin Sodium (Porcine) (Heparin Sq 5000 Unit/0.5ml) 5,000 unit Q8 SQ 10/26/16 15:00 11/25/16 14:59 10/29/16 05:51 5,000 UNIT Miscellaneous (Iv Fluids Completed) 1 ea PRN PRN N/A 10/26/16 13:15 10/26/17 13:14 Hydromorphone HCl (Dilaudid Inj) 1 mg Q2H PRN IV 10/26/16 15:30 11/09/16 15:29 10/27/16 00:14 1 MG Hydromorphone HCl (Dilaudid Inj) 2 mg Q2H PRN IV 10/26/16 15:30 11/09/16 15:29 10/27/16 12:24 2 MG Naloxone HCl (Narcan Inj) 0.1 mg Q5M PRN IV 10/27/16 12:30 11/26/16 12:29 Hydromorphone HCl 25 mg 25 mg PRN PRN IV 10/27/16 12:30 11/10/16 12:29 10/29/16 07:33 25 MG Sodium Chloride (Nss 1000ml) 1,000 ml @ 15 mls/hr Q24H IV 10/27/16 12:26 11/26/16 12:25 10/27/16 13:25 15 MLS/HR Ioversol 125 ml 125 ml UD PRN IV 10/28/16 10:00 11/01/16 09:59 Acetaminophen/ Empty Bag (Ofirmev Iv/ Empty Iv Bag 100ml) 65 ml @ 260 mls/hr Q6H PRN IV 10/29/16 09:00 11/28/16 08:59 Ondansetron HCl (Zofran Inj) 4 mg Q6H IV. 10/29/16 09:00 11/28/16 08:59 10/29/16 09:11 4 MG Impression (1) Acute renal insufficiency (2) Left flank pain (3) Microscopic hematuria (4) Left lower quadrant pain Mr. Jesús Cummins is a 41-year-old male with UC admitted with left sided flank and abdominal pain. ARIN consistent with multifactorial ATN. Baseline creatinine 1.0 mg/dL in June. He was admitted with ARIN and a serum creatinine of 2.0 mg/dL. Creatinine was 1.3-.14 when discharged from [facility] in April 2017. He is non oliguric. Urine microscopy negative. Renal ultrasound shows fullness of the left renal collecting system. It is very unlikely that symptoms are related to kidney stone disease. At this time, volume status and blood pressure are appropriate. Medications are appropriate for renal function (note that Toradol was given on admission). Creatinine improving and volume status acceptable. CT of the abdomen with IV contrast obtained yesterday. Oral intake appropriate. Will stop IVF today. Continue to monitor daily metabolic profile for renal recovery. Medications are appropriately dosed for renal function. Avoid any additional NSAIDs. Recommendations -- Stop IV normal saline -- Monitor metabolic profile daily -- Avoid NSAIDs -- Document I/O's -- Given persistent hypotension, suggest weaning pain medications
--- NOTE | 2016-10-29 11:04 | Gastroenterology Progress Note ---
Progress Note Date of Service: October 29, 2016 Subjective Pt evaluation today including: conversation w/ patient, physical exam, chart review, lab review, review of studies, review of inpatient medication list Mr. Cummins is a 41 yr old male S/P recent colectomy with ileostomy for UC admitted with abdominal pain, which is slightly improving. Able to tolerate regular diet this morning. CT with IV contrast done yesterday with uroepithelial enhancement, hepatic cysts and hemangiomas, stable non specific infiltration of the omentum and peripancreatic fluid in addition to persistent splenomegaly. Review of Systems Constitutional: No fever ENT: No hearing loss Respiratory: No cough Cardiac: No chest pain Abdomen: + pain, + see HPI, No GI bleeding, No constipation, No diarrhea, No dysphagia, No nausea, No odynophagia, No vomiting Male : No dysuria Neuro: No memory loss Psych: No depression symptoms Endo: No fatigue Skin: No rash Medications Current Inpatient Medications Medications (Trade) Dose Ordered Sig/Luis Carlos Route Start Time Stop Time Status Last Admin Dose Admin Duloxetine HCl (Cymbalta Cap) 60 mg QAM PO 10/27/16 09:00 11/26/16 08:59 10/29/16 08:21 60 MG Lorazepam (Ativan Tab) 1 mg TID PRN PO 10/26/16 10:15 11/25/16 10:14 Multivitamins (Multivitamin Tab) 1 tab DAILY PO 10/27/16 09:00 11/26/16 08:59 10/29/16 08:21 1 TAB Zolpidem Tartrate (Ambien Tab) 5 mg HS PRN PO 10/26/16 10:15 11/25/16 10:14 10/28/16 21:51 5 MG Cyanocobalamin (Vitamin B-12 Tab) 1,000 mcg QAM PO 10/27/16 09:00 11/26/16 08:59 10/29/16 08:21 1,000 MCG Heparin Sodium (Porcine) (Heparin Sq 5000 Unit/0.5ml) 5,000 unit Q8 SQ 10/26/16 15:00 11/25/16 14:59 10/29/16 05:51 5,000 UNIT Miscellaneous (Iv Fluids Completed) 1 ea PRN PRN N/A 10/26/16 13:15 10/26/17 13:14 Hydromorphone HCl (Dilaudid Inj) 1 mg Q2H PRN IV 10/26/16 15:30 11/09/16 15:29 10/27/16 00:14 1 MG Hydromorphone HCl (Dilaudid Inj) 2 mg Q2H PRN IV 10/26/16 15:30 11/09/16 15:29 10/27/16 12:24 2 MG Naloxone HCl (Narcan Inj) 0.1 mg Q5M PRN IV 10/27/16 12:30 11/26/16 12:29 Hydromorphone HCl 25 mg 25 mg PRN PRN IV 10/27/16 12:30 11/10/16 12:29 10/29/16 07:33 25 MG Sodium Chloride (Nss 1000ml) 1,000 ml @ 15 mls/hr Q24H IV 10/27/16 12:26 11/26/16 12:25 10/27/16 13:25 15 MLS/HR Ioversol 125 ml 125 ml UD PRN IV 10/28/16 10:00 11/01/16 09:59 Acetaminophen/ Empty Bag (Ofirmev Iv/ Empty Iv Bag 100ml) 65 ml @ 260 mls/hr Q6H PRN IV 10/29/16 09:00 11/28/16 08:59 Ondansetron HCl (Zofran Inj) 4 mg Q6H IV. 10/29/16 09:00 11/28/16 08:59 10/29/16 09:11 4 MG Objective Vital Signs Date Time Temp Pulse Resp B/P Pulse Ox O2 Delivery O2 Flow Rate FiO2 10/29/16 08:15 Room Air 10/29/16 07:16 37.6 102 18 105/67 92 Room Air 10/29/16 04:05 36.5 109 20 106/69 95 Room Air 10/29/16 01:45 100/62 10/29/16 00:00 Room Air 10/28/16 23:53 37.6 114 18 89/52 93 Room Air 10/28/16 20:05 37.4 104 18 107/68 94 Room Air 10/28/16 16:00 Room Air 10/28/16 15:31 37.6 110 18 98/63 93 Room Air 10/28/16 11:04 37.0 110 16 118/73 98 Room Air Physical Exam General Appearance: no apparent distress Neck: no JVD Respiratory/Chest: lungs clear Cardiovascular: regular rate, rhythm, no JVD, no murmur Abdomen: soft, + tenderness (moderately tender over entire abdomen, worse in the LLQ) Extremities: non-tender Neurologic/Psych: alert, normal mood/affect, oriented x 3 Skin: no jaundice Laboratory Results Last 24 Hours Test 10/28/16 12:34 10/29/16 06:58 Amylase Level 39 U/L Lipase 137 U/L 68 U/L White Blood Count 8.91 K/uL Red Blood Count 3.16 M/uL Hemoglobin 7.0 g/dL Hematocrit 22.9 % Mean Corpuscular Volume 72.5 fL Mean Corpuscular Hemoglobin 22.2 pg Mean Corpuscular Hemoglobin Concent 30.6 g/dl RDW Standard Deviation 45.8 fL RDW Coefficient of Variation 17.3 % Platelet Count 131 K/uL Mean Platelet Volume 7.7 fL Sodium Level 136 mmol/L Potassium Level 3.6 mmol/L Chloride Level 103 mmol/L Carbon Dioxide Level 25 mmol/L Anion Gap 8.0 mmol/L Blood Urea Nitrogen 10 mg/dl Creatinine 1.70 mg/dl Est Creatinine Clear Calc Drug Dose 63.9 ml/min Estimated GFR () 56.0 Estimated GFR (Non- 48.3 BUN/Creatinine Ratio 6.0 Random Glucose 85 mg/dl Calcium Level 8.3 mg/dl Total Bilirubin 0.7 mg/dl Aspartate Amino Transf (AST/SGOT) 15 U/L Alanine Aminotransferase (ALT/SGPT) 27 U/L Alkaline Phosphatase 52 U/L Total Protein 6.4 gm/dl Albumin 2.7 gm/dl Globulin 3.7 gm/dl Albumin/Globulin Ratio 0.7 Assessment and Plan Mr. Cummins is a 41 yr old male with abdominal pain S/P colectomy. Differentials are omental infarct, mesenteric clot,UTI, pancreatitis (unlikely as no focal upper abdomen pain and amylase/lipase not elevated). Plan: 1. Advance diet. 2. Urology work up recommended. 3. No GI procedures indicated. I have seen , examined and agree with the plan as outlined by GEOFF Roberts as above. -exam reveals soft abd -? left renal issue vs intrabdominal process-agree with transfer
[2016-10-29 11:31] VITALS: BP 113/73; PULSE 108; TEMP 36.9; O2SAT 99
--- NOTE | 2016-10-29 11:39 | Discharge Summary ---
Discharge Summary Date of Service October 29, 2016. (Brielle Carrillo MD) Discharge Summary Admission Date: October 28, 2016 at 15:43 Discharge Date: October 29, 2016 Discharge Disposition: Acute care facility Principal Diagnosis: left flank pain Immunizations: Have You Had Influenza Vaccine: No History of Tetanus Vaccine?: Yes History of Pneumococcal: No History of Hepatitis B Vaccine: No Consultations: Urology, general surgery, gastroenterology, nephrology. (Brielle Carrillo MD) Discharge Exam Pain in the left lower quadrant is better controlled today but still thinks pain as a 6-7/10. Also has associated nausea but denies any vomiting. Denies fevers or chills but overnight he he stated that he felt warm. Denies any chest pains, shortness of breath, palpitations, dark or bright red output in his colostomy bag. Review of Systems: Constitutional: No chills, No fever Eyes: No worsening of vision ENT: No hearing loss Respiratory: No cough, No sputum Cardiovascular: No chest pain Abdomen: + nausea, + pain (left lower quadrant) Musculoskeletal: No joint pain Genitourinary - Male: No dysuria, No hematuria, No urinary frequency, No urinary urgency Neurologic: No memory loss, No paralysis Endocrine: No fatigue Hematologic / Lymphatic: No abnormal bleeding/bruising Integumentary: No rash Physical Exam: General Appearance: WD/WN, no apparent distress Eyes: normal inspection ENT: normal ENT inspection, hearing grossly normal Neck: supple, no adenopathy, thyroid normal Respiratory/Chest: chest non-tender, lungs clear, normal breath sounds, no respiratory distress, no accessory muscle use Cardiovascular: + tachycardia Abdomen / GI: normal bowel sounds, soft, + tenderness (left flank and left lower quadrant) Extremities: normal inspection, no calf tenderness, no pedal edema Neurologic/Psychiatric: alert, normal mood/affect, oriented x 3 Skin: normal color (Brielle Carrillo MD) Review of Systems: Constitutional: No fever Respiratory: No shortness of breath Cardiovascular: No chest pain Abdomen: + pain (controlled with [employer] pump) Physical Exam: General Appearance: no apparent distress Respiratory/Chest: no respiratory distress, + decreased breath sounds (base) Cardiovascular: regular rate, rhythm Abdomen / GI: normal bowel sounds, soft, + tenderness (generalized) Neurologic/Psychiatric: alert, oriented x 3 Skin: warm/dry (Martha Hardin M.D.) Hospital Course 41-year-old male with past medical history of ulcerative colitis with recurrent C. difficile colitis status post recent laparoscopic total colectomy with end ileostomy performed at [facility] in early September and history of prior renal calculi about a year ago presented to the ER with complaints of left -sided flank pain that started 1 day prior to arrival. He had stated that he was doing well postop and was in his usual state of health and developed sudden onset left-sided flank pain which was reminiscent of his kidney stone pain on year ago. Denies any nausea, vomiting, recent NSAID use. Denied any change in the output in the ileostomy bag, denied hematuria, dysuria, frequency, fevers or chills Left-sided flank pain: While in the ER, he received Toradol for pain and treated with IV fluids - UA was negative Renal US:10/26 IMPRESSION: 1. No hydronephrosis. No calculi identified by sonography. 2. Small to moderate ascites. 3. Several hepatic lesions which likely reflect cysts and hemangiomas, as shown on prior imaging studies. 4. Mild splenomegaly, either unchanged or slightly increased since CT of December 27, 2015. CT abd/pelvis:10/26: IMPRESSION: 1. Mild left collecting system dilatation. No ureteral calculi identified. This finding is nonspecific but could be related to a recently passed calculus or less likely an infectious process. 2. Status post subtotal colectomy. No bowel obstruction. Small to moderate abdominal and pelvic ascites. 3. Upper omental infiltration. This is nonspecific in the early postoperative setting although an omental infarct could have this imaging appearance His pain was managed with IV Dilaudid but he complained of excruciating left- sided flank pain after which he was switched to [facility] Gastroenterology and general surgery, urology were consulted Repeat CT abdomen and pelvis was performed on 10/28: IMPRESSION: 1. Postsurgical changes of a subtotal colectomy. No evidence of bowel obstruction. Right lower quadrant ostomy. 2. Increasing ascites. 3. Peripancreatic fluid. This appears slightly loculated. While this could be secondary to generalized ascites, correlation with amylase and lipase is recommended to exclude pancreatitis 4. Persistent splenomegaly 5. Left-sided uroepithelial enhancement. No calculi identified. Clinical correlation in regards to a urinary tract infection is recommended 6. Multiple hepatic lesions, likely representing a combination of cysts and hemangiomas 7. Stable nonspecific infiltration of the omentum 8. Small left pleural effusion There was some concern of pancreatitis on the abdominal CT and Amylase and lipase were checked and found to be within normal limits - Per urology- no concern of urinary stone considering negative imaging and negative urinalysis. After consulting with Dr. Chacon, his surgeon from [facility]- he will be transferred to [place] Acute kidney injury: -Creatinine on presentation was 2-->1.9-->1.7--->1.7 Had been receiving IVF which was stopped today considering improvement in renal function and good PO intake Transferred to [facility] for further evaluation by his surgeon Dr. Chacon Total Time Spent: Greater than 30 minutes This includes examination of the patient, discharge planning, medication reconciliation, and communication with other providers. (Brielle Carrillo MD) I have reviewed the medical record and performed a history and physical examination of this patient today. I have discussed the case with Dr Carrillo. The above note reflects my findings, conclusions, and recommendations. Transferred to [facility] for evaluation of abdominal pain with intraabdominal fluid on CT scan and being 3wks post op after total colectomy at [facility] Total Time Spent: Greater than 30 minutes (45) (Martha Hardin M.D.) Discharge Instructions Please refer to the electronic Patient Visit Report (Discharge Instructions) for additional information. (Brielle Carrillo MD) Additional Copies To Oscar Ruiz M.D. Resident Tracking Resident Involvement: Resident Care Provided Care Provided: Adult Hospital Medicine (Brielle Carrillo MD)
[2016-10-29 12:17] LABS: HEMATOCRIT 25.6 % (42-52)
[2016-10-29 12:26] VITALS: BP 113/73; PULSE 108; TEMP 36.9; O2SAT 99
== END 2016-10-29 13:35 | disposition short-term general hospital (02) | DRG 392 ==
LOC: CANRESERV → ENRESERVTM → ENRESERVDT → C.EDB 06:14 → C.MS2W 10:07 → UNDOADMOB 10:07 → OBSVTOIN 10-28 15:43
PROVIDERS: ADMIT Internal Medicine; ATTEND Family Medicine
DX: R10.32 Left lower quadrant pain (principal); N17.9 Acute kidney failure, unspecified; R18.8 Other ascites; Z83.3 Family history of diabetes mellitus; F41.9 Anxiety disorder, unspecified; F32.9 Major depressive disorder, single episode, unspecified; Z90.49 Acquired absence of other specified parts of digestive tract; Z80.42 Family history of malignant neoplasm of prostate; Z93.2 Ileostomy status; Z87.442 Personal history of urinary calculi; Z87.19 Personal history of other diseases of the digestive system

== ENCOUNTER 2016-11-16 16:36 | Emergency (ER) | payer BC ==
[~2016-11-16] VITALS: Ht 190.5 cm; Wt 76.6 kg
[~2016-11-16 16:36] MED LIST changes: +ACET-1222 PO; -ACET325T96 PO; +ATV/1 PO; +ENOX40IN SQ; -HYDR-5688 PO; +MULT-506 PO; +OXYC1TAB3 PO
[2016-11-16 16:40] VITALS: Ht 190.5 cm; Wt 76.6 kg
[2016-11-16] MEDS ORDERED: SODIUM CHLORIDE 0.9% 1000ML 1,000 ML IV STA ×2 (18:01→18:41)
[2016-11-16] MEDS ORDERED: HYDROmorphone INJ 1 MG/ML SYR IV STA ×2 (18:01→18:41)
[2016-11-16] MEDS ORDERED: ONDANSETRON INJ 2 MG/ML 2 ML VIAL IV STA (18:01)
--- NOTE | 2016-11-16 18:05 | EMERGENCY ROOM VISIT NOTE ---
History Report prepared by Adriano: Kim Campos Under the Supervision of: Dr. Clark Padgett M.D. First contact with patient: 17:56 Chief Complaint: FLANK PAIN Stated Complaint: LEFT KIDNEY PAIN POST-OP History of Present Illness The patient is a 41 year old male who presents to the Emergency Room with complaints of worsening left sided flank pain for the past few days. He reports underwent a colon resection and ileostomy on October 01 at [facility]. On October 26, the patient had imaging done that showed one of his ureters was accidentally clipped during the surgery. A left kidney drain was placed on October 31. The patient states in the past few days, he has developed left sided flank pain which has been worsening. He has been using Oxycodone for his discomfort, but reports it is only providing minimal relief. He rates his current pain as a 6/10 in severity. The patient admits to a mild fever last night and also admits to nausea, a loss of appetite, chills and generalized weakness. He has been trying to keep up with fluids in the last few days. Source of History: patient Onset: past few days Position: back (left sided flank) Symptom Intensity: 6/10 Timing: worsening Modifying Factors (Relieving): narcotics (Oxycodone) Associated Symptoms: + chills, + fevers, + nausea, + weakness Review of Systems See HPI for pertinent positives & negatives. A total of 10 systems reviewed and were otherwise negative. Past Medical & Surgical Medical Problems: (1) Abdominal pain (2) Acute renal insufficiency (3) back surgery (4) Clostridium difficile colitis (5) Left flank pain (6) Left lower quadrant pain (7) Microscopic hematuria (8) Ulcerative colitis (9) Ulcerative colitis Surgical Problems: (1) History of appendectomy (2) History of knee surgery (3) History of shoulder surgery (4) History of total colectomy Family History Diabetes mellitus FHx: cancer Social History Smoking Status: Never Smoker Alcohol Use: occasionally Drug Use: none Marital Status: Housing Status: lives with family Occupation Status: employed Current/Historical Medications Scheduled Ascorbic Acid (Vitamin C), 500 MG PO QAM Cholecalciferol (Vitamin D), 1,000 UNITS PO QAM Ciprofloxacin Hcl (Cipro), 500 MG PO BID Cyanocobalamin (Vitamin B12), 1,000 MCG PO QAM Duloxetine Hcl (Cymbalta), 60 MG PO QAM Fluconazole (Diflucan), 150 MG PO DIRECTED Multivitamin (Multivitamin), 1 TAB PO DAILY Scheduled PRN Acetaminophen (Acetaminophen Extra Stren), 1,000 MG PO Q6H PRN for Pain or Fever Lorazepam (Ativan), 1 MG PO TID PRN for Anxiety Ondansetron Hcl (Zofran), 8 MG PO Q8 PRN for Nausea Oxycodone Ir (Roxicodone Ir), 10 MG PO Q6H PRN for Pain Zolpidem Tartrate (Ambien), 5 MG PO HS PRN for Sleep Allergies Coded Allergies: Mercaptopurine (Verified Allergy, Severe, SUPPRESSED IMMUNITY, 09/12/16) Morphine (Verified Adverse Reaction, Mild, HEADACHE, 09/12/16) Prochlorperazine (Verified Adverse Reaction, Mild, DYSTONIC, 09/12/16) NSAIDs (Verified Adverse Reaction, Unknown, SEE BELOW, 09/12/16) DOES NOT TAKE D/T COLITIS Physical Exam Vital Signs Date Time Temp Pulse Resp B/P Pulse Ox O2 Delivery O2 Flow Rate FiO2 11/16/16 20:21 81 18 131/84 99 11/16/16 18:58 37.3 88 20 122/72 100 Room Air 11/16/16 16:40 36.9 118 20 112/68 100 Room Air Physical Exam GENERAL: Patient is uncomfortable appearing appearing and in moderate distress. HEENT: No acute trauma, normocephalic atraumatic, patient appears dehydrated, mucous membranes dry, no nasal congestion, no scleral icterus. NECK: No stridor, no adenopathy, no meningismus, trachea is midline. LUNGS: No dyspnea. Clear to auscultation and equal bilaterally. No wheeze, no rhonchi. HEART: Regular rate and rhythm. No murmurs, rubs, gallops appreciated. ABDOMEN: Right lower ostomy, pink, with normal stool. Abdomen is diffusely tender, this is chronic per the patient. Abdomen is otherwise soft, bowel sounds positive, no masses appreciated, no peritonitis. BACK: Nephrostomy tube in left CVA, faint erythema around entry point. No midline tenderness, no CVA tenderness EXTREMITIES: Normal motion all extremities, no cyanosis, no edema. NEUROLOGIC: Alert and oriented, no acute motor or sensory deficits, no focal weakness, cranial nerves grossly intact. SKIN: No rash, no jaundice, no diaphoresis. Medical Decision & Procedures Laboratory Results 11/16/16 17:00 Red Blood Count 4.59, Mean Corpuscular Volume 73.4, Mean Corpuscular Hemoglobin 21.6, Mean Corpuscular Hemoglobin Concent 29.4, Mean Platelet Volume 7.8, Neutrophils (%) (Auto) 80.0, Lymphocytes (%) (Auto) 12.0, Monocytes (%) (Auto) 7.6, Eosinophils (%) (Auto) 0.1, Basophils (%) (Auto) 0.2, Neutrophils # (Auto) 9.75, Lymphocytes # (Auto) 1.46, Monocytes # (Auto) 0.92, Eosinophils # (Auto) 0.01, Basophils # (Auto) 0.02 11/16/16 17:00 Test 11/16/16 17:00 11/16/16 18:10 White Blood Count 12.17 K/uL (4.8-10.8) Red Blood Count 4.59 M/uL (4.7-6.1) Hemoglobin 9.9 g/dL (14.0-18.0) Hematocrit 33.7 % (42-52) Mean Corpuscular Volume 73.4 fL (80-100) Mean Corpuscular Hemoglobin 21.6 pg (25-34) Mean Corpuscular Hemoglobin Concent 29.4 g/dl (32-36) Platelet Count 406 K/uL (130-400) Mean Platelet Volume 7.8 fL (7.4-10.4) Neutrophils (%) (Auto) 80.0 % Lymphocytes (%) (Auto) 12.0 % Monocytes (%) (Auto) 7.6 % Eosinophils (%) (Auto) 0.1 % Basophils (%) (Auto) 0.2 % Neutrophils # (Auto) 9.75 K/uL (1.4-6.5) Lymphocytes # (Auto) 1.46 K/uL (1.2-3.4) Monocytes # (Auto) 0.92 K/uL (0.11-0.59) Eosinophils # (Auto) 0.01 K/uL (0-0.5) Basophils # (Auto) 0.02 K/uL (0-0.2) RDW Standard Deviation 44.5 fL (36.4-46.3) RDW Coefficient of Variation 16.5 % (11.5-14.5) Immature Granulocyte % (Auto) 0.1 % Immature Granulocyte # (Auto) 0.01 K/uL (0.00-0.02) Polychromasia 1+ Hypochromasia PRESENT Microcytosis PRESENT Anion Gap 6.0 mmol/L (3-11) Est Creatinine Clear Calc Drug Dose 93.8 ml/min Estimated GFR () 94.8 Estimated GFR (Non- 81.8 BUN/Creatinine Ratio 10.4 (10-20) Calcium Level 9.1 mg/dl (8.5-10.1) Magnesium Level 2.2 mg/dl (1.8-2.4) Total Bilirubin 0.5 mg/dl (0.2-1) Direct Bilirubin < 0.1 mg/dl (0-0.2) Aspartate Amino Transf (AST/SGOT) 11 U/L (15-37) Alanine Aminotransferase (ALT/SGPT) 21 U/L (12-78) Alkaline Phosphatase 65 U/L (45-117) C-Reactive Protein 6.01 mg/dl (0-0.29) Total Protein 7.9 gm/dl (6.4-8.2) Albumin 3.6 gm/dl (3.4-5.0) Lipase 182 U/L (73-393) Procalcitonin < 0.05 ng/ml (0-0.5) Urine Color YELLOW Urine Appearance CLEAR (CLEAR) Urine pH 7.0 (4.5-7.5) Urine Specific [place] 1.020 (1.000-1.030) Urine Protein TRACE (NEG) Urine Glucose (UA) NEG (NEG) Urine Ketones NEG (NEG) Urine Occult Blood 1+ (NEG) Urine Nitrite NEG (NEG) Urine Bilirubin NEG (NEG) Urine Urobilinogen NEG (NEG) Urine Leukocyte Esterase SMALL (NEG) Urine WBC (Auto) 1-5 /hpf (0-5) Urine RBC (Auto) 5-10 /hpf (0-4) Urine Hyaline Casts (Auto) 5-10 /lpf (0-5) Urine Epithelial Cells (Auto) >30 /lpf (0-5) Urine Bacteria (Auto) NEG (NEG) Urine Renal Epithelial Cells 0-5 /lpf (0-5) Urine Yeast (Auto) PRESENT (NONE PRSENT) Laboratory results as reviewed by me. Medications Administered Medications (Trade) Dose Ordered Sig/Luis Carlos Route Start Time Stop Time Status Last Admin Dose Admin Sodium Chloride (Nss 1000ml) 1,000 ml @ 999 mls/hr Q1H1M STAT IV 11/16/16 18:01 11/16/16 19:01 DC 11/16/16 18:01 999 MLS/HR Hydromorphone HCl (Dilaudid Inj) 1 mg NOW STAT IV 11/16/16 18:01 11/16/16 18:05 DC 11/16/16 18:11 1 MG Ondansetron HCl (Zofran Inj) 4 mg NOW STAT IV 11/16/16 18:01 11/16/16 18:05 DC 11/16/16 18:11 4 MG Hydromorphone HCl 1 mg 1 mg NOW STAT IV 11/16/16 18:41 11/16/16 18:42 DC 11/16/16 18:57 1 MG Sodium Chloride (Nss 1000ml) 1,000 ml @ 999 mls/hr Q1H1M STAT IV 11/16/16 18:41 11/16/16 19:41 DC 11/16/16 18:41 999 MLS/HR Ciprofloxacin (Cipro Tab) 500 mg NOW STAT PO 11/16/16 19:44 11/16/16 19:46 DC 11/16/16 20:18 500 MG Fluconazole (Diflucan Tab) 150 mg NOW ONCE PO 11/16/16 19:45 11/16/16 19:46 DC 11/16/16 20:18 150 MG ED Course 1758: The patient was evaluated in room B10. A complete history and physical exam was performed. 1800: Zofran 4 mg IV, Dilaudid 1 mg IV, NSS 1000 ml @ 999 mls/hr IV. 1840: NSS 1000 ml @ 999 mls/hr IV, Dilaudid 1 mg IV. 3: I reevaluated the patient. He is resting comfortably. 1931: I discussed the patients case with Dr. Murray, [facility]. He will follow up with the patient tomorrow, and feels it is reasonable to start the patient on Cipro and Diflucan. 1943: Cipro Tab 500 mg PO. 1944: Diflucan 150 mg PO. 1999: I reevaluated the patient. He is feeling well. I discussed his results and discharge instructions and he verbalized complete understanding and agreement. Medical Decision The differential diagnoses considered include dehydration, renal failure, infected nephrostomy tube, pyelonephritis, abscess and UTI. 41 yr old male with worsening left flank pain, reported fevers, loss of appetite and some LUQ pain. Complex last few weeks with colon resection with ostomy followed by left nephrostomy due to ureteral transection and renal failure. UA by bladder clear, UA by nephrostomy with yeast. Exam not consistent with sepsis and procalcitonin negative. WBC, CRP both mildly elevated. Does have bump in PLTs as well. Suspect there is early infection going on. He has had many CT scans of abdomen in last few weeks. He does not have peritonitis, nor other acute issue going on. HR much improved with pain meds and fluids. May have a bit of dehydration if not eating well. Reviewing PDMP he has received many narcotics over last few weeks and I do not feel it appropriate for me to write more for him. He was given Dilaudid for pain as he seemed uncomfortable. He has appointment with his surgeon in 36 hours. He was discussed with computing consultant [facility] who agree with abx/diflucan and outpatient f/ u which patient is for as well. Aware he can return at any time if worsening or other concerns. Stable and not septic at time of discharge. [place] Drug Monitoring Program Search Results: patient reviewed within database Drug Monitoring Findings: The patient has multiple Oxycodone prescriptions over the last 2 weeks from multiple providers. Consults Time Called: 1929 Consulting Physician: Dr. Murray, [facility] Returned Call: 1931 I discussed the patients case with Dr. Murray, [facility]. He will follow up with the patient tomorrow, and feels it is reasonable to start the patient on Cipro and Diflucan. Impression Primary Impression: Left flank pain Additional Impressions: Dehydration Yeast UTI Scribe Attestation The scribe's documentation has been prepared under my direction and personally reviewed by me in its entirety. I confirm that the note above accurately reflects all work, treatment, procedures, and medical decision making performed by me. Departure Information Dispostion Home / Self-Care Prescriptions Ciprofloxacin Hcl (CIPRO) 500 Mg Tab 500 MG PO BID, #14 TAB Prov: Clark Padgett M.D. 11/16/16 Fluconazole (DIFLUCAN) 150 Mg Tab 150 MG PO DIRECTED for 1 Day, #1 TAB Take at end of course of antibiotic Prov: Clark Padgett M.D. 11/16/16 Referrals Oscar Ruiz M.D. (PCP) Patient Instructions My [facility] Additional Instructions Return if worsening pain, fevers, vomiting, or other concerns. You will follow up with your Surgeon in 2 days, and they will call you tomorrow. We are always here to help. Keep well hydrated. You have received a narcotic pain medication. These medications may cause drowsiness and should not be used with other sedative medications. Do not drive , drink alcohol, perform dangerous activities, nor make important decisions after taking these medications. intermodal dispatcher use or inappropriate use may lead to addiction. Problem Qualifiers
[2016-11-16 18:18] LABS: BASO % 0.2 %; BASO ABS # 0.02 K/uL (0-0.2); EOS % 0.1 %; HEMATOCRIT 33.7 % (42-52); IG% 0.1 %; LYMPH ABS # 1.46 K/uL (1.2-3.4); MEAN CELL VOLUME 73.4 fL (80-100); MEAN CORPUSCULAR HEMOGLOBIN 21.6 pg (25-34); MEAN CORPUSCULAR HGB CONC 29.4 g/dl (32-36); MEAN PLATELET VOLUME 7.8 fL (7.4-10.4); MONO % 7.6 %; PLATELET COUNT 406 K/uL (130-400); RED BLOOD COUNT 4.59 M/uL (4.7-6.1); WHITE BLOOD COUNT 12.17 K/uL (4.8-10.8)
[2016-11-16 18:26] LABS: BUN/CREATININE RATIO 10.4 (10-20); C-REACTIVE PROTEIN 6.01 mg/dl (0-0.29); CALCIUM 9.1 mg/dl (8.5-10.1); CREATININE 1.1 mg/dl (0.60-1.40); MAGNESIUM 2.2 mg/dl (1.8-2.4); POTASSIUM 3.6 mmol/L (3.5-5.1)
[2016-11-16 18:39] LABS: URINE APPEARANCE CLEAR (CLEAR); URINE BILIRUBIN NEG (NEG); URINE COLOR YELLOW; URINE EPITHELIAL CELL AUTO >30 /lpf (0-5); URINE NITRITE NEG (NEG); UROBILINOGEN NEG (NEG); ZZUR CULT IF INDIC CLEAN CATCH NO
[2016-11-16 18:40] LABS: MANUAL MICROSCOPIC REQUIRED? NO; REVIEW REQ? YES; URINE APPEARANCE CLEAR (CLEAR); URINE BILIRUBIN NEG (NEG); URINE COLOR YELLOW; URINE NITRITE NEG (NEG); URINE SPECIFIC GRAVITY 1.021 (1.000-1.030); UROBILINOGEN NEG (NEG); ZZUR CULT IF INDIC CLEAN CATCH NO
[2016-11-16 18:41] LABS: MANUAL MICROSCOPIC REQUIRED? NO; REVIEW REQ? NO
[2016-11-16 18:50] LABS: COMPLETE YES; HYPOCHROMIA PRESENT; MICROCYTOSIS PRESENT; POLYCHROMASIA 1+
[2016-11-16 18:58] VITALS: TEMP 37.3
[2016-11-16 19:13] LABS: ALKALINE PHOSPHATASE 65 U/L (45-117); ALT/SGPT 21 U/L (12-78); AST/SGOT 11 U/L (15-37)
[2016-11-16] MEDS ORDERED: CIPROFLOXACIN 500 MG TAB PO STA (19:44)
[2016-11-16] MEDS ORDERED: FLUCONAZOLE 50 MG TAB PO ONE (19:45)
[2016-11-16] MEDS ORDERED: CIPR-255 PO (19:47)
[2016-11-16] MEDS ORDERED: FLUC150T54 PO (19:47)
[2016-11-16 20:21] VITALS: BP 131/84; PULSE 81; O2SAT 99
== END 2016-11-16 20:22 | disposition home or self-care (01) ==
LOC: C.EDB 16:38
DX: R10.30 Lower abdominal pain, unspecified (principal); E86.0 Dehydration; N39.0 Urinary tract infection, site not specified; Z87.19 Personal history of other diseases of the digestive system; Z98.890 Other specified postprocedural states; Z79.899 Other long term (current) drug therapy; Z88.5 Allergy status to narcotic agent; Z88.8 Allergy status to other drugs, medicaments and biological substances; Z83.3 Family history of diabetes mellitus; Z80.9 Family history of malignant neoplasm, unspecified

== ENCOUNTER → 2016-12-03 | Outpatient (CLI) | payer BC ==
[~2016-12-03] MED LIST changes: +CIPR-255 PO; +CLB/200 PO; -ENOX40IN SQ; +ONDA4TAB10 SL; +OXYC-292 PO; +ZOLP10TA6 PO
[2016-12-03 17:19] LABS: BASO % 0.2 %; BASO ABS # 0.02 K/uL (0-0.2); EOS % 2.8 %; HEMATOCRIT 34.1 % (42-52); IG% 0.1 %; LYMPH % 22.2 %; LYMPH ABS # 1.81 K/uL (1.2-3.4); MEAN CELL VOLUME 71.8 fL (80-100); MEAN CORPUSCULAR HEMOGLOBIN 21.1 pg (25-34); MEAN CORPUSCULAR HGB CONC 29.3 g/dl (32-36); MEAN PLATELET VOLUME 8.1 fL (7.4-10.4); MONO % 6.1 %; NEUT % 68.6 %; PLATELET COUNT 244 K/uL (130-400); RED BLOOD COUNT 4.75 M/uL (4.7-6.1); WHITE BLOOD COUNT 8.15 K/uL (4.8-10.8)
[2016-12-03 17:46] LABS: COMPLETE YES; MICROCYTOSIS PRESENT
[2016-12-03 18:05] LABS: ALT/SGPT 19 U/L (12-78); BLOOD UREA NITROGEN 12 mg/dl (7-18); BUN/CREATININE RATIO 10.5 (10-20); CARBON DIOXIDE 26 mmol/L (21-32); CHLORIDE 106 mmol/L (98-107); GLUCOSE 93 mg/dl (70-99); SODIUM 141 mmol/L (136-145)
[2016-12-03 18:08] LABS: ALB/GLOB RATIO 0.9 (0.9-2); ALKALINE PHOSPHATASE 60 U/L (45-117); AST/SGOT 13 U/L (15-37)
== END | disposition home or self-care (01) ==
LOC: C.LABBC 14:07
PROVIDERS: ATTEND Physician Assistant Medical
DX: R73.9 Hyperglycemia, unspecified (principal); R10.9 Unspecified abdominal pain

== ENCOUNTER → 2016-12-09 | Outpatient (CLI) | payer BC ==
[~2016-12-09] MED LIST changes: +OPTIRAY 320 IV PRN
--- NOTE | 2016-12-09 16:56 | DIAGNOSTIC IMAGING REPORT ---
CT OF THE ABDOMEN AND PELVIS WITH AND WITHOUT CONTRAST HEMATURIA PROTOCOL CLINICAL HISTORY: Left ureteral injury. COMPARISON STUDY: CT of the abdomen and pelvis October 28, 2016. TECHNIQUE: Unenhanced and split bolus phase imaging of the abdomen and pelvis was performed. In addition, multiple delayed images through the pelvis were obtained up to 30 minutes following contrast administration for improved ureteral opacification. Injection of 119 cc Optiray 320 IV was uneventful. FINDINGS: Lung bases are clear. There are multiple cysts within the liver. Multiple enhancing hepatic lesions were present on earlier exams and likely reflect hemangiomas. These are benign given relative stability. The largest is a 2 cm right hepatic lobe lesion. Mild splenomegaly is unchanged. The adrenal glands and pancreas are normal. There are findings consistent with a subtotal colectomy. There is no evidence for bowel obstruction. There is minimal left lower quadrant omental infiltration. However, omental infiltration has markedly improved since prior exam of October 28, 2016. Extensive ascites shown on prior exam has resolved. There is no pneumatosis, free air or portal venous gas. There has been interval placement of a left sided percutaneous nephrostomy. There is mild left collecting system dilatation. There is mild wall thickening of the proximal to mid left ureter. No contrast extravasation is identified from the ureter however the left ureter is only opacified to the level of the left iliac vessels. No ureteral filling opacification beyond this level is present despite 30 minute delayed phase imaging. There is equivocal minimal contrast within the distal left ureter which is felt to likely be artifactual The right collecting system and ureter is normal. There is a 1.5 cm cyst within the lower pole of the right kidney. IMPRESSION: 1. Interval placement of a left percutaneous nephrostomy. Mild left collecting system dilatation and mild urothelial thickening of the left ureter. Left ureter opacified to the level of the left iliac vessels with no definite ureteral opacification distal to this level despite 30 minute delayed phase imaging. Equivocal trace ureteral contrast distal to this level which precludes evaluation of this portion of the ureter. The integrity of the distal left ureter cannot be assessed on this exam and the findings raise the possibility of at least a partial obstruction at the level of the left iliac vessels. 2. Interval resolution of ascites shown on prior CT. Mild residual left lower quadrant omental infiltration is nonspecific but improved since prior exam. 3. Status post subtotal colectomy. No bowel obstruction. Electronically signed by: Timbo Stokes M.D. 12/09/2016 4:55 PM Dictated Date/Time: 12/09/2016 3:14 PM
== END | disposition home or self-care (01) ==
LOC: C.CTS 14:12
PROVIDERS: ATTEND Nurse Practitioner
DX: S37.30XA Unspecified injury of urethra, initial encounter (principal); X58.XXXA Exposure to other specified factors, initial encounter

== ENCOUNTER 2016-12-14 11:54 | Emergency (ER) | payer BC ==
[~2016-12-14] VITALS: Ht 190.5 cm; Wt 77.8 kg
[~2016-12-14 11:54] MED LIST changes: -CLB/200 PO; -ONDA4TAB10 SL; -OPTIRAY 320 IV PRN; -OXYC-292 PO; -ZOLP10TA6 PO
[2016-12-14 11:56] VITALS: TEMP 36.8; Ht 190.5 cm; Wt 77.8 kg
[2016-12-14] MEDS ORDERED: CLB/200 PO (12:09)
[2016-12-14] MEDS ORDERED: PROMETHAZINE HCL INJ 25 MG/ML 1 ML VIAL IV STA (12:28)
[2016-12-14] MEDS ORDERED: SODIUM CHLORIDE 0.9% 1000ML 1,000 ML IV STA (12:28)
[2016-12-14 12:38] LABS: BASO % 0.4 %; BASO ABS # 0.02 K/uL (0-0.2); EOS % 2.5 %; HEMATOCRIT 36.3 % (42-52); IG% 0.2 %; LYMPH % 26.5 %; LYMPH ABS # 1.18 K/uL (1.2-3.4); MEAN CELL VOLUME 70.2 fL (80-100); MEAN CORPUSCULAR HEMOGLOBIN 20.5 pg (25-34); MEAN CORPUSCULAR HGB CONC 29.2 g/dl (32-36); MEAN PLATELET VOLUME 7.8 fL (7.4-10.4); NEUT % 63.4 %; PLATELET COUNT 203 K/uL (130-400); RED BLOOD COUNT 5.17 M/uL (4.7-6.1); WHITE BLOOD COUNT 4.46 K/uL (4.8-10.8)
[2016-12-14] MEDS ORDERED: ONDANSETRON INJ 2 MG/ML 2 ML VIAL IV STA (12:38)
[2016-12-14] MEDS: HYDROmorphone INJ 2 MG/ML SYR/VIAL IV PRN ×2 (12:46→13:49)
[2016-12-14 12:55] LABS: BUN/CREATININE RATIO 7.7 (10-20); CALCIUM 8.7 mg/dl (8.5-10.1); CREATININE 1.2 mg/dl (0.60-1.40); POTASSIUM 3.7 mmol/L (3.5-5.1)
[2016-12-14 12:57] LABS: ALB/GLOB RATIO 0.9 (0.9-2)
[2016-12-14 13:21] LABS: COMPLETE YES; MICROCYTOSIS PRESENT
[2016-12-14 13:23] LABS: URINE APPEARANCE CLEAR (CLEAR); URINE BILIRUBIN NEG (NEG); URINE COLOR YELLOW; URINE EPITHELIAL CELL AUTO 20-30 /lpf (0-5); URINE NITRITE NEG (NEG); URINE PH 7.5 (4.5-7.5); URINE SPECIFIC GRAVITY 1.015 (1.000-1.030); UROBILINOGEN NEG (NEG); ZZURINE CULT IF INDIC CATH NO
[2016-12-14 13:27] LABS: MANUAL MICROSCOPIC REQUIRED? NO; REVIEW REQ? NO
[2016-12-14 13:28] LABS: SULFASALICYLIC ACID NEG (NEG)
--- NOTE | 2016-12-14 13:55 | DIAGNOSTIC IMAGING REPORT ---
CHEST AND ABDOMEN 2 VIEWS HISTORY: Generalized abdominal pain. Vomiting. Fever. COMPARISON: Chest 10/26/2016. Abdomen and pelvis CT 12/09/2016. FINDINGS: Bilateral calcified granulomas are again noted. No new focal lung consolidations. No pleural effusions. No pneumothorax. The heart is normal in size. No pneumoperitoneum. No pneumatosis. There is a left-sided percutaneous nephrostomy tube is again noted. No renal or ureteral calculi. Suture material at the rectosigmoid junction. No dilated loops of bowel to suggest an obstruction. IMPRESSION: 1. No acute cardiopulmonary process. 2. No evidence for bowel obstruction. 3. Left-sided percutaneous nephrostomy tube. Electronically signed by: Sebas Craft M.D. 12/14/2016 1:54 PM Dictated Date/Time: 12/14/2016 1:52 PM
[2016-12-14 13:58] LABS: URINE APPEARANCE CLEAR (CLEAR); URINE BILIRUBIN NEG (NEG); URINE COLOR YELLOW; URINE NITRITE NEG (NEG); URINE SPECIFIC GRAVITY 1.021 (1.000-1.030); UROBILINOGEN NEG (NEG); ZZUR CULT IF INDIC CLEAN CATCH NO
[2016-12-14 14:10] LABS: MANUAL MICROSCOPIC REQUIRED? NO; REVIEW REQ? NO
[2016-12-14] MEDS ORDERED: ONDA4TAB10 SL (14:35)
[2016-12-14] MEDS ORDERED: OXYC1TAB3 PO (14:35)
[2016-12-14] MEDS ORDERED: ONDANSETRON HOME PACK 4MG OD TAB PO ONE (14:45)
--- NOTE | 2016-12-14 14:56 | EMERGENCY ROOM VISIT NOTE ---
History Report prepared by Adriano: Adalberto Delgado Under the Supervision of: Dr. Esa Diego M.D. First contact with patient: 12:24 Chief Complaint: FLANK PAIN Stated Complaint: KIDNEY INJURY - BACK PAIN,VOMITING,ABD PAIN,FEVER History of Present Illness The patient is a 41 year old male who presents to the Emergency Room with complaints of constant left-sided flank pain beginning 48 hours ago. He currently rates his discomfort a 7/10 in severity. The patient states that his pain currently radiates to his abdomen, and he is experiencing nausea, vomiting , intermittent fevers ranging from 99-101.2 degrees, and chills. He reports that he was at [facility] this morning and was told to come here. The patient notes that his urostomy and colostomy have been draining normally, but he has had a decrease in urinary frequency. He reports that it feels like his body is not absorbing anything; he can sometimes notice pills that go straight into his colostomy after he takes them. 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 The patient reports that he had a preoperational CT scan three days ago. He notes that he typically takes two different types of Oxycodone for his pain. Source of History: patient Onset: 48 hours ago Position: other (left-sided flank) Symptom Intensity: 7/10 Timing: constant Associated Symptoms: + fevers, + chills, + nausea, + vomiting, + abdominal pain, + urinary symptoms Review of Systems See HPI for pertinent positives & negatives. A total of 10 systems reviewed and were otherwise negative. Past Medical & Surgical Medical Problems: (1) Abdominal pain (2) Acute renal insufficiency (3) back surgery (4) Clostridium difficile colitis (5) Left flank pain (6) Left lower quadrant pain (7) Microscopic hematuria (8) Ulcerative colitis (9) Ulcerative colitis Surgical Problems: (1) History of appendectomy (2) History of knee surgery (3) History of shoulder surgery (4) History of total colectomy Family History Diabetes mellitus FHx: cancer Social History Smoking Status: Never Smoker Alcohol Use: occasionally Drug Use: none Marital Status: Housing Status: lives with family Occupation Status: employed Current/Historical Medications Scheduled Ascorbic Acid (Vitamin C), 500 MG PO QAM Celecoxib (CeleBREX), 200 MG PO Q12 Cholecalciferol (Vitamin D), 1,000 UNITS PO QAM Cyanocobalamin (Vitamin B12), 1,000 MCG PO QAM Duloxetine Hcl (Cymbalta), 60 MG PO QAM Multivitamin (Multivitamin), 1 TAB PO DAILY Ondasetron Odt (Zofran Odt), 4 MG SL Q6H Scheduled PRN Acetaminophen (Acetaminophen Extra Stren), 1,000 MG PO Q6H PRN for Pain or Fever Lorazepam (Ativan), 1 MG PO TID PRN for Anxiety Ondansetron Hcl (Zofran), 8 MG PO Q8 PRN for Nausea Oxycodone Ir (Roxicodone Ir), 10 MG PO Q6H PRN for Pain Oxycodone Ir (Roxicodone Ir), 1-2 TAB PO Q4H PRN for Pain Zolpidem Tartrate (Ambien), 5 MG PO HS PRN for Sleep Allergies Coded Allergies: Mercaptopurine (Verified Allergy, Severe, SUPPRESSED IMMUNITY, 12/14/16) Morphine (Verified Adverse Reaction, Mild, HEADACHE, 12/14/16) Prochlorperazine (Verified Adverse Reaction, Mild, DYSTONIC, 12/14/16) NSAIDs (Verified Adverse Reaction, Unknown, SEE BELOW, 12/14/16) DOES NOT TAKE D/T COLITIS Uncoded Allergies: PHENERGEN (Allergy, Unknown, dystonic, 12/14/16) Physical Exam Vital Signs Date Time Temp Pulse Resp B/P (MAP) Pulse Ox O2 Delivery O2 Flow Rate FiO2 12/14/16 15:04 91 18 120/82 99 12/14/16 13:36 64 18 126/80 100 Room Air 12/14/16 11:56 36.8 108 16 124/85 95 Room Air Physical Exam GENERAL: Patient is in no acute distress. HEENT: No acute trauma, normocephalic atraumatic, mucous membranes moist, no nasal congestion, no scleral icterus. NECK: No stridor, no adenopathy, no meningismus, trachea is midline. LUNGS: Clear to auscultation bilaterally, no wheeze, no rhonchi, breath sounds equal. HEART: Without murmurs gallops or rubs, regular rate and rhythm. ABDOMEN: Colostomy with stool, mildly diffusely tender, but soft, bowel sounds positive, no hernias, no peritonitis. BACK: Left side percutaneous urostomy present with urine in bag, no signs of cellulitis at insertion sight EXTREMITIES: No cyanosis or edema, full range of motion of all the joints without pain or difficulty, no signs for acute trauma. NEUROLOGIC: Oriented x 3, no acute motor or sensory deficits, no focal weakness. SKIN: No rash, no jaundice, no diaphoresis. Medical Decision & Procedures ER Provider Diagnostic Interpretation: X-ray results as stated below per interpretation by me and the radiologist: CHEST AND ABDOMEN 2 VIEWS HISTORY: Generalized abdominal pain. Vomiting. Fever. COMPARISON: Chest 10/26/2016. Abdomen and pelvis CT 12/09/2016. FINDINGS: Bilateral calcified granulomas are again noted. No new focal lung consolidations. No pleural effusions. No pneumothorax. The heart is normal in size. No pneumoperitoneum. No pneumatosis. There is a left-sided percutaneous nephrostomy tube is again noted. No renal or ureteral calculi. Suture material at the rectosigmoid junction. No dilated loops of bowel to suggest an obstruction. IMPRESSION: 1. No acute cardiopulmonary process. 2. No evidence for bowel obstruction. 3. Left-sided percutaneous nephrostomy tube. Electronically signed by: Sebas Craft M.D. 12/14/2016 1:54 PM Dictated Date/Time: 12/14/2016 1:52 PM Laboratory Results 12/14/16 12:30 Red Blood Count 5.17, Mean Corpuscular Volume 70.2, Mean Corpuscular Hemoglobin 20.5, Mean Corpuscular Hemoglobin Concent 29.2, Mean Platelet Volume 7.8, Neutrophils (%) (Auto) 63.4, Lymphocytes (%) (Auto) 26.5, Monocytes (%) (Auto) 7.0, Eosinophils (%) (Auto) 2.5, Basophils (%) (Auto) 0.4, Neutrophils # (Auto) 2.83, Lymphocytes # (Auto) 1.18, Monocytes # (Auto) 0.31, Eosinophils # (Auto) 0.11, Basophils # (Auto) 0.02 12/14/16 12:30 Test 12/14/16 12:30 12/14/16 12:45 12/14/16 13:40 White Blood Count 4.46 K/uL (4.8-10.8) Red Blood Count 5.17 M/uL (4.7-6.1) Hemoglobin 10.6 g/dL (14.0-18.0) Hematocrit 36.3 % (42-52) Mean Corpuscular Volume 70.2 fL (80-100) Mean Corpuscular Hemoglobin 20.5 pg (25-34) Mean Corpuscular Hemoglobin Concent 29.2 g/dl (32-36) Platelet Count 203 K/uL (130-400) Mean Platelet Volume 7.8 fL (7.4-10.4) Neutrophils (%) (Auto) 63.4 % Lymphocytes (%) (Auto) 26.5 % Monocytes (%) (Auto) 7.0 % Eosinophils (%) (Auto) 2.5 % Basophils (%) (Auto) 0.4 % Neutrophils # (Auto) 2.83 K/uL (1.4-6.5) Lymphocytes # (Auto) 1.18 K/uL (1.2-3.4) Monocytes # (Auto) 0.31 K/uL (0.11-0.59) Eosinophils # (Auto) 0.11 K/uL (0-0.5) Basophils # (Auto) 0.02 K/uL (0-0.2) RDW Standard Deviation 40.9 fL (36.4-46.3) RDW Coefficient of Variation 16.0 % (11.5-14.5) Immature Granulocyte % (Auto) 0.2 % Immature Granulocyte # (Auto) 0.01 K/uL (0.00-0.02) Microcytosis PRESENT Anion Gap 10.0 mmol/L (3-11) Est Creatinine Clear Calc Drug Dose 87.3 ml/min Estimated GFR () 85.3 Estimated GFR (Non- 73.6 BUN/Creatinine Ratio 7.7 (10-20) Calcium Level 8.7 mg/dl (8.5-10.1) Total Bilirubin 0.4 mg/dl (0.2-1) Aspartate Amino Transf (AST/SGOT) 13 U/L (15-37) Alanine Aminotransferase (ALT/SGPT) 20 U/L (12-78) Alkaline Phosphatase 62 U/L (45-117) Total Protein 7.6 gm/dl (6.4-8.2) Albumin 3.7 gm/dl (3.4-5.0) Globulin 3.9 gm/dl (2.5-4.0) Albumin/Globulin Ratio 0.9 (0.9-2) Lipase 166 U/L (73-393) Lactic Acid Level 1.0 mmol/L (0.4-2.0) Urine Color YELLOW Urine Appearance CLEAR (CLEAR) Urine pH 7.0 (4.5-7.5) Urine Specific [place] 1.021 (1.000-1.030) Urine Protein NEG (NEG) Urine Glucose (UA) NEG (NEG) Urine Ketones NEG (NEG) Urine Occult Blood TRACE (NEG) Urine Nitrite NEG (NEG) Urine Bilirubin NEG (NEG) Urine Urobilinogen NEG (NEG) Urine Leukocyte Esterase NEG (NEG) Urine WBC (Auto) 1-5 /hpf (0-5) Urine RBC (Auto) 0-4 /hpf (0-4) Urine Hyaline Casts (Auto) 1-5 /lpf (0-5) Urine Epithelial Cells (Auto) 5-10 /lpf (0-5) Urine Bacteria (Auto) NEG (NEG) Laboratory results reviewed by me. Medications Administered Medications (Trade) Dose Ordered Sig/Luis Carlos Route Start Time Stop Time Status Last Admin Dose Admin Sodium Chloride 1,000 ml @ 200 mls/hr Q5H STAT IV 12/14/16 12:28 12/14/16 15:09 DC 12/14/16 12:46 200 MLS/HR Hydromorphone HCl (Dilaudid Inj) 1 mg Q30M PRN IV 12/14/16 12:30 12/14/16 15:09 DC 12/14/16 13:49 1 MG Ondansetron HCl (Zofran Inj) 4 mg NOW STAT IV 12/14/16 12:38 12/14/16 12:39 DC 12/14/16 12:46 4 MG Ondansetron HCl (ZOFRAN ODT 4MG Home Pack) 1 homepack UD ONCE PO 12/14/16 14:45 12/14/16 14:46 DC 12/14/16 14:45 1 HOMEPACK ED Course 1228: Ordered Sodium Chloride 1000 ml @ 200 mls/hr IV 1230: Ordered Dilaudid Inj 1mg IV 1231: The patient was evaluated in room B02. A complete history and physical exam was performed. 1238: Ordered Zofran Inj 4mg IV 1420: Reevaluated the patient. Discussed results and discharge instructions: he verbalized understanding and agreement. The patient is ready for discharge. 1445: Ordered Ondansetron HCl 1 homepack PO Medical Decision Differential diagnosis includes: viral infection, pyelonephritis, urinary tract infection, dehydration, bowel obstruction, anemia, electrolyte imbalance Medication Reconciliation: I attest that I have personally reviewed the patient' s current medication list. Blood Pressure Screening: Patient was found to have normal blood pressure on screening and does not require follow-up. There is no leukocytosis or concerning anemia. No significant electrolyte abnormality, kidney failure, hepatitis. No evidence for pancreatitis. Lactic acid level is not elevated making sepsis or bowel ischemia less likely. Urinalysis from a clean catch does not show infection. Urinalysis from his urostomy site does not show infection. Obstruction series shows the urostomy to be in position, there was no bowel obstruction or pneumonia. The patient received IV Dilaudid, IV Zofran and IV saline, he feels significantly improved. No further nausea or vomiting. The patient is feeling improved, I do think he can be discharged. He will be discharged on his oxycodone and Zofran as he has taken in the past. A bland diet was suggested, if worsening, he can return. His illness may be viral as there was no bacterial source found today. [place] Drug Monitoring Program Search Results: patient reviewed within database, no issues identified Drug Monitoring Findings: He received prescriptions of Oxycodone and OxyContin. Impression Primary Impression: Nausea & vomiting Additional Impression: Left flank pain Scribe Attestation The scribe's documentation has been prepared under my direction and personally reviewed by me in its entirety. I confirm that the note above accurately reflects all work, treatment, procedures, and medical decision making performed by me. Departure Information Dispostion Home / Self-Care Prescriptions Oxycodone Ir (Roxicodone Ir) 5 Mg Tab 1-2 TAB PO Q4H Y for Pain, #12 TAB Prov: Esa Diego M.D. 12/14/16 Ondasetron Odt (ZOFRAN ODT) 4 Mg Tab 4 MG SL Q6H for Nausea, #15 TAB Prov: Esa Diego M.D. 12/14/16 Referrals Oscar Ruiz M.D. (PCP) Forms HOME CARE DOCUMENTATION FORM, IMPORTANT VISIT INFORMATION Patient Instructions My [facility] [place] Additional Instructions bland diet--crackers, soup, toast, gatorade zofran 1-2 tab every 6 hours for nausea rest pain meds as before return for worsening symptoms testing today all looked o Problem Qualifiers
[2016-12-14 15:04] VITALS: BP 120/82; PULSE 91; O2SAT 99
== END 2016-12-14 15:05 | disposition home or self-care (01) ==
LOC: C.EDB 11:56
DX: R11.2 Nausea with vomiting, unspecified (principal); R10.30 Lower abdominal pain, unspecified; Z87.19 Personal history of other diseases of the digestive system; Z90.49 Acquired absence of other specified parts of digestive tract; Z98.890 Other specified postprocedural states; Z79.899 Other long term (current) drug therapy; Z88.5 Allergy status to narcotic agent; Z88.8 Allergy status to other drugs, medicaments and biological substances; Z83.3 Family history of diabetes mellitus; Z80.9 Family history of malignant neoplasm, unspecified

== ENCOUNTER → 2016-12-15 | Outpatient (CLI) | payer BC ==
[~2016-12-15] MED LIST changes: +CLB/200 PO; +ONDA4TAB10 SL; +OXYC-292 PO; +ZOLP10TA6 PO
== END | disposition home or self-care (01) ==
LOC: C.LABBC 14:05
PROVIDERS: ATTEND Physician Assistant Medical
DX: Z93.6 Other artificial openings of urinary tract status (principal)

== ENCOUNTER → 2016-12-19 | Outpatient (CLI) | payer BC ==
[~2016-12-19] MED LIST changes: -CIPR-255 PO
[2016-12-19 16:52] LABS: BASO % 0.3 %; BASO ABS # 0.02 K/uL (0-0.2); HEMATOCRIT 35.1 % (42-52); IG% 0.2 %; MEAN CELL VOLUME 71.3 fL (80-100); MEAN CORPUSCULAR HEMOGLOBIN 20.7 pg (25-34); MEAN CORPUSCULAR HGB CONC 29.1 g/dl (32-36); MEAN PLATELET VOLUME 8.2 fL (7.4-10.4); MONO % 6.1 %; NEUT % 67.4 %; PLATELET COUNT 241 K/uL (130-400); RED BLOOD COUNT 4.92 M/uL (4.7-6.1); WHITE BLOOD COUNT 6.08 K/uL (4.8-10.8)
[2016-12-19 16:58] LABS: BLOOD UREA NITROGEN 11 mg/dl (7-18); BUN/CREATININE RATIO 9.8 (10-20); CALCIUM 8.6 mg/dl (8.5-10.1); CARBON DIOXIDE 27 mmol/L (21-32); CHLORIDE 109 mmol/L (98-107); GLUCOSE 103 mg/dl (70-99); POTASSIUM 3.9 mmol/L (3.5-5.1); SODIUM 143 mmol/L (136-145)
[2016-12-19 17:15] LABS: ANISOCYTOSIS PRESENT; COMPLETE YES; POLYCHROMASIA 1+
== END | disposition home or self-care (01) ==
LOC: C.LABBC 12:28
PROVIDERS: ATTEND Physician Assistant Medical
DX: R10.9 Unspecified abdominal pain (principal); R53.83 Other fatigue

== ENCOUNTER 2017-02-14 16:41 | Emergency (ER) | payer BC ==
[~2017-02-14] VITALS: Ht 190.5 cm; Wt 79.9 kg
[~2017-02-14 16:41] MED LIST changes: -OXYC-292 PO; -ZOLP10TA6 PO
[2017-02-14 16:49] VITALS: TEMP 36.6; Ht 190.5 cm; Wt 79.9 kg
[2017-02-14] MEDS ORDERED: ONDANSETRON INJ 2 MG/ML 2 ML VIAL IV STA (17:13)
[2017-02-14] MEDS ORDERED: SODIUM CHLORIDE 0.9% 1000ML 1,000 ML IV STA (17:13)
[2017-02-14] MEDS ORDERED: OXYC-292 PO (17:28)
[2017-02-14] MEDS ORDERED: ZOLP10TA6 PO (17:28)
[2017-02-14 17:31] LABS: BASO % 0.3 %; BASO ABS # 0.02 K/uL (0-0.2); HEMATOCRIT 34.5 % (42-52); IG% 0.2 %; LYMPH % 26.3 %; LYMPH ABS # 1.53 K/uL (1.2-3.4); MEAN CELL VOLUME 68.5 fL (80-100); MEAN CORPUSCULAR HEMOGLOBIN 20.2 pg (25-34); MEAN CORPUSCULAR HGB CONC 29.6 g/dl (32-36); MEAN PLATELET VOLUME 7.7 fL (7.4-10.4); MONO % 5.5 %; NEUT % 66.7 %; PLATELET COUNT 190 K/uL (130-400); RED BLOOD COUNT 5.04 M/uL (4.7-6.1); WHITE BLOOD COUNT 5.81 K/uL (4.8-10.8)
[2017-02-14 17:33] LABS: MANUAL MICROSCOPIC REQUIRED? NO; REVIEW REQ? NO; URINE APPEARANCE CLEAR (CLEAR); URINE BILIRUBIN NEG (NEG); URINE COLOR YELLOW; URINE EPITHELIAL CELL AUTO 0-5 /lpf (0-5); URINE NITRITE NEG (NEG); URINE SPECIFIC GRAVITY 1.016 (1.000-1.030); UROBILINOGEN NEG (NEG); ZZUR CULT IF INDIC CLEAN CATCH NO
[2017-02-14 17:46] LABS: CALCIUM 8.7 mg/dl (8.5-10.1); CREATININE 1.1 mg/dl (0.60-1.40); POTASSIUM 3.5 mmol/L (3.5-5.1)
[2017-02-14 17:49] LABS: ALB/GLOB RATIO 0.9 (0.9-2)
[2017-02-14] MEDS ORDERED: HYDROmorphone INJ 1 MG/ML SYR IV STA (17:54)
[2017-02-14 17:57] LABS: COMPLETE YES; MICROCYTOSIS PRESENT
--- NOTE | 2017-02-14 18:25 | DIAGNOSTIC IMAGING REPORT ---
CT OF THE ABDOMEN AND PELVIS WITHOUT CONTRAST, STONE PROTOCOL CLINICAL HISTORY: Right flank pain. Recent reattachment of left ureter. COMPARISON STUDY: CT of the abdomen and pelvis December 09, 2016. TECHNIQUE: Helical axial images of the abdomen and pelvis were obtained without IV or oral contrast according to renal stone protocol. A dose lowering technique was utilized adhering to the principles of ALARA. FINDINGS: Several water attenuation hepatic lesions reflect cysts. Intermediate attenuation hepatic lesions were shown to represent hemangiomas on prior imaging studies. The spleen, adrenal glands and pancreas are unremarkable on this unenhanced exam. Note is made of a 1.6 cm water attenuation lesion within the lower pole pg the right kidney which were shown to reflect a cyst on prior imaging studies. There is no hydronephrosis or hydroureter. No renal, ureteral or bladder calculi are identified. There has been interval removal of the left percutaneous nephrostomy since exam of December 09, 2016. There are interval postoperative findings involving the distal left ureter which suggest re-implantation. The left aspect of the bladder dome appears somewhat tethered. This is likely postsurgical. There is mild infiltration adjacent to the distal left ureter which is likely postsurgical. There is no fluid collection to suggest an abscess. Postoperative evaluation is suboptimal on this unenhanced exam. There are findings consistent with a subtotal colectomy. There is no evidence for a bowel obstruction. A right lower quadrant ostomy is noted. There is no pneumatosis, free air or portal venous gas. No suspicious osseous lesions are identified. IMPRESSION: 1. No urinary calculi or hydronephrosis. 2. Interval removal of the left percutaneous nephrostomy and findings suggestive of reimplantation of the distal left ureter. Findings suboptimally assessed on this unenhanced exam but mild infiltration within the operative bed is likely postsurgical. No fluid collection to suggest abscess. No upstream dilatation. Mild left pelvicalyceal urothelial thickening is nonspecific and could be correlated with urinalysis. 3. Multiple hepatic cysts and hemangiomas as shown on prior studies. 2. Status post subtotal colectomy. No bowel obstruction. Electronically signed by: Timbo Stokes M.D. 02/14/2017 6:24 PM Dictated Date/Time: 02/14/2017 6:11 PM
[2017-02-14] MEDS ORDERED: HYDROmorphone INJ 0.5 MG/0.5 ML SYR IV STA (18:52)
[2017-02-14] MEDS ORDERED: OXYC1TAB3 PO (19:05)
--- NOTE | 2017-02-14 19:07 | EMERGENCY ROOM VISIT NOTE ---
History First contact with patient: 16:56 Chief Complaint: FLANK PAIN Stated Complaint: KIDNEY PAIN History of Present Illness The patient is a 41 year old male who presents to the Emergency Room with complaints of right flank pain. The patient states that he has had pain in the right flank gradually worsening over the past few hours. He reports a history of kidney stones. The patient has a history of colectomy secondary to ulcerative colitis. He reports that during the initial colectomy, they nicked the ureter and he had a ureter reattachment 6 weeks ago. He was seen at [facility] yesterday and states that the ureter is working well. He reports he had blood in his urine this morning, but he initially assumed this was due to being catheterized yesterday. He has been nauseous but denies vomiting. He rates his discomfort a 7/10 and states it is constant. He states he has been taking oxycodone since his surgery, but has had to take more frequent recently since the pain started. He denies fevers/chills, abdominal pain, chest pain, shortness of breath. Review of Systems A complete 10 point review of systems was reviewed with the patient with pertinent positives and negatives as per history of present illness. All else were negative. Past Medical/Surgical History Medical Problems: (1) Abdominal pain (2) Acute renal insufficiency (3) back surgery (4) Clostridium difficile colitis (5) Left flank pain (6) Left lower quadrant pain (7) Microscopic hematuria (8) Ulcerative colitis (9) Ulcerative colitis Surgical Problems: (1) History of appendectomy (2) History of knee surgery (3) History of shoulder surgery (4) History of total colectomy Family History Diabetes mellitus FHx: cancer Social History Smoking Status: Never Smoker Alcohol Use: occasionally Drug Use: none Marital Status: Housing Status: lives with family Occupation Status: employed Current/Historical Medications Scheduled Ascorbic Acid (Vitamin C), 500 MG PO QAM Celecoxib (CeleBREX), 200 MG PO Q12 Cholecalciferol (Vitamin D), 1,000 UNITS PO QAM Cyanocobalamin (Vitamin B12), 1,000 MCG PO QAM Duloxetine Hcl (Cymbalta), 60 MG PO QAM Multivitamin (Multivitamin), 1 TAB PO DAILY Oxycodone Hcl (Oxycodone Hcl Er), 10 MG PO BID Scheduled PRN Acetaminophen (Acetaminophen Extra Stren), 1,000 MG PO Q6H PRN for Pain or Fever Lorazepam (Ativan), 1 MG PO TID PRN for Anxiety Ondansetron Hcl (Zofran), 8 MG PO Q8 PRN for Nausea Oxycodone Ir (Roxicodone Ir), 10 MG PO Q6H PRN for Pain Oxycodone Ir (Roxicodone Ir), 1-2 TAB PO Q4H PRN for Pain Zolpidem Tartrate (Zolpidem Tartrate), 5-10 MG PO HS PRN for Sleep Physical Exam Vital Signs Date Time Temp Pulse Resp B/P (MAP) Pulse Ox O2 Delivery O2 Flow Rate FiO2 02/14/17 19:33 78 20 111/76 97 02/14/17 18:08 68 20 102/61 100 02/14/17 16:49 36.6 77 18 104/68 98 Room Air Physical Exam VITALS: Vitals are noted on the nurse's note and reviewed by myself. Vital signs stable. GENERAL: This is a 41-year-old male, uncomfortable appearing, nondiaphoretic, well-developed well-nourished. MOUTH: Mucous membranes moist. NECK: Supple without nuchal rigidity. HEART: Regular rate and rhythm without murmurs gallops or rubs. LUNGS: Clear to auscultation bilaterally without wheezes, rales or rhonchi. ABDOMEN: Soft, mild tenderness to palpation in the right upper and lower quadrants. No guarding or rebound tenderness. Positive right CVA tenderness. MUSCULOSKELETAL: No muscle atrophy, erythema, or edema noted. Full range of motion without joint tenderness in all extremities. No tenderness to palpation. Normal gait. Strength 5/5 throughout. NEURO: Patient was alert and oriented to person place and time. Medical Decision & Procedures ER Provider Diagnostic Interpretation: CT OF THE ABDOMEN AND PELVIS WITHOUT CONTRAST, STONE PROTOCOL FINDINGS: Several water attenuation hepatic lesions reflect cysts. Intermediate attenuation hepatic lesions were shown to represent hemangiomas on prior imaging studies. The spleen, adrenal glands and pancreas are unremarkable on this unenhanced exam. Note is made of a 1.6 cm water attenuation lesion within the lower pole pg the right kidney which were shown to reflect a cyst on prior imaging studies. There is no hydronephrosis or hydroureter. No renal, ureteral or bladder calculi are identified. There has been interval removal of the left percutaneous nephrostomy since exam of December 09, 2016. There are interval postoperative findings involving the distal left ureter which suggest re-implantation. The left aspect of the bladder dome appears somewhat tethered. This is likely postsurgical. There is mild infiltration adjacent to the distal left ureter which is likely postsurgical. There is no fluid collection to suggest an abscess. Postoperative evaluation is suboptimal on this unenhanced exam. There are findings consistent with a subtotal colectomy. There is no evidence for a bowel obstruction. A right lower quadrant ostomy is noted. There is no pneumatosis, free air or portal venous gas. No suspicious osseous lesions are identified. IMPRESSION: 1. No urinary calculi or hydronephrosis. 2. Interval removal of the left percutaneous nephrostomy and findings suggestive of reimplantation of the distal left ureter. Findings suboptimally assessed on this unenhanced exam but mild infiltration within the operative bed is likely postsurgical. No fluid collection to suggest abscess. No upstream dilatation. Mild left pelvicalyceal urothelial thickening is nonspecific and could be correlated with urinalysis. 3. Multiple hepatic cysts and hemangiomas as shown on prior studies. 2. Status post subtotal colectomy. No bowel obstruction. Laboratory Results 02/14/17 17:18 Red Blood Count 5.04, Mean Corpuscular Volume 68.5, Mean Corpuscular Hemoglobin 20.2, Mean Corpuscular Hemoglobin Concent 29.6, Mean Platelet Volume 7.7, Neutrophils (%) (Auto) 66.7, Lymphocytes (%) (Auto) 26.3, Monocytes (%) (Auto) 5.5, Eosinophils (%) (Auto) 1.0, Basophils (%) (Auto) 0.3, Neutrophils # (Auto) 3.87, Lymphocytes # (Auto) 1.53, Monocytes # (Auto) 0.32, Eosinophils # (Auto) 0.06, Basophils # (Auto) 0.02 02/14/17 17:18 Test 02/14/17 17:18 White Blood Count 5.81 K/uL (4.8-10.8) Red Blood Count 5.04 M/uL (4.7-6.1) Hemoglobin 10.2 g/dL (14.0-18.0) Hematocrit 34.5 % (42-52) Mean Corpuscular Volume 68.5 fL (80-100) Mean Corpuscular Hemoglobin 20.2 pg (25-34) Mean Corpuscular Hemoglobin Concent 29.6 g/dl (32-36) Platelet Count 190 K/uL (130-400) Mean Platelet Volume 7.7 fL (7.4-10.4) Neutrophils (%) (Auto) 66.7 % Lymphocytes (%) (Auto) 26.3 % Monocytes (%) (Auto) 5.5 % Eosinophils (%) (Auto) 1.0 % Basophils (%) (Auto) 0.3 % Neutrophils # (Auto) 3.87 K/uL (1.4-6.5) Lymphocytes # (Auto) 1.53 K/uL (1.2-3.4) Monocytes # (Auto) 0.32 K/uL (0.11-0.59) Eosinophils # (Auto) 0.06 K/uL (0-0.5) Basophils # (Auto) 0.02 K/uL (0-0.2) RDW Standard Deviation 38.7 fL (36.4-46.3) RDW Coefficient of Variation 15.8 % (11.5-14.5) Immature Granulocyte % (Auto) 0.2 % Immature Granulocyte # (Auto) 0.01 K/uL (0.00-0.02) Microcytosis PRESENT Urine Color YELLOW Urine Appearance CLEAR (CLEAR) Urine pH 6.0 (4.5-7.5) Urine Specific [place] 1.016 (1.000-1.030) Urine Protein NEG (NEG) Urine Glucose (UA) NEG (NEG) Urine Ketones NEG (NEG) Urine Occult Blood TRACE (NEG) Urine Nitrite NEG (NEG) Urine Bilirubin NEG (NEG) Urine Urobilinogen NEG (NEG) Urine Leukocyte Esterase NEG (NEG) Urine WBC (Auto) 1-5 /hpf (0-5) Urine RBC (Auto) 0-4 /hpf (0-4) Urine Hyaline Casts (Auto) 0 /lpf (0-5) Urine Epithelial Cells (Auto) 0-5 /lpf (0-5) Urine Bacteria (Auto) NEG (NEG) Anion Gap 5.0 mmol/L (3-11) Est Creatinine Clear Calc Drug Dose 97.9 ml/min Estimated GFR () 94.8 Estimated GFR (Non- 81.8 BUN/Creatinine Ratio 7.0 (10-20) Calcium Level 8.7 mg/dl (8.5-10.1) Total Bilirubin 0.3 mg/dl (0.2-1) Aspartate Amino Transf (AST/SGOT) 11 U/L (15-37) Alanine Aminotransferase (ALT/SGPT) 16 U/L (12-78) Alkaline Phosphatase 68 U/L (45-117) Total Protein 7.4 gm/dl (6.4-8.2) Albumin 3.6 gm/dl (3.4-5.0) Globulin 3.8 gm/dl (2.5-4.0) Albumin/Globulin Ratio 0.9 (0.9-2) Lipase 139 U/L (73-393) Medications Administered Medications (Trade) Dose Ordered Sig/Luis Carlos Route Start Time Stop Time Status Last Admin Dose Admin Sodium Chloride 1,000 ml @ 999 mls/hr Q1H1M STAT IV 02/14/17 17:13 02/14/17 18:13 DC 02/14/17 17:26 999 MLS/HR Ondansetron HCl (Zofran Inj) 4 mg NOW STAT IV 02/14/17 17:13 02/14/17 17:16 DC 02/14/17 17:26 4 MG Hydromorphone HCl (Dilaudid Inj) 1 mg NOW STAT IV 02/14/17 17:54 02/14/17 17:56 DC 02/14/17 18:04 1 MG Hydromorphone HCl (Dilaudid Inj) 0.5 mg NOW STAT IV 02/14/17 18:52 02/14/17 18:53 DC 02/14/17 19:29 0.5 MG ED Course The patient was evaluated as above. Labs were drawn and IV access was obtained. Patient was medicated with 1 L NSS, 4 mg Zofran and [address] abdomen and pelvis was performed and read by radiology as above. Patient was reevaluated and still had some pain. He was given 0.5 mg Dilaudid for pain. Discharge instructions were reviewed with the patient. The patient verbalized understanding of my assessment and treatment plan and was discharged home in good condition. Medical Decision Differential diagnosis includes kidney stone, pyelonephritis, bowel obstruction , intraabdominal abscess, musculoskeletal pain, among others. The patient is a 41-year-old male who presents today complaining of right flank pain. Patient had his left ureter reattached 6 weeks ago. Labs revealed no leukocytosis. Patient has a chronic stable anemia. Urinalysis was not suggestive of infection, but did show trace blood. CT was performed given patient's history and showed no evidence of obstructing stone, normal postoperative changes. The patient's symptoms may be secondary to a recently passed stone or musculoskeletal pain. Patient was treated symptomatically and will be given a short course of pain medication to supplement his chronic pain meds. He was instructed to follow up with his primary urologist for further evaluation. Based on the patient's presentation and work up, I feel the patient is stable for outpatient treatment. The patient was educated to return to the emergency department for any worsening of their current condition or new/concerning symptoms. He will follow up with his urologist. [place] Drug Monitoring Program Search Results: patient reviewed within database Medication Reconcilliation Current Medication List: was personally [place] by [place] Blood Pressure Screening Patient's blood pressure: Normal blood pressure Impression Primary Impression: Right flank pain Departure Information Dispostion Home / Self-Care Condition GOOD Prescriptions Oxycodone Ir (Roxicodone Ir) 5 Mg Tab 1-2 TAB PO Q4H Y for Pain, #10 TAB For Initial Treatment Prov: Idalia Adamson ., [place] 02/14/17 Referrals Oscar Ruiz M.D. (PCP) Patient Instructions My [facility] Additional Instructions You have been prescribed OxyIR to be used for pain control. Take 1-2 tablets every 4-6 hours as needed for pain. This is a narcotic medication. You cannot drive or consume alcohol while on this medicine. This medicine should only be used for pain that cannot be controlled with [id number] pain medicines. For pain control, you can use the following [id number] medicines (if >12 yo): - Regular strength (325mg/tab) Tylenol (acetaminophen) 2 tabs every 4-6 hours as needed. Do not exceed 12 tablets in a 24 hour period. Avoid taking more than 4 grams (4000 mg) of Tylenol per day. This includes any other sources of acetaminophen you may take on a regular basis. Follow-up with your urologist and primary care provider this week for further evaluation. Return to the emergency department with significantly worsening pain, vomiting, fevers or any other new/concerning symptoms.
[2017-02-14 19:33] VITALS: BP 111/76; PULSE 78; O2SAT 97
== END 2017-02-14 19:33 | disposition home or self-care (01) ==
LOC: C.EDB 16:41
DX: R10.30 Lower abdominal pain, unspecified (principal); Z86.19 Personal history of other infectious and parasitic diseases; Z90.49 Acquired absence of other specified parts of digestive tract; Z98.890 Other specified postprocedural states; Z79.899 Other long term (current) drug therapy; Z83.3 Family history of diabetes mellitus; Z80.9 Family history of malignant neoplasm, unspecified

== ENCOUNTER 2017-02-15 01:25 | Emergency (ER) | payer BC ==
[~2017-02-15] VITALS: Ht 190.5 cm; Wt 82.3 kg
[~2017-02-15 01:25] MED LIST changes: +OXYC-292 PO; +ZOLP10TA6 PO
[2017-02-15 01:29] VITALS: Ht 190.5 cm; Wt 82.3 kg
[2017-02-15] MEDS ORDERED: KETOROLAC TROMETHAMINE 60 MG/2 ML VIAL IM STA (01:55)
[2017-02-15 02:19] LABS: URINE APPEARANCE CLEAR (CLEAR); URINE BILIRUBIN NEG (NEG); URINE COLOR YELLOW; URINE NITRITE NEG (NEG); URINE SPECIFIC GRAVITY 1.023 (1.000-1.030); UROBILINOGEN NEG (NEG); ZZUR CULT IF INDIC CLEAN CATCH NO
[2017-02-15 02:22] LABS: MANUAL MICROSCOPIC REQUIRED? NO; REVIEW REQ? NO
[2017-02-15 02:39] VITALS: BP 118/77; PULSE 67; TEMP 36.6; O2SAT 99
--- NOTE | 2017-02-15 04:29 | EMERGENCY ROOM VISIT NOTE ---
History First contact with patient: 01:36 Chief Complaint: FLANK PAIN Stated Complaint: KIDNEY PAIN History of Present Illness The patient is a 41 year old male who presents to the Emergency Room with complaints of ongoing right flank pain. The patient was seen and evaluated with this complaint approximately 8 hours ago, and now returns for ongoing discomfort. The patient had blood work, urine testing, and CT scan of the abdomen and pelvis several hours ago. He was treated with fluids and pain medication. He felt well at the time of discharge and was given a short course of oxycodone. The patient states that he went home, and was able to rest. He woke up and had return of his pain. He took an oxycodone and states this did not improve his symptoms. The patient states his pain has returned to the level that it was previously. He has not had injury or trauma. No fever or chills. He rates his discomfort an 8/10. Review of Systems More than 10 systems were reviewed and otherwise negative with the exception of history of present illness. Past Medical/Surgical History Medical Problems: (1) Abdominal pain (2) Acute renal insufficiency (3) back surgery (4) Clostridium difficile colitis (5) Left flank pain (6) Left lower quadrant pain (7) Microscopic hematuria (8) Ulcerative colitis (9) Ulcerative colitis Surgical Problems: (1) History of appendectomy (2) History of knee surgery (3) History of shoulder surgery (4) History of total colectomy Family History Diabetes mellitus FHx: cancer Social History Smoking Status: Never Smoker Alcohol Use: occasionally Drug Use: none Marital Status: Housing Status: lives with family Occupation Status: employed Current/Historical Medications Scheduled Ascorbic Acid (Vitamin C), 500 MG PO QAM Celecoxib (CeleBREX), 200 MG PO Q12 Cholecalciferol (Vitamin D), 1,000 UNITS PO QAM Cyanocobalamin (Vitamin B12), 1,000 MCG PO QAM Duloxetine Hcl (Cymbalta), 60 MG PO QAM Multivitamin (Multivitamin), 1 TAB PO DAILY Oxycodone Hcl (Oxycodone Hcl Er), 10 MG PO BID Scheduled PRN Acetaminophen (Acetaminophen Extra Stren), 1,000 MG PO Q6H PRN for Pain or Fever Lorazepam (Ativan), 1 MG PO TID PRN for Anxiety Ondansetron Hcl (Zofran), 8 MG PO Q8 PRN for Nausea Oxycodone Ir (Roxicodone Ir), 10 MG PO Q6H PRN for Pain Oxycodone Ir (Roxicodone Ir), 1-2 TAB PO Q4H PRN for Pain Zolpidem Tartrate (Zolpidem Tartrate), 5-10 MG PO HS PRN for Sleep Physical Exam Vital Signs Date Time Temp Pulse Resp B/P (MAP) Pulse Ox O2 Delivery O2 Flow Rate FiO2 02/15/17 02:39 36.6 67 16 118/77 99 02/15/17 01:29 36.6 67 16 118/77 99 Room Air Pain Rating (0-10): 3.0 Physical Exam VITALS: Vitals are noted on the nurse's note and reviewed by myself. Vital signs stable. GENERAL: Well-developed, well-nourished, white male who appears mildly uncomfortable but not toxic. He is resting on his right side in his emergency department bed. NECK: Supple without nuchal rigidity. No lymphadenopathy. No thyromegaly. Cervical spine is nontender. HEART: Regular rate and rhythm without murmurs gallops or rubs. LUNGS: Clear to auscultation bilaterally without wheezes, rales or rhonchi. No retractions or accessory muscle use. ABDOMEN: Positive normal bowel sounds x 4. Soft, nontender, without masses or organomegaly. No guarding or rebound tenderness. No CVA tenderness. No paravertebral spasm. MUSCULOSKELETAL: No muscle atrophy, erythema, or edema noted. Full range of motion without joint tenderness in all extremities. Medical Decision & Procedures Laboratory Results Test 02/15/17 02:00 Urine Color YELLOW Urine Appearance CLEAR (CLEAR) Urine pH 7.0 (4.5-7.5) Urine Specific [place] 1.023 (1.000-1.030) Urine Protein NEG (NEG) Urine Glucose (UA) NEG (NEG) Urine Ketones NEG (NEG) Urine Occult Blood TRACE (NEG) Urine Nitrite NEG (NEG) Urine Bilirubin NEG (NEG) Urine Urobilinogen NEG (NEG) Urine Leukocyte Esterase NEG (NEG) Urine WBC (Auto) 1-5 /hpf (0-5) Urine RBC (Auto) 5-10 /hpf (0-4) Urine Hyaline Casts (Auto) 1-5 /lpf (0-5) Urine Epithelial Cells (Auto) 5-10 /lpf (0-5) Urine Bacteria (Auto) NEG (NEG) Medications Administered Medications (Trade) Dose Ordered Sig/Luis Carlos Route Start Time Stop Time Status Last Admin Dose Admin Ketorolac Tromethamine (Toradol Inj) 60 mg NOW STAT IM 02/15/17 01:55 02/15/17 01:56 DC 02/15/17 02:13 60 MG ED Course Physical exam and history were performed. Nursing notes, EMR, and Medication List were personally reviewed. Patient appears to have reports of ongoing right flank pain. He was seen only a few hours ago here in this department with this complaint. I was able to review the results from that visit. He does not have a significantly elevated white blood cell count or significant anemia. Urine was with a very small amount of blood but no evidence of infection. His CT scan was also without acute findings, specifically no right sided ureteral calculi were noted. He did have some left-sided postoperative changes, but these appear essentially identical to CT scan performed 2 months ago at this facility. I spent a significant amount of time reviewing the patient's results, and he feels strongly that he has or is passing a kidney stone. I did request the patient provide another urine sample for us, and this continued without signs of infection or gross hematuria. I do not feel the patient has a ureteral calculi. I did review the [place] drug monitoring program website for the patient. He evidently has 84 prescriptions for controlled substances over the past 12 months, including oxycodone and OxyContin. Based on his refill rate, he does appear to be completing his prescriptions early. Additionally review of our EMR shows the patient is on a no narcotic treatment plan at this facility for the past 6 years. I do not feel comfortable providing the patient additional narcotic intervention for his pain. He was provided 60 mg IM Toradol here in the department. He is unable to take oral NSAIDs because a history of Crohn's disease, but has done well with IM Toradol in the past. I did discuss the case with my attending physician, Dr. Buck, and overall we feel that his evaluation to this point has been appropriate. His symptoms could certainly be the result of a musculoskeletal etiology. There is also the possibility that he may have recently passed a kidney stone and has residual discomfort from this. Regardless he will be referred back to his primary care physician for further care and management. He was advised on worrisome symptoms to return to the ER. He was otherwise invited back with any new, worsening, or concerning symptoms. The chart was completed utilizing [employer] Speech Voice Recognition Software. Grammatical errors, random word insertions, pronoun errors, and incomplete sentences are an occasional consequence of this system due to software limitations, ambient noise, and hardware issues. Any formal questions or concerns about the content, text, or information contained within the body of this dictation should be directly addressed to the provider for clarification. . Medical Decision Differential diagnosis: Etiologies such as drug seeking behavior, renal colic, appendicitis, diverticulitis, mesenteric ischemia, aortic pathology, infections, inflammatory bowel disease, PUD, biliary pathology, UTI, as well as others were entertained. [place] Drug Monitoring Program Search Results: patient reviewed within database, see additional documentation Medication Reconcilliation Current Medication List: was personally reviewed by me Blood Pressure Screening Blood pressure disposition: Elevated BP felt to be situational Impression Primary Impression: Right flank pain Departure Information Dispostion Home / Self-Care Condition GOOD Referrals Oscar Ruiz M.D. (PCP) Forms HOME CARE DOCUMENTATION FORM, IMPORTANT VISIT INFORMATION Patient Instructions My [facility] Additional Instructions You were seen and evaluated today on an emergency basis only. This is not a substitute for, or an effort to provide, complete comprehensive medical care. It is not possible to recognize and treat all injuries or illnesses in a single emergency department visit. For this reason it is recommended that you followup with your primary care physician for ongoing care and evaluation. Continue your at-home medications as prescribed You are welcome to return to the emergency department anytime with new, worsening, or concerning symptoms.
== END 2017-02-15 02:40 | disposition home or self-care (01) ==
LOC: C.EDB 01:26
DX: R10.9 Unspecified abdominal pain (principal); Z79.899 Other long term (current) drug therapy; Z86.19 Personal history of other infectious and parasitic diseases; Z87.448 Personal history of other diseases of urinary system; Z87.898 Personal history of other specified conditions; Z83.3 Family history of diabetes mellitus

== ENCOUNTER 2017-06-27 03:49 | Emergency (ER) | payer BC ==
[~2017-06-27] VITALS: Ht 190.5 cm; Wt 79.7 kg
[~2017-06-27 03:49] MED LIST changes: -ONDA4TAB10 SL; -ZOLP5TAB PO
[2017-06-27 04:00] VITALS: TEMP 36.3; Ht 190.5 cm; Wt 79.7 kg
[2017-06-27] MEDS ORDERED: SODIUM CHLORIDE 0.9% 1000ML 1,000 ML IV STA ×2 (04:07→05:06)
[2017-06-27] MEDS ORDERED: ONDANSETRON INJ 2 MG/ML 2 ML VIAL IV STA (04:07)
[2017-06-27 04:17] VITALS: O2SAT 97
[2017-06-27 04:32] LABS: BASO % 0.4 %; BASO ABS # 0.03 K/uL (0-0.2); EOS ABS # 0.07 K/uL (0-0.5); HEMATOCRIT 41.2 % (42-52); HEMOGLOBIN 13.6 g/dL (14.0-18.0); IG# 0.01 K/uL (0.00-0.02); LYMPH % 31.5 %; LYMPH ABS # 2.28 K/uL (1.2-3.4); MEAN CELL VOLUME 73.8 fL (80-100); MEAN CORPUSCULAR HEMOGLOBIN 24.4 pg (25-34); MEAN PLATELET VOLUME 8.5 fL (7.4-10.4); MONO % 7.7 %; MONO ABS # 0.56 K/uL (0.11-0.59); NEUT % 59.3 %; NEUT ABS # 4.29 K/uL (1.4-6.5); PLATELET COUNT 177 K/uL (130-400); RED CELL DISTRIBUTION WIDTH CV 16.3 % (11.5-14.5); RED CELL DISTRIBUTION WIDTH SD 43.9 fL (36.4-46.3); WHITE BLOOD COUNT 7.24 K/uL (4.8-10.8)
[2017-06-27] MEDS ORDERED: ACETAMINOPHEN 500 MG TAB PO STA (04:39)
[2017-06-27 04:42] LABS: PTT PATIENT 26.6 SECONDS (21.0-31.0)
[2017-06-27 04:52] LABS: ALT/SGPT 19 U/L (12-78); AST/SGOT 9 U/L (15-37); BLOOD UREA NITROGEN 16 mg/dl (7-18); CALCIUM 9.2 mg/dl (8.5-10.1); CARBON DIOXIDE 28 mmol/L (21-32); CREATININE 1.39 mg/dl (0.60-1.40); GLUCOSE 77 mg/dl (70-99); POTASSIUM 3.2 mmol/L (3.5-5.1); SODIUM 138 mmol/L (136-145)
[2017-06-27 04:54] LABS: ALKALINE PHOSPHATASE 73 U/L (45-117); TOTAL PROTEIN 8.2 gm/dl (6.4-8.2)
[2017-06-27] MEDS ORDERED: CYM/30 PO (05:11)
[2017-06-27] MEDS ORDERED: OPTIRAY 320 IV PRN (05:15)
[2017-06-27] MEDS ORDERED: POTASSIUM CHLORIDE 10 MEQ TABCR PO STA (05:37)
[2017-06-27] MEDS ORDERED: KETOROLAC TROMETHAMINE 30 MG/ML VIAL IV STA (05:56)
--- NOTE | 2017-06-27 06:09 | DIAGNOSTIC IMAGING REPORT ---
PELVIS W/IV CONT ONLY (CT) CLINICAL HISTORY: 41 years-old Male presenting with rectal bleeding, history of colectomy in September. TECHNIQUE: Multidetector CT of the pelvis was performed after the administration of intravenous contrast. IV contrast: 94 mL of Optiray 320. A dose lowering technique was used consistent with the principles of ALARA (as low as reasonably achievable). COMPARISON: 02/14/2017. CT DOSE (mGy.cm): The estimated cumulative dose is 201.71 mGy.cm. FINDINGS: Jewel Stripper topogram: Unremarkable. Right abdominal ileostomy with postsurgical changes of colectomy. Intramural fat deposition in the heart is pouch could indicate chronic inflammation. The Monteiro pouch is otherwise normal in appearance. No free fluid or gas in the pelvis. No lymphadenopathy. Vessels patent. Postsurgical changes of the infraumbilical abdominal wall with subjacent extraperitoneal stranding in the superior pelvis likely postsurgical scarring. The bladder is decompressed but mildly thick-walled, which may indicate chronic bladder obstruction. The prostate is not significantly enlarged. Osseous structures normal. IMPRESSION: Intramural fat deposition in the Monteiro's pouch could indicate chronic inflammatory changes. Notably, fat deposition is nonspecific and can be seen in other conditions such as extended steroid exposure, obesity, or chemotherapy. No other abnormality. Postsurgical changes of colectomy. Electronically signed by: Zenon Aguilera M.D. 06/27/2017 6:07 AM Dictated Date/Time: 06/27/2017 6:04 AM
--- NOTE | 2017-06-27 06:22 | EMERGENCY ROOM VISIT NOTE ---
History First contact with patient: 04:07 Chief Complaint: RECTAL BLEEDING Stated Complaint: RECTAL BLEEDING Nursing Triage Summary: see triage note History of Present Illness The patient is a 41 year old male who presents to the Emergency Room with complaints of rectal pain and bleeding for the past week who was seen and a possible [place] and had a sigmoidoscopy last week then that revealed inflammation from the anus to the rectum secondary to proctitis ulcerative colitis. Patient brought in the report for review. Patient's GI doctor is Dr. Edouard. He's been turning get a hold of him without success. Patient has had colectomy and has a ostomy bag. Normal stool production. Patient states he feels the urge to go the bathroom and nothing the blood comes out. This happens a few times a day. No blood transfusions in the past. Patient denies chest pain, abdominal pain, dyspnea, fever, chills, vomiting. Patient states he does feel weak. He is tolerating fluids but has a lack of appetite. Review of Systems See HPI for pertinent positives & negatives. A total of 10 systems reviewed and were otherwise negative. Past Medical/Surgical History Medical Problems: (1) Abdominal pain (2) Acute renal insufficiency (3) back surgery (4) Clostridium difficile colitis (5) Left flank pain (6) Left lower quadrant pain (7) Microscopic hematuria (8) Ulcerative colitis (9) Ulcerative colitis Surgical Problems: (1) History of appendectomy (2) History of knee surgery (3) History of shoulder surgery (4) History of total colectomy Family History Diabetes mellitus FHx: cancer Social History Smoking Status: Never Smoker Alcohol Use: occasionally Drug Use: none Marital Status: Housing Status: lives with family Occupation Status: employed Current/Historical Medications Scheduled Ascorbic Acid (Vitamin C), 500 MG PO QAM Cyanocobalamin (Vitamin B12), 1,000 MCG PO QAM Duloxetine HCl (Cymbalta), 90 MG PO DAILY Multivitamin (Multivitamin), 1 TAB PO DAILY Scheduled PRN Acetaminophen (Acetaminophen Extra Stren), 1,000 MG PO Q6H PRN for Pain or Fever Lorazepam (Ativan), 1 MG PO TID PRN for Anxiety Ondansetron Hcl (Zofran), 8 MG PO Q8 PRN for Nausea Zolpidem Tartrate (Zolpidem Tartrate), 5-10 MG PO HS PRN for Sleep Physical Exam Vital Signs Date Time Temp Pulse Resp B/P (MAP) Pulse Ox O2 Delivery O2 Flow Rate FiO2 06/27/17 06:02 72 15 95/62 100 Room Air 06/27/17 05:33 64 14 116/80 100 Room Air 06/27/17 04:51 76 14 90/63 98 Room Air 06/27/17 04:49 73 17 99 06/27/17 04:25 84 06/27/17 04:22 87/58 06/27/17 04:17 97 Room Air 06/27/17 04:00 36.3 105 20 109/73 98 Room Air Physical Exam VITALS: Vitals are noted on the nurse's note and reviewed by myself. Vital signs mildly hypotensive. GENERAL: Pleasant male, in no acute distress, nondiaphoretic, well-developed well-nourished. SKIN: The skin was without rashes, erythema, edema, or bruising. There is no tenting of the skin. Capillary reflex less than 2 seconds. HEAD: Normocephalic atraumatic. EARS: External auditory canals clear, tympanic membranes pearly sahu without erythema or effusion bilaterally. EYES: Pupils equal round and reactive to light and accommodation. Conjunctivae without injection, sclerae without icterus. Extraocular movements intact. NOSE: Patent, turbinates without inflammation or discharge. MOUTH: Mucous membranes mildly dry. Pharynx without erythema or exudate. Uvula midline. Airway patent. Tongue does not deviate. NECK: Supple without nuchal rigidity. No lymphadenopathy. No thyromegaly. Cervical spine is nontender. No JVD. HEART: Regular rate and rhythm without murmurs gallops or rubs. LUNGS: Clear to auscultation bilaterally without wheezes, rales or rhonchi. No dullness to percussion. No retractions or accessory muscle use. ABDOMEN: Positive bowel sounds x 4. Normal tympanic percussion. Soft, nontender, right lower quadrant with ostomy bag actively producing stool, no CVA tenderness, without masses or organomegaly. Corona sign negative. No guarding or rebound tenderness. Rectal exam: No fissures or tears. No hemorrhoids. Telegraphic Instrument Supervisor present. MUSCULOSKELETAL: No muscle atrophy, erythema, or edema noted. NEURO: Patient was alert and oriented to person place and time. Normal sensation to light and sharp touch. No focal neurological deficits. Medical Decision & Procedures Laboratory Results 06/27/17 04:20 Red Blood Count 5.58, Mean Corpuscular Volume 73.8, Mean Corpuscular Hemoglobin 24.4, Mean Corpuscular Hemoglobin Concent 33.0, Mean Platelet Volume 8.5, Neutrophils (%) (Auto) 59.3, Lymphocytes (%) (Auto) 31.5, Monocytes (%) (Auto) 7.7, Eosinophils (%) (Auto) 1.0, Basophils (%) (Auto) 0.4, Neutrophils # (Auto) 4.29, Lymphocytes # (Auto) 2.28, Monocytes # (Auto) 0.56, Eosinophils # (Auto) 0.07, Basophils # (Auto) 0.03 06/27/17 04:20 Test 06/27/17 04:20 06/27/17 04:34 06/27/17 05:28 White Blood Count 7.24 K/uL (4.8-10.8) Red Blood Count 5.58 M/uL (4.7-6.1) Hemoglobin 13.6 g/dL (14.0-18.0) Hematocrit 41.2 % (42-52) Mean Corpuscular Volume 73.8 fL (80-100) Mean Corpuscular Hemoglobin 24.4 pg (25-34) Mean Corpuscular Hemoglobin Concent 33.0 g/dl (32-36) Platelet Count 177 K/uL (130-400) Mean Platelet Volume 8.5 fL (7.4-10.4) Neutrophils (%) (Auto) 59.3 % Lymphocytes (%) (Auto) 31.5 % Monocytes (%) (Auto) 7.7 % Eosinophils (%) (Auto) 1.0 % Basophils (%) (Auto) 0.4 % Neutrophils # (Auto) 4.29 K/uL (1.4-6.5) Lymphocytes # (Auto) 2.28 K/uL (1.2-3.4) Monocytes # (Auto) 0.56 K/uL (0.11-0.59) Eosinophils # (Auto) 0.07 K/uL (0-0.5) Basophils # (Auto) 0.03 K/uL (0-0.2) RDW Standard Deviation 43.9 fL (36.4-46.3) RDW Coefficient of Variation 16.3 % (11.5-14.5) Immature Granulocyte % (Auto) 0.1 % Immature Granulocyte # (Auto) 0.01 K/uL (0.00-0.02) Prothrombin Time 10.3 SECONDS (9.0-12.0) Prothromb Time International Ratio 1.0 (0.9-1.1) Activated Partial Thromboplast Time 26.6 SECONDS (21.0-31.0) Partial Thromboplastin Ratio 1.0 Anion Gap 4.0 mmol/L (3-11) Est Creatinine Clear Calc Drug Dose 77.2 ml/min Estimated GFR () 71.4 Estimated GFR (Non- 61.6 BUN/Creatinine Ratio 11.8 (10-20) Calcium Level 9.2 mg/dl (8.5-10.1) Total Bilirubin 0.5 mg/dl (0.2-1) Direct Bilirubin < 0.1 mg/dl (0-0.2) Aspartate Amino Transf (AST/SGOT) 9 U/L (15-37) Alanine Aminotransferase (ALT/SGPT) 19 U/L (12-78) Alkaline Phosphatase 73 U/L (45-117) Total Protein 8.2 gm/dl (6.4-8.2) Albumin 4.0 gm/dl (3.4-5.0) Bedside Troponin I < 0.030 ng/ml (0-0.045) Urine Color YELLOW Urine Appearance CLEAR (CLEAR) Urine pH 5.5 (4.5-7.5) Urine Specific [place] 1.045 (1.000-1.030) Urine Protein NEG (NEG) Urine Glucose (UA) NEG (NEG) Urine Ketones TRACE (NEG) Urine Occult Blood 1+ (NEG) Urine Nitrite NEG (NEG) Urine Bilirubin NEG (NEG) Urine Urobilinogen NEG (NEG) Urine Leukocyte Esterase NEG (NEG) Urine WBC (Auto) 1-5 /hpf (0-5) Urine RBC (Auto) 0-4 /hpf (0-4) Urine Hyaline Casts (Auto) 1-5 /lpf (0-5) Urine Epithelial Cells (Auto) 5-10 /lpf (0-5) Urine Bacteria (Auto) NEG (NEG) Medications Administered Medications (Trade) Dose Ordered Sig/Luis Carlos Route Start Time Stop Time Status Last Admin Dose Admin Sodium Chloride 1,000 ml @ 999 mls/hr Q1H1M STAT IV 06/27/17 04:07 06/27/17 05:07 DC 06/27/17 04:28 999 MLS/HR Ondansetron HCl (Zofran Inj) 4 mg NOW STAT IV 06/27/17 04:07 06/27/17 04:11 DC 06/27/17 04:28 4 MG Acetaminophen (Tylenol Tab) 1,000 mg NOW STAT PO 06/27/17 04:39 06/27/17 04:40 DC 06/27/17 04:49 1,000 MG Sodium Chloride 1,000 ml @ 999 mls/hr Q1H1M STAT IV 06/27/17 05:06 06/27/17 06:06 DC 06/27/17 05:27 999 MLS/HR Potassium Chloride (Klor-Con M10) 30 meq NOW STAT PO 06/27/17 05:37 06/27/17 05:38 DC 06/27/17 05:47 30 MEQ Ketorolac Tromethamine (Toradol Inj) 30 mg NOW STAT IV 06/27/17 05:56 06/27/17 05:57 DC 06/27/17 06:00 30 MG ED Course Prior records/ancillary studies reviewed. Triage Nursing notes reviewed. The patient's history was concerning for possible gastrointestinal bleeding. Differential diagnosis: Etiologies such as diverticulosis, AVM, coagulopathy, colitis, inflammatory bowel disease, malignancy, UC flare, fissure, hemorrhoids, as well as others were entertained. Physical exam: As above. The patients vital signs were mildly hypotensive and improved after some IV fluids. ER treatment provided: IV fluids, Zofran On reassessment the patient felt better. Diagnostics interpreted by me: ECG: Normal sinus, normal intervals, no acute ST-T wave changes. Impression normal sinus rhythm interpreted by myself. Unchanged from prior EKG. The labs revealed improving anemia. Hypokalemia and this is replaced orally. Negative urine Patient was complaining of ongoing rectal pain and was slightly hypotensive so imaging was ordered. Imaging studies: CT pelvis: Prior study 02/14/2017, CT abdomen pelvis. Status post colectomy Right lower quadrant ileostomy Rectum is nondistended. No inflammatory changes around the rectum. No definite wall thickening. No fluid collection. Multiple small perirectal nodes. Similar to prior. Bladder wall thickening versus partial distention. Correlate for cystitis Radiologist: Lesly Rodriguez M.D. I had the secretary to board of commissioners attempt to obtain the records from the [facility] for review. He did bring in his sigmoidoscopy report for review. I did review the Hospital records from the other hospital. Patient did have his sigmoidoscopy. He was advised to continue his [place] But Has Declined as he states it is painful for him to insert it in his rectum. This appears to be consistent with rectal bleeding that has been ongoing for over a week. Patient had Toradol, past without difficulties. This is given to him for pain along with Tylenol. Patient seemed displeased with this. Patient is requesting something stronger. He was informed that all narcotics must be obtained from his family care doctor or pain management. He said 116 scripts this year. Patient was displeased with this. Patient's anemia is actually improved. Negative CT imaging. Patient did not have an acute abdomen on exam. He was prescribed [place] 100mg [place] QHS and stated it felt like razor blades so he stopped taking the suppositories. He was advised to follow-up with his GI doctor in a few days or here in the ER sooner for severe pain, fevers, heavy bleeding, worsening signs or symptoms or as needed. Patient had improved anemia. He was not actively bleeding on exam. By the evaluation outlined above emergent etiologies such as esophageal perforation, peptic ulcer disease, variceal bleed, coagulopathy, gastritis, epistaxis, malignancy, as well as others were deemed relatively unlikely. The pt informed about the findings as listed above. All questions were answered. Return instructions were outlined and the patient was discharged in stable condition. Referral: The patient was referred back to their GI doctor for follow-up in 2 to 3 days for a recheck of the current condition Case reviewed with my attending Medical Decision As above [place] Drug Monitoring Program Search Results: patient reviewed within database, see additional documentation (patient has had multiple narcotic prescriptions this year from multiple providers) Medication Reconcilliation Current Medication List: was personally reviewed by me Blood Pressure Screening Patient's blood pressure: Normal blood pressure Impression Primary Impression: Rectal bleeding Departure Information Dispostion Home / Self-Care Condition GOOD Referrals Oscar Ruiz M.D. (PCP) Patient Instructions My [facility] Additional Instructions Acetaminophen(Tylenol) may be used for fever or pain. Use 1000mg every six hours as needed. Avoid using more than 3000mg in a 24 hour period. Rest and drink plenty of fluids as tolerated. Continue current medications. Avoid strenuous activities and anything that worsens your pain. Resume normal activities once your symptoms resolve. Return to the ER immediately for worsening or persistent rectal pain, abdominal pain, vomiting, fevers, chest pains, difficulty breathing, worsening of your condition, or as needed. Follow up with your primary physician and GI doctor in 2-3 days for a recheck of your current condition.
[2017-06-27 06:25] VITALS: BP 92/64; PULSE 73; O2SAT 99
== END 2017-06-27 06:25 | disposition home or self-care (01) ==
LOC: C.EDB 03:50 → C.EDA 06:25
DX: K62.5 Hemorrhage of anus and rectum (principal); K51.90 Ulcerative colitis, unspecified, without complications; Z90.49 Acquired absence of other specified parts of digestive tract; R03.1 Nonspecific low blood-pressure reading; Z83.3 Family history of diabetes mellitus

== ENCOUNTER → 2017-07-08 | Outpatient (CLI) | payer OTHER ==
[~2017-07-08] MED LIST changes: -CHOL100010 PO; -CLB/200 PO; +CYM/30 PO; -DULO60CA44 PO; -OXYC-292 PO; -OXYC1TAB3 PO
--- NOTE | 2017-07-08 16:45 | DIAGNOSTIC IMAGING REPORT ---
C-SPINE ROUTINE 4 OR 5 VIEWS CLINICAL HISTORY: Neck pain following injury. COMPARISON STUDY: MRI of the cervical spine December 03, 2011. FINDINGS: Alignment of the cervical spine is anatomic. Visualization is adequate. There is no fracture. Facet joints are intact. Prevertebral soft tissues are unremarkable by radiography. IMPRESSION: No cervical spine fracture or subluxation. Electronically signed by: Timbo Stokes M.D. 07/08/2017 4:44 PM Dictated Date/Time: 07/08/2017 4:41 PM
== END | disposition home or self-care (01) ==
LOC: C.RAD1850 16:22
PROVIDERS: ATTEND Emergency Medicine
DX: M54.2 Cervicalgia (principal); W21.220A Struck by ice hockey puck, initial encounter